=== PATIENT | male | born 1955 | race Caucasian/White ===

== ENCOUNTER → 2016-04-06 | Outpatient (CLI) | payer OTHER, MEDICARE ==
[~2016-04-06] MED LIST: ACET-1256 PO; ALBINS/ INH; ALBUAER2 INH; ASCO500T16 PO; ASPI81TA28 PO; BND25X PO; CLON0.5T3 PO; CLON1TAB3 PO; DIPH25CA5 PO; DOXY100C76 PO; FENO134C2 PO; GABA800T PO; HYDR-3124 PO; INSDGI SC; INSPMPRGR SQ; INSUINJ17 SC; LISI-725 PO; MELO15TA4 PO; METR-163 PO; MULT-513 PO; ONDA4TAB10 SL; PRAV20TA PO; PRED20TA PO; SERT-234 PO; TEMA30CA4 PO; VNTHFA/IN INH; mucinex PO
--- NOTE | 2016-04-06 15:14 | DIAGNOSTIC IMAGING REPORT ---
TWO VIEW CHEST CLINICAL HISTORY: Cough. Fever. FINDINGS: PA and lateral chest radiographs are compared to study dated 03/11/2016 and correlated with chest CT dated 07/10/2015. The heart is mildly enlarged. The pulmonary vasculature is noncongested. The lungs and pleural spaces are clear. There is no pneumothorax. Small calcified granulomas are similar to previous. The bony thorax appears intact. Degenerative change and DISH are noted in the thoracic spine. IMPRESSION: Mild cardiac enlargement with no acute cardiopulmonary abnormality. Electronically signed by: Yahir Thomas M.D. 04/06/2016 3:12 PM
== END | disposition home or self-care (01) ==
LOC: C.RAD 14:48
PROVIDERS: ATTEND Family Medicine
DX: R05 Cough (principal)

== ENCOUNTER 2016-04-13 14:36 | Emergency (ER) | payer OTHER, MEDICARE ==
[~2016-04-13] VITALS: Ht 185.4 cm; Wt 127.6 kg
[~2016-04-13 14:36] MED LIST changes: -ACET-1256 PO; -ALBINS/ INH; -ASCO500T16 PO; -ASPI81TA28 PO; -BND25X PO; -CLON0.5T3 PO; -CLON1TAB3 PO; -DIPH25CA5 PO; -DOXY100C76 PO; -FENO134C2 PO; -GABA800T PO; -HYDR-3124 PO; -INSDGI SC; -INSPMPRGR SQ; -INSUINJ17 SC; -LISI-725 PO; -MELO15TA4 PO; -METR-163 PO; -MULT-513 PO; -PRAV20TA PO; -PRED20TA PO; -SERT-234 PO; -TEMA30CA4 PO; -VNTHFA/IN INH; -mucinex PO
[2016-04-13 14:46] VITALS: TEMP 37; Ht 185.4 cm; Wt 127.6 kg
--- NOTE | 2016-04-13 15:37 | DIAGNOSTIC IMAGING REPORT ---
CHEST ONE VIEW PORTABLE CLINICAL HISTORY: Respiratory distress. Dyspnea. COMPARISON STUDY: Chest radiograph September. FINDINGS: Lung volumes are at the lower limits of normal. Mild lower lung interstitial thickening is unchanged. There is no evidence of pulmonary edema. Cardiomediastinal silhouette is stable. IMPRESSION: No acute cardiopulmonary findings. No change in appearance of the chest. Electronically signed by: Lm Quintanilla M.D. 04/13/2016 3:35 PM Dictated Date/Time: 04/13/2016 3:34 PM
[2016-04-13] MEDS ORDERED: METHYLPREDNISOLONE 125 MG VIAL IV STA (15:43)
[2016-04-13] MEDS ORDERED: ALBUT/IPRATROP 3MG/0.5MG NEB 3 ML VIAL INH STA (15:43)
[2016-04-13] MEDS ORDERED: LORAZEPAM 1 MG TAB SL STA (15:49)
[2016-04-13 16:11] LABS: BASO % 0.3 %; BASO ABS # 0.03 K/uL (0-0.2); COMPLETE YES; EOS % 2.6 %; HEMATOCRIT 41.8 % (42-52); IG% 0.4 %; LYMPH % 27.8 %; LYMPH ABS # 2.55 K/uL (1.2-3.4); MEAN CELL VOLUME 85.8 fL (80-100); MEAN CORPUSCULAR HEMOGLOBIN 28.7 pg (25-34); MEAN CORPUSCULAR HGB CONC 33.5 g/dl (32-36); MEAN PLATELET VOLUME 10.2 fL (7.4-10.4); NEUT % 63.9 %; PLATELET COUNT 242 K/uL (130-400); RED BLOOD COUNT 4.87 M/uL (4.7-6.1); WHITE BLOOD COUNT 9.18 K/uL (4.8-10.8)
[2016-04-13 16:27] LABS: BUN/CREATININE RATIO 25.1 (10-20); CALCIUM 9.7 mg/dl (8.5-10.1); CREATININE 1.3 mg/dl (0.60-1.40); POTASSIUM 4.8 mmol/L (3.5-5.1)
[2016-04-13 16:29] LABS: ALB/GLOB RATIO 0.8 (0.9-2)
[2016-04-13 16:36] LABS: BETA-HYDROXYBUTYRATE 2.05 mg/dL (0.2-2.81)
[2016-04-13] MEDS ORDERED: NovoLIN-R INSULIN PER UNIT CHARGE IV STA (17:10)
[2016-04-13] MEDS ORDERED: DOXYCYCLINE HYCLATE 100 MG CAP PO ONE (17:15)
[2016-04-13] MEDS ORDERED: DOXY100C76 PO (18:45)
[2016-04-13] MEDS ORDERED: PRED20TA PO (18:45)
[2016-04-13] MEDS ORDERED: ALBINS/ INH (18:45)
[2016-04-13 19:05] VITALS: BP 126/90; PULSE 104; O2SAT 93
--- NOTE | 2016-04-13 22:48 | EMERGENCY ROOM VISIT NOTE ---
History Report prepared by David: Chastity Oakley Under the Supervision of: Dr. Jose Armando Bermeo M.D. First contact with patient: 15:15 Chief Complaint: RESPIRATORY PROBLEMS Stated Complaint: EXAC COPD History of Present Illness The patient is a 60 year old male who presents to the Emergency Room with complaints of worsening cough for the past several weeks. He states "I've been sick since Thanksgiving". 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 He reports he usually experiences bronchitis and pneumonia every year because of that. His cough is productive with green sputum and he has also experienced some shortness of breath and a fever. His highest temperature was 100.6 degrees. He has experienced diaphoresis in the evenings, stating he has had to change his pajamas "twice a night". The patient notes he recently finished Levaquin after being diagnosed with conjunctivitis and was started on an Albuterol nebulizer last week. The nebulizer has provided minimal relief, but has increased the patient's anxiety. The last time he was on steroids was early in the fall of 2016. He is a former smoker but states he quit 15 years ago. His appetite has been "too good" recently. The patient denies any LOC, headache, chills, visual changes, neck pain, chest pain, nausea , vomiting, abdominal pain, back pain, melena, hematochezia, urinary symptoms, numbness, weakness, lymphadenopathy, rash, or other complaints. Source of History: patient Onset: past several weeks Position: chest Timing: worsening Modifying Factors (Relieving): other (Albuterol nebulizer) Associated Symptoms: + SOB, + diaphoresis, + fevers Review of Systems See HPI for pertinent positives and negatives. A total of ten systems were reviewed and were otherwise negative. Past Medical & Surgical Medical Problems: (1) animal bite cellulitis (2) Anxiety (3) Diabetes (4) Hyperlipidemia (5) Hypertension (6) PTSD (post-traumatic stress disorder) Family History Patient reports no known family medical history. Social History Smoking Status: Former Smoker Alcohol Use: none Drug Use: none Marital Status: in relationship Housing Status: lives with significant other Occupation Status: disabled Current/Historical Medications Scheduled Aspirin (Aspirin Ec), 81 MG PO DAILY Clonazepam (Klonopin), 1 MG PO TID Doxycycline Monohydrate (Monodox), 100 MG PO BID Fenofibrate (Tricor ), 134 MG PO DAILY Gabapentin (Neurontin), 800 MG PO TID Insulin Glargine (Lantus), 88 UNITS SC QPM Insulin Human Regular (Humulin R), 20 UNITS SQ HS Insulin Regular (Humulin-R), 12 UNITS SC TIDM Lisinopril (Zestril), 20 MG PO HS Multivitamins/Minerals (Mvi With Minerals), 1 TAB PO DAILY Ondasetron Odt (Zofran Odt), 4 MG SL Q6H Pravastatin (Pravachol ), 20 MG PO DAILY Prednisone (Prednisone), 40 MG PO DAILY Sertraline (Zoloft), 100 MG PO DAILY Temazepam (Restoril), 30 MG PO HS [mucinex], 50 MG PO TID Scheduled PRN Acetaminophen (Tylenol), 1,000 MG PO HS PRN for Pain Albuterol (Ventolin), 2 PUFFS INH QID PRN for Shortness of Breath Albuterol Sulf (Proventil 0.083% 2.5MG/3ML), 2.5 MG INH QID PRN for Shortness of Breath Diphenhydramine Hcl (Benadryl *), 50 MG PO HS PRN for Sleep Meloxicam (Meloxicam), 15 MG PO HS PRN for Pain Allergies Coded Allergies: Codeine (Unverified Allergy, Unknown, RASH, VOMITING, 04/13/16) Penicillins (Unverified Allergy, Unknown, RASH, 04/13/16) Physical Exam Vital Signs Date Time Temp Pulse Resp B/P Pulse Ox O2 Delivery O2 Flow Rate FiO2 04/13/16 19:05 104 22 126/90 93 04/13/16 17:40 110 24 90 04/13/16 16:19 96 20 114/85 99 8.0 04/13/16 16:16 Nasal Cannula 2.0 04/13/16 16:16 Room Air Nasal Cannula 04/13/16 16:05 Room Air 04/13/16 15:28 98 04/13/16 14:46 37.0 115 19 12/81 95 Room Air Physical Exam GENERAL: Awake, alert, uncomfortable-appearing, in no distress HENT: Normocephalic, atraumatic. Oropharynx unremarkable. EYES: Normal conjunctiva. Sclera non-icteric. NECK: Supple. No nuchal rigidity. FROM. No JVD. RESPIRATORY: Moderate cough present. CARDIAC: Regular rate, normal rhythm. Extremities warm and well perfused. Pulses equal. ABDOMEN: Soft, non-distended. No tenderness to palpation. No rebound or guarding. No masses. RECTAL: Deferred. MUSCULOSKELETAL: Chest examination reveals no tenderness. The back is symmetrical on inspection without obvious abnormality. There is no CVA tenderness to palpation. No joint edema. LOWER EXTREMITIES: Calves are equal size bilaterally and non-tender. No edema. No discoloration. NEURO: Normal sensorium. No sensory or motor deficits noted. SKIN: No rash or jaundice noted. Medical Decision & Procedures ER Provider Diagnostic Interpretation: This X-Ray was reviewed and interpreted by myself and the radiologist. CHEST ONE VIEW PORTABLE CLINICAL HISTORY: Respiratory distress. Dyspnea. COMPARISON STUDY: Chest radiograph September. FINDINGS: Lung volumes are at the lower limits of normal. Mild lower lung interstitial thickening is unchanged. There is no evidence of pulmonary edema. Cardiomediastinal silhouette is stable. IMPRESSION: No acute cardiopulmonary findings. No change in appearance of the chest. Electronically signed by: Lm Quintanilla M.D. 04/13/2016 3:35 PM Dictated Date/Time: 04/13/2016 3:34 PM Laboratory Results 04/13/16 15:40 Red Blood Count 4.87, Mean Corpuscular Volume 85.8, Mean Corpuscular Hemoglobin 28.7, Mean Corpuscular Hemoglobin Concent 33.5, Mean Platelet Volume 10.2, Neutrophils (%) (Auto) 63.9, Lymphocytes (%) (Auto) 27.8, Monocytes (%) (Auto) 5.0, Eosinophils (%) (Auto) 2.6, Basophils (%) (Auto) 0.3, Neutrophils # (Auto) 5.86, Lymphocytes # (Auto) 2.55, Monocytes # (Auto) 0.46, Eosinophils # (Auto) 0.24, Basophils # (Auto) 0.03 04/13/16 15:40 Test 04/13/16 00:00 04/13/16 15:40 04/13/16 18:25 Influenza Type A Antigen Neg for Influ A (NEG) Influenza Type B Antigen Neg for Influ B (NEG) White Blood Count 9.18 K/uL (4.8-10.8) Red Blood Count 4.87 M/uL (4.7-6.1) Hemoglobin 14.0 g/dL (14.0-18.0) Hematocrit 41.8 % (42-52) Mean Corpuscular Volume 85.8 fL (80-100) Mean Corpuscular Hemoglobin 28.7 pg (25-34) Mean Corpuscular Hemoglobin Concent 33.5 g/dl (32-36) Platelet Count 242 K/uL (130-400) Mean Platelet Volume 10.2 fL (7.4-10.4) Neutrophils (%) (Auto) 63.9 % Lymphocytes (%) (Auto) 27.8 % Monocytes (%) (Auto) 5.0 % Eosinophils (%) (Auto) 2.6 % Basophils (%) (Auto) 0.3 % Neutrophils # (Auto) 5.86 K/uL (1.4-6.5) Lymphocytes # (Auto) 2.55 K/uL (1.2-3.4) Monocytes # (Auto) 0.46 K/uL (0.11-0.59) Eosinophils # (Auto) 0.24 K/uL (0-0.5) Basophils # (Auto) 0.03 K/uL (0-0.2) RDW Standard Deviation 40.2 fL (36.4-46.3) RDW Coefficient of Variation 12.7 % (11.5-14.5) Immature Granulocyte % (Auto) 0.4 % Immature Granulocyte # (Auto) 0.04 K/uL (0.00-0.02) Anion Gap 11.0 mmol/L (3-11) Est Creatinine Clear Calc Drug Dose 83.5 ml/min Estimated GFR () 68.3 Estimated GFR (Non- 58.9 BUN/Creatinine Ratio 25.1 (10-20) Calcium Level 9.7 mg/dl (8.5-10.1) Total Bilirubin 0.2 mg/dl (0.2-1) Aspartate Amino Transf (AST/SGOT) 20 U/L (15-37) Alanine Aminotransferase (ALT/SGPT) 26 U/L (12-78) Alkaline Phosphatase 52 U/L (45-117) Total Protein 7.7 gm/dl (6.4-8.2) Albumin 3.5 gm/dl (3.4-5.0) Globulin 4.2 gm/dl (2.5-4.0) Albumin/Globulin Ratio 0.8 (0.9-2) Beta-Hydroxybutyric Acid 2.05 mg/dL (0.2-2.81) Bedside Glucose 342 mg/dl (70-99) Laboratory results reviewed by me Medications Administered Medications (Trade) Dose Ordered Sig/Johny Route Start Time Stop Time Status Last Admin Dose Admin Albuterol/ Ipratropium (Duoneb) 3 ml NOW STAT INH 04/13/16 15:43 04/13/16 15:46 DC 04/13/16 16:13 3 ML Methylprednisolone Sodium Succinate (Solu-Medrol IV) 125 mg NOW STAT IV 04/13/16 15:43 04/13/16 15:46 DC 04/13/16 16:12 125 MG Lorazepam (Ativan Tab) 1 mg NOW STAT SL 04/13/16 15:49 04/13/16 15:50 DC 04/13/16 16:12 1 MG Insulin Human Regular (novoLIN-R U-100 PER UNIT) 8 units NOW STAT IV 04/13/16 17:10 04/13/16 17:12 DC 04/13/16 17:23 8 UNITS Doxycycline Hyclate (Vibramycin Cap) 100 mg ONE ONCE PO 04/13/16 17:15 04/13/16 17:16 DC 04/13/16 17:21 100 MG ECG Indication: SOB/dyspnea Rate (beats per minute): 96 Rhythm: normal sinus (normal sinus rhythm) Findings: no acute ischemic change, no ectopy ED Course 1538: The patient was evaluated in room B4. A complete history and physical exam was performed. 1543: Solu-Medrol 125 mg IV, DuoNeb 3 ml INH. 1549: Ativan 1 mg SL. 1703: I reevaluated the patient. He is resting comfortably and feeling well. 1710: Novolin 8 units IV. 1715: Vibramycin 100 mg PO. 1820: I reevaluated the patient. He is feeling much better. I discussed his results and discharge instructions and he verbalized complete understanding and agreement. Medical Decision Triage Nursing notes reviewed. The patient's presentation and history were concerning for respiratory problems.. Etiologies such as pneumonia, COPD, reactive airway disease, CHF, cardiac ischemia, pulmonary embolism, pneumothorax, musculoskeletal, infections, gastrointestinal, as well as others were entertained. The patient was evaluated. Clinically he was doing relatively well. He had a cough. The patient was offered prednisone as an outpatient but declined. Patient notes a low-grade fever. He was treated with a nebulizer. He did request Ativan as he feels very anxious with this type of treatment. The patient also was given Solu-Medrol. He did very well with this. The patient was noted to have some mild hyperglycemia on his chemistry panel. CBC was normal. Flu test was negative. The patient was hyperglycemic and was treated with insulin. He notes that his diet has not been ideal recently. The patient notes significant sinus issues and feels like he has another sinus infection. He was offered doxycycline but I did discuss the risks and benefits given the possibility of C. difficile. The patient was aware and felt like his symptoms warranted the risk. On reassessment the patient was doing excellent. He was not requiring supplemental oxygen. He was able to ambulate without hypoxia. His breathing was much better. I believe that he will need steroids but I will give him a lower dose and a short course. He will need close outpatient follow- up. He will be treated with doxycycline. The patient has a nebulizer at home but did ask for solution. He was prescribed a box of albuterol nebs. If he worsens in any way he will be back to the emergency department. The patient felt very comfortable with this plan. By the evaluation outlined above other emergent etiologies such as those listed in the differential, as well as others, were deemed relatively unlikely. The the patient and his partner were informed about the findings as listed above. All questions were answered and they were pleased with the treatment. Return instructions were outlined and the patient was discharged in stable condition. The patient was referred to his PCP for follow-up this week for a recheck of the current condition. The chart was completed utilizing [employer] Speech voice recognition software. Grammatical errors, random word insertions, pronoun errors, and incomplete sentences are an occasional consequence of this system due to software limitations, ambient noise, and hardware issues. Any formal questions or concerns about the content, text, or information contained within the body of this dictation should be directly addressed to the physician for clarification. Impression Primary Impression: COPD (chronic obstructive pulmonary disease) Additional Impression: Sinusitis Scribe Attestation The scribe's documentation has been prepared under my direction and personally reviewed by me in its entirety. I confirm that the note above accurately reflects all work, treatment, procedures, and medical decision making performed by me. Departure Information Dispostion Home / Self-Care Prescriptions Prednisone (Prednisone) 20 Mg Tab 40 MG PO DAILY for 3 Days, #6 TAB Prov: Jose Armando Bermeo MD 04/13/16 Albuterol Sulf (PROVENTIL 0.083% 2.5MG/3ML) 2.5 Mg/3 Ml Nebu 2.5 MG INH QID Y for Shortness of Breath, #1 BOX Prov: Jose Armando Bremeo MD 04/13/16 Doxycycline Monohydrate (Monodox) 100 Mg Cap 100 MG PO BID, #19 CAP Prov: Jose Armando Bermeo MD 04/13/16 Referrals No Doctor, Assigned (PCP) Patient Instructions A Signature Page, [facility] Additional Instructions Diagnosis: #1 COPD #2 sinusitis Doxycycline 100mg: Take one pill twice daily for 10 days for your infection. Take with food, but avoid dairy. Avoid prolonged sun exposure since this medication makes you temporarily more susceptible to sunburns. All antibiotics can cause diarrhea. If this occurs and you feel worse or it does not resolve in 1-2 days follow up with your doctor or return to the Emergency Department as this could be signs of serious underlying problems. Any medication can cause an allergic reaction, stop the pills immediately and return to the ER for rash, hives, breathing difficulties, or swelling. Albuterol nebulizer: Take one four times daily for seven days, then as needed. Prednisone 40 mg: Once daily until the prescription is finished. Watch blood glucose closely. Maintain your diabetic diet. Use your sliding scale insulin coverage to keep your blood sugar under control. Acetaminophen(Tylenol) may be used for fever or pain. Use 1000mg every six hours as needed. Avoid using more than 4000mg in a 24 hour period. Controlling your fever with Tylenol and Ibuprofen as above will make you feel better. Rest and drink plenty of fluids. Avoid strenuous activity until your symptoms resolve and your breathing returns to normal. Return to the ER for chest pain, difficulty breathing, persistent fevers, vomiting, worsening of your condition, or as needed. Follow up with your primary physician in 2-3 days for a recheck of the current condition.
[2016-07-20] MEDS ORDERED: BND25 PO (13:49)
== END 2016-04-13 19:06 | disposition home or self-care (01) ==
LOC: C.EDB 14:40
DX: J44.9 Chronic obstructive pulmonary disease, unspecified (principal); J32.9 Chronic sinusitis, unspecified; E11.65 Type 2 diabetes mellitus with hyperglycemia; I10 Essential (primary) hypertension; E78.5 Hyperlipidemia, unspecified; F41.9 Anxiety disorder, unspecified; F43.10 Post-traumatic stress disorder, unspecified; Z87.891 Personal history of nicotine dependence; Z79.4 Long term (current) use of insulin; Z79.82 Long term (current) use of aspirin; Z79.899 Other long term (current) drug therapy

== ENCOUNTER 2016-06-29 14:48 | Emergency (ER) | payer OTHER, MEDICARE ==
[~2016-06-29] VITALS: Ht 182.9 cm; Wt 126.1 kg
[~2016-06-29 14:48] MED LIST changes: +ALBINS/ INH; +DOXY100C76 PO
[2016-06-29] MEDS ORDERED: ACET-1256 PO (14:59)
[2016-06-29 15:06] VITALS: TEMP 37.1; Ht 182.9 cm; Wt 126.1 kg
[2016-06-29] MEDS ORDERED: LISI-725 PO (15:27)
[2016-06-29] MEDS ORDERED: INSUINJ17 SC (15:27)
[2016-06-29] MEDS ORDERED: INSDGI SC (15:27)
[2016-06-29] MEDS ORDERED: BND25X PO (15:28)
[2016-06-29] MEDS ORDERED: INSPMPRGR SQ (15:43)
[2016-06-29] MEDS ORDERED: MULT-513 PO (16:34)
[2016-06-29] MEDS ORDERED: ASPI81TA28 PO (16:38)
[2016-06-29] MEDS ORDERED: SERT-234 PO (16:38)
[2016-06-29] MEDS ORDERED: MELO15TA4 PO (16:38)
[2016-06-29] MEDS ORDERED: CLON1TAB3 PO (16:38)
[2016-06-29] MEDS ORDERED: FENO134C2 PO (16:38)
[2016-06-29] MEDS ORDERED: GABA800T PO (16:38)
[2016-06-29] MEDS ORDERED: mucinex PO (16:38)
[2016-06-29] MEDS ORDERED: PRAV20TA PO (16:38)
[2016-06-29] MEDS ORDERED: TEMA30CA4 PO (16:38)
[2016-06-29] MEDS ORDERED: SODIUM CHLORIDE 0.9% 1000ML 1,000 ML IV STA (16:55)
[2016-06-29] MEDS ORDERED: VNTHFA/IN INH (17:15)
[2016-06-29 17:21] LABS: BASO % 0.3 %; BASO ABS # 0.02 K/uL (0-0.2); COMPLETE YES; EOS % 3.5 %; HEMATOCRIT 44.7 % (42-52); IG% 0.2 %; LYMPH % 30.3 %; LYMPH ABS # 1.98 K/uL (1.2-3.4); MEAN CELL VOLUME 84.7 fL (80-100); MEAN CORPUSCULAR HEMOGLOBIN 29.4 pg (25-34); MEAN CORPUSCULAR HGB CONC 34.7 g/dl (32-36); MEAN PLATELET VOLUME 10.3 fL (7.4-10.4); MONO % 7.5 %; NEUT % 58.2 %; PLATELET COUNT 131 K/uL (130-400); RED BLOOD COUNT 5.28 M/uL (4.7-6.1); WHITE BLOOD COUNT 6.53 K/uL (4.8-10.8)
[2016-06-29 17:31] LABS: URINE APPEARANCE CLEAR (CLEAR); URINE BILIRUBIN NEG (NEG); URINE COLOR DK YELLOW; URINE EPITHELIAL CELL AUTO 0-5 /lpf (0-5); URINE NITRITE NEG (NEG); URINE SPECIFIC GRAVITY 1.021 (1.000-1.030); UROBILINOGEN NEG (NEG); ZZUR CULT IF INDIC CLEAN CATCH NO
[2016-06-29 17:36] LABS: MANUAL MICROSCOPIC REQUIRED? NO; REVIEW REQ? NO
[2016-06-29 17:41] LABS: BUN/CREATININE RATIO 17.8 (10-20); CREATININE 1.2 mg/dl (0.60-1.40); POTASSIUM 4.1 mmol/L (3.5-5.1)
--- NOTE | 2016-06-29 18:26 | DIAGNOSTIC IMAGING REPORT ---
Right upper quadrant ultrasound GALLBLADDER-ABD LIMITED CLINICAL HISTORY: RUQ abdominal discomfort pain. Nausea. TECHNIQUE: Ultrasound COMPARISON STUDY: None FINDINGS: Pancreas is secured by overlying bowel content. Fatty infiltration of liver. Small amount of gallbladder sludge. No shadowing gallstones. Common bile duct 7 mm. Intrahepatic ducts normal. Right kidney negative for hydronephrosis. IMPRESSION: Trace to minimal gallbladder sludge. Mild prominence of the extra hepatic common bile duct at 7 mm. Fatty infiltration of liver. Electronically signed by: Emeterio Lo M.D. 06/29/2016 6:25 PM Dictated Date/Time: 06/29/2016 6:24 PM
[2016-06-29] MEDS ORDERED: METR-163 PO (19:07)
[2016-06-29] MEDS ORDERED: METRONIDAZOLE 250 MG TAB PO STA (19:07)
--- NOTE | 2016-06-29 19:07 | EMERGENCY ROOM VISIT NOTE ---
History Report prepared by David: Cinthya Mcrae Under the Supervision of: Dr. Everardo Olmedo M.D. First contact with patient: 16:48 Chief Complaint: ABDOMINAL PAIN Stated Complaint: NAUSEA, VOMITING, DIARRHEA, R SIDE ABDOMINAL PAIN Nursing Triage Summary: Pt c/o "fatigue, diabetes out of control, profuse diarrhea, vomiting, RUQ pain" sx x2 weeks History of Present Illness The patient is a 60 year old male who presents to the Emergency Room with complaints of worsening right-sided abdominal pain that started 3 days ago. The pain radiates into his back. He is also experiencing diarrhea, which also started 3 days ago. He states that his stools now resemble "white kalie." The patient is also experiencing nausea and vomiting. He states that he has only eaten one meal all weekend. The patient states that he has been experiencing vague abdominal distention over the past 3 weeks. Additionally, the patient states that his blood sugars have been in the 300s even though he has been watching his diet. He is also experiencing worsening bilateral lower extremity edema. The patient denies any history of liver or gallbladder problems. He also denies any previous abdominal surgeries. The patient saw Dr. Farmer earlier today and he suspected that the patient's symptoms are due to worsening gastroparesis, but he recommended that the patient come into the ED for further evaluation. The patient expresses concern that his symptoms are due to cancer because his mother from it. Source of History: patient Onset: 3 days ago Position: abdomen (right-sided) Timing: worsening (right-sided) Associated Symptoms: + diarrhea, + nausea, + vomiting Note: abdominal distention, worsening bilateral lower extremity edema Review of Systems See HPI for pertinent positives & negatives. A total of 10 systems reviewed and were otherwise negative. Past Medical & Surgical Medical Problems: (1) animal bite cellulitis (2) Anxiety (3) Diabetes (4) Hyperlipidemia (5) Hypertension (6) PTSD (post-traumatic stress disorder) Family History Patient reports no known family medical history. Social History Smoking Status: Never Smoker Alcohol Use: none Drug Use: none Marital Status: in relationship Housing Status: lives with significant other Occupation Status: disabled Current/Historical Medications Scheduled Aspirin (Aspirin Ec), 81 MG PO DAILY Clonazepam (Klonopin), 1 MG PO TID Fenofibrate (Tricor ), 134 MG PO DAILY Gabapentin (Neurontin), 800 MG PO TID Insulin Glargine (Lantus), 88 UNITS SC QPM Insulin Human Regular (Humulin R), 20 UNITS SQ HS Insulin Regular (Humulin-R), 12 UNITS SC TIDM Lisinopril (Zestril), 20 MG PO HS Metronidazole (Flagyl), 500 MG PO TID Multivitamins/Minerals (Mvi With Minerals), 1 TAB PO DAILY Pravastatin (Pravachol ), 20 MG PO DAILY Sertraline (Zoloft), 100 MG PO DAILY Temazepam (Restoril), 30 MG PO HS [mucinex], 50 MG PO TID Scheduled PRN Acetaminophen (Tylenol), 1,000 MG PO HS PRN for Pain Albuterol Hfa (Ventolin Hfa), 2 PUFFS INH Q6H PRN for Shortness of Breath Diphenhydramine Hcl (Benadryl *), 50 MG PO HS PRN for Sleep Meloxicam (Meloxicam), 15 MG PO HS PRN for Pain Allergies Coded Allergies: Codeine (Unverified Allergy, Unknown, RASH, VOMITING, 04/13/16) Penicillins (Unverified Allergy, Unknown, RASH, 04/13/16) Physical Exam Vital Signs Date Time Temp Pulse Resp B/P Pulse Ox O2 Delivery O2 Flow Rate FiO2 06/29/16 19:29 82 18 154/70 97 06/29/16 17:00 77 20 134/86 96 Room Air 06/29/16 15:06 37.1 88 20 117/82 96 Room Air Physical Exam GENERAL: Patient is very anxious appearing and in no acute distress. HEENT: No acute trauma, normocephalic atraumatic, mucous membranes moist, no nasal congestion, no scleral icterus. NECK: No stridor, no adenopathy, no meningismus, trachea is midline. LUNGS: No dyspnea. Clear to auscultation and equal bilaterally. No wheeze, no rhonchi. HEART: Regular rate and rhythm. No murmurs, rubs, gallops appreciated. ABDOMEN: Soft, mild right upper quadrant tenderness to palpation, bowel sounds positive, no masses appreciated, no peritonitis. BACK: No midline tenderness, no CVA tenderness EXTREMITIES: Normal motion all extremities, no cyanosis, no edema. NEUROLOGIC: Alert and oriented, no acute motor or sensory deficits, no focal weakness, cranial nerves grossly intact. SKIN: No rash, no jaundice, no diaphoresis. Medical Decision & Procedures ER Provider Diagnostic Interpretation: US results and stated below per my review and radiologist interpretation: Right upper quadrant ultrasound GALLBLADDER-ABD LIMITED IMPRESSION: Trace to minimal gallbladder sludge. Mild prominence of the extra hepatic common bile duct at 7 mm. Fatty infiltration of liver. Electronically signed by: Emeterio Lo M.D. 06/29/2016 6:25 PM Dictated Date/Time: 06/29/2016 6:24 PM Laboratory Results 06/29/16 17:00 Red Blood Count 5.28, Mean Corpuscular Volume 84.7, Mean Corpuscular Hemoglobin 29.4, Mean Corpuscular Hemoglobin Concent 34.7, Mean Platelet Volume 10.3, Neutrophils (%) (Auto) 58.2, Lymphocytes (%) (Auto) 30.3, Monocytes (%) (Auto) 7.5, Eosinophils (%) (Auto) 3.5, Basophils (%) (Auto) 0.3, Neutrophils # (Auto) 3.80, Lymphocytes # (Auto) 1.98, Monocytes # (Auto) 0.49, Eosinophils # (Auto) 0.23, Basophils # (Auto) 0.02 06/29/16 17:00 Test 06/29/16 17:00 06/29/16 17:10 White Blood Count 6.53 K/uL (4.8-10.8) Red Blood Count 5.28 M/uL (4.7-6.1) Hemoglobin 15.5 g/dL (14.0-18.0) Hematocrit 44.7 % (42-52) Mean Corpuscular Volume 84.7 fL (80-100) Mean Corpuscular Hemoglobin 29.4 pg (25-34) Mean Corpuscular Hemoglobin Concent 34.7 g/dl (32-36) Platelet Count 131 K/uL (130-400) Mean Platelet Volume 10.3 fL (7.4-10.4) Neutrophils (%) (Auto) 58.2 % Lymphocytes (%) (Auto) 30.3 % Monocytes (%) (Auto) 7.5 % Eosinophils (%) (Auto) 3.5 % Basophils (%) (Auto) 0.3 % Neutrophils # (Auto) 3.80 K/uL (1.4-6.5) Lymphocytes # (Auto) 1.98 K/uL (1.2-3.4) Monocytes # (Auto) 0.49 K/uL (0.11-0.59) Eosinophils # (Auto) 0.23 K/uL (0-0.5) Basophils # (Auto) 0.02 K/uL (0-0.2) RDW Standard Deviation 40.2 fL (36.4-46.3) RDW Coefficient of Variation 13.1 % (11.5-14.5) Immature Granulocyte % (Auto) 0.2 % Immature Granulocyte # (Auto) 0.01 K/uL (0.00-0.02) Anion Gap 10.0 mmol/L (3-11) Est Creatinine Clear Calc Drug Dose 88.7 ml/min Estimated GFR () 75.2 Estimated GFR (Non- 64.9 BUN/Creatinine Ratio 17.8 (10-20) Calcium Level 9.0 mg/dl (8.5-10.1) Total Bilirubin 0.6 mg/dl (0.2-1) Direct Bilirubin 0.1 mg/dl (0-0.2) Aspartate Amino Transf (AST/SGOT) 19 U/L (15-37) Alanine Aminotransferase (ALT/SGPT) 28 U/L (12-78) Alkaline Phosphatase 40 U/L (45-117) Troponin I < 0.015 ng/ml (0-0.045) Total Protein 7.6 gm/dl (6.4-8.2) Albumin 4.2 gm/dl (3.4-5.0) Lipase 139 U/L (73-393) Urine Color DK YELLOW Urine Appearance CLEAR (CLEAR) Urine pH 5.0 (4.5-7.5) Urine Specific [place] 1.021 (1.000-1.030) Urine Protein NEG (NEG) Urine Glucose (UA) NEG (NEG) Urine Ketones TRACE (NEG) Urine Occult Blood NEG (NEG) Urine Nitrite NEG (NEG) Urine Bilirubin NEG (NEG) Urine Urobilinogen NEG (NEG) Urine Leukocyte Esterase NEG (NEG) Urine WBC (Auto) 0 /hpf (0-5) Urine RBC (Auto) 0-4 /hpf (0-4) Urine Hyaline Casts (Auto) 1-5 /lpf (0-5) Urine Epithelial Cells (Auto) 0-5 /lpf (0-5) Urine Bacteria (Auto) NEG (NEG) Laboratory results as reviewed by me. Medications Administered Medications (Trade) Dose Ordered Sig/Johny Route Start Time Stop Time Status Last Admin Dose Admin Sodium Chloride (Nss 1000ml) 1,000 ml @ 999 mls/hr Q1H1M STAT IV 06/29/16 16:55 06/29/16 17:55 DC 06/29/16 17:19 999 MLS/HR Metronidazole (Flagyl Tab) 500 mg NOW STAT PO 06/29/16 19:07 06/29/16 19:09 DC 06/29/16 19:24 500 MG Famotidine (Pepcid Tab) 20 mg NOW ONCE PO 06/29/16 19:15 06/29/16 19:16 DC 06/29/16 19:24 20 MG ECG Indication: abdominal pain Rate (beats per minute): 79 Rhythm: normal sinus Findings: no acute ischemic change, no ectopy ED Course 1650: The patient was evaluated in room C9. A complete history and physical exam was performed. 1654: Ordered Sodium Chloride 1000 ml @ 999 mls/hr IV 1857: Reevaluated the patient. He informed me that he feels like his symptoms are due to his C. Diff acting up. He states that he is unable to provide a stool sampe and wanted to be started on Flagyl. He also informed me that when he burps it smells like rotten eggs and he is also experiencing mild epigastric abdominal pain with eating. Lastly, he informed me that he thinks his stools were white because he used a whole bottle of TUMS over the weekend. Discussed results and discharge instructions: he verbalized understanding and agreement. The patient is ready for discharge. 1906: Ordered Flagyl Tab 500 mg PO 1914: Ordered Pepcid Tab 20 mg PO Medical Decision Differential: Cholecystitis, Gallbladder disfunction, Hepatic Disfunction, Gastritis/PUD, Pancreatitis, ACS, Aortic Pathology, amongst other pathologies entertained. 60 yr old male arrives with complaint RUQ abdominal pain and discoloration of stool. Exam of abdomen is non-surgical. Labs unremarkable. US with some sludge in GB and just mildly enlarged bile duct. No evidence acutely stuck stone otherwise and looks well. Admits eating large number tums earlier. He feels that his symptoms are definitely due to CDiff which he states this is identical to previous episode. He is unable to provide stool sample even after several hours. He wishes to be put on Flagyl and will follow up with hsi PCP for further evaluation. Discussed symptoms requiring return. I suspect he may have ulcer thus have advised Pepcid/Prilosec, etc as outpatient. Stable and in no distress. ongoing for several days thus with negative Trop and normal EKG I feel outpatient work-up reasonable. No evidence this is aortic in nature. Impression Primary Impression: Diarrhea Additional Impressions: Dehydration Epigastric abdominal pain Sludge in gallbladder Scribe Attestation The scribe's documentation has been prepared under my direction and personally reviewed by me in its entirety. I confirm that the note above accurately reflects all work, treatment, procedures, and medical decision making performed by me. Departure Information Dispostion Home / Self-Care Prescriptions Metronidazole (Flagyl) 500 Mg Tab 500 MG PO TID for 10 Days, #30 TAB Prov: Everardo Olmedo M.D. 06/29/16 Referrals Antonio Taveras M.D. (PCP) Forms HOME CARE DOCUMENTATION FORM, IMPORTANT VISIT INFORMATION Patient Instructions ED Epigastric Pain [facility], My [facility] Additional Instructions It is important you follow up with your primary care provider for further evaluation and treatment. Discuss having a HIDA scan, colonscopy, stool studies, etc. Return immediately if fevers, increased pain, passing out, blood in stool or other concerns. Take an anti-acid (Pepcid, Zantac, Prilosec etc) twice daily for the next week. Problem Qualifiers Primary Impression: Diarrhea Diarrhea type: presumed infectious Qualified Codes: A09 - Infectious gastroenteritis and colitis, unspecified
[2016-06-29] MEDS ORDERED: FAMOTIDINE 20 MG TAB PO ONE (19:15)
[2016-06-29 19:29] VITALS: BP 154/70; PULSE 82; O2SAT 97
[2016-07-20] MEDS ORDERED: BND25 PO (13:49)
== END 2016-06-29 19:30 | disposition home or self-care (01) ==
LOC: C.EDB 14:50 → C.EDC 19:30
DX: R10.11 Right upper quadrant pain (principal); R19.7 Diarrhea, unspecified; K82.9 Disease of gallbladder, unspecified; I10 Essential (primary) hypertension; E11.9 Type 2 diabetes mellitus without complications; E78.5 Hyperlipidemia, unspecified; F41.9 Anxiety disorder, unspecified; Z79.82 Long term (current) use of aspirin; Z79.4 Long term (current) use of insulin; Z79.84 Long term (current) use of oral hypoglycemic drugs; Z79.899 Other long term (current) drug therapy; Z88.0 Allergy status to penicillin; Z88.5 Allergy status to narcotic agent

== ENCOUNTER 2016-07-20 12:32 | Emergency (ER) | payer OTHER, MEDICARE ==
[~2016-07-20] VITALS: Ht 185.4 cm; Wt 131.0 kg
[~2016-07-20 12:32] MED LIST changes: +ACET-1256 PO; -ALBINS/ INH; -ALBUAER2 INH; +ASPI81TA28 PO; +BND25X PO; +CLON1TAB3 PO; -DOXY100C76 PO; +FENO134C2 PO; +GABA800T PO; +INSDGI SC; +INSPMPRGR SQ; +INSUINJ17 SC; +LISI-725 PO; +MELO15TA4 PO; +MULT-513 PO; -ONDA4TAB10 SL; +PRAV20TA PO; +SERT-234 PO; +TEMA30CA4 PO; +VNTHFA/IN INH; +mucinex PO
[2016-07-20 12:38] VITALS: TEMP 36.8; Ht 185.4 cm; Wt 131.0 kg
[2016-07-20] MEDS ORDERED: PROCHLORPERAZINE 5 MG/ML 2 ML VIAL IV STA (12:52)
[2016-07-20] MEDS ORDERED: SODIUM CHLORIDE 0.9% 1000ML 1,000 ML IV STA (12:52)
[2016-07-20] MEDS ORDERED: CLON0.5T3 PO (13:32)
[2016-07-20] MEDS ORDERED: HYDR-3124 PO (13:40)
[2016-07-20] MEDS ORDERED: ASCO500T16 PO (13:41)
[2016-07-20 13:42] LABS: BASO ABS # 0.06 K/uL (0-0.2); COMPLETE YES; EOS % 8.6 %; HEMATOCRIT 43.3 % (42-52); IG% 0.2 %; LYMPH % 41.9 %; LYMPH ABS # 2.62 K/uL (1.2-3.4); MEAN CELL VOLUME 86.8 fL (80-100); MEAN CORPUSCULAR HEMOGLOBIN 28.7 pg (25-34); MEAN PLATELET VOLUME 10.4 fL (7.4-10.4); MONO % 4.3 %; PLATELET COUNT 161 K/uL (130-400); RED BLOOD COUNT 4.99 M/uL (4.7-6.1); WHITE BLOOD COUNT 6.26 K/uL (4.8-10.8)
[2016-07-20] MEDS ORDERED: INSDGI SC (13:46)
[2016-07-20] MEDS ORDERED: DIPH25CA5 PO (13:49)
[2016-07-20 13:53] LABS: INR 0.9 (0.9-1.1); PARTIAL THROMBOPLASTIN RATIO 0.9; PROTHROMBIN TIME (PATIENT) 10.1 SECONDS (9.0-12.0)
[2016-07-20 13:59] LABS: URINE APPEARANCE CLEAR (CLEAR); URINE BILIRUBIN NEG (NEG); URINE COLOR YELLOW; URINE NITRITE NEG (NEG); URINE PH 6.5 (4.5-7.5); URINE SPECIFIC GRAVITY 1.024 (1.000-1.030); UROBILINOGEN NEG (NEG); ZZUR CULT IF INDIC CLEAN CATCH NO
[2016-07-20 14:03] LABS: MANUAL MICROSCOPIC REQUIRED? NO; REVIEW REQ? NO
--- NOTE | 2016-07-20 14:03 | DIAGNOSTIC IMAGING REPORT ---
CHEST ONE VIEW PORTABLE CLINICAL HISTORY: EVALUATE ALTERED MENTAL STATUS/WEAKNESS dyspnea COMPARISON STUDY: No previous studies for comparison. FINDINGS: 04/13/2016 IMPRESSION: Negative chest. Electronically signed by: Emeterio Lo M.D. 07/20/2016 2:01 PM Dictated Date/Time: 07/20/2016 2:01 PM
[2016-07-20 14:14] LABS: ALT/SGPT 33 U/L (12-78); AST/SGOT 19 U/L (15-37); BLOOD UREA NITROGEN 27 mg/dl (7-18); BUN/CREATININE RATIO 22.3 (10-20); CALCIUM 8.6 mg/dl (8.5-10.1); CARBON DIOXIDE 25 mmol/L (21-32); CHLORIDE 105 mmol/L (98-107); GLUCOSE 274 mg/dl (70-99); POTASSIUM 4.6 mmol/L (3.5-5.1); SODIUM 138 mmol/L (136-145)
[2016-07-20 14:27] LABS: ALKALINE PHOSPHATASE 36 U/L (45-117); CKMB/CK RATIO 1.8 (0-3.0)
--- NOTE | 2016-07-20 15:20 | EMERGENCY ROOM VISIT NOTE ---
History Report prepared by David: Lyn Galss Under the Supervision of: Dr. Anjel Colindres D.O. First contact with patient: 12:47 Chief Complaint: HEAD INJURY (MINOR) Stated Complaint: LIGHT HEADEDNEDNESS,ANXIETY,FALL 07/19/16 History of Present Illness The patient is a 60 year old male who presents to the Emergency Room with complaints of persistent anxiety starting 1.5 weeks ago. He reports weakness, shakiness, syncope, diarrhea, palpitations, low blood pressure and nausea. He fell yesterday. He is being weaned off his Klonopin by his psychiatrist. He has been on Klonopin for 4 years. He has been taken off his Restoril. He has not slept in 1.5 weeks. Source of History: patient Onset: 1.5 weeks ago Position: other (global) Quality: other (anxiety) Timing: other (persistent) Associated Symptoms: + diarrhea, + nausea, + weakness Note: Pt reports shakiness, syncope, palpitations, low blood pressure, fall. Review of Systems See HPI for pertinent positives & negatives. A total of 10 systems reviewed and were otherwise negative. Past Medical & Surgical Medical Problems: (1) animal bite cellulitis (2) Anxiety (3) Diabetes (4) Hyperlipidemia (5) Hypertension (6) PTSD (post-traumatic stress disorder) Family History Diabetes mellitus Gallbladder disease Hypertension Social History Smoking Status: Never Smoker Alcohol Use: none Drug Use: none Marital Status: in relationship Housing Status: lives with significant other Occupation Status: disabled Current/Historical Medications Scheduled Ascorbic Acid (Ascorbic Acid), 500 MG PO DAILY Aspirin (Aspirin Ec), 81 MG PO DAILY Clonazepam (Klonopin), 0.5 MG PO BID Fenofibrate (Tricor ), 134 MG PO DAILY Gabapentin (Neurontin), 800 MG PO TID Hydroxyzine Hcl (Atarax), 25 MG PO BID Insulin Glargine (Lantus), 88 UNITS SC QPM Insulin Human Regular (Humulin R), 1 DOSE SQ QID Lisinopril (Zestril), 20 MG PO HS Multivitamins/Minerals (Mvi With Minerals), 1 TAB PO DAILY Pravastatin (Pravachol ), 20 MG PO DAILY Sertraline (Zoloft), 100 MG PO DAILY [mucinex], 50 MG PO TID Scheduled PRN Acetaminophen (Tylenol), 1,000 MG PO HS PRN for Pain Diphenhydramine Hcl (Benadryl), 50 MG PO HS PRN for Sleep Meloxicam (Meloxicam), 15 MG PO HS PRN for Pain Allergies Coded Allergies: Codeine (Unverified Allergy, Unknown, RASH, VOMITING, 07/20/16) Penicillins (Unverified Allergy, Unknown, RASH, 07/20/16) Physical Exam Vital Signs Date Time Temp Pulse Resp B/P Pulse Ox O2 Delivery O2 Flow Rate FiO2 07/20/16 15:41 73 16 132/89 96 07/20/16 14:08 69 20 128/58 96 Room Air 07/20/16 13:19 70 07/20/16 12:38 36.8 80 20 96 Room Air Physical Exam CONSTITUTIONAL/VITAL SIGNS: Reviewed / noted above. GENERAL: Non-toxic in appearance. INTEGUMENTARY: Warm, dry, and [place]. HEAD: Normocephalic. EYES: without scleral icterus or trauma. ENT/OROPHARYNX: clear and moist. LYMPHADENOPATHY/NECK: Is supple without lymphadenopathy or meningismus. RESPIRATORY: Lungs clear and equal. CARDIOVASCULAR: Regular rate and rhythm. GI/ABDOMEN: Soft and nontender. No organomegaly or pulsatile mass. No rebound or guarding. Normal bowel sounds. EXTREMITIES: Warm and well perfused. BACK: No CVA tenderness. NEUROLOGICAL: Intact without focal deficits. PSYCHIATRIC: normal affect. MUSCULOSKELETAL: Normally developed with good muscle tone. Medical Decision & Procedures ER Provider Diagnostic Interpretation: X ray results and stated below per my interpretation and radiology interpretation. CHEST ONE VIEW PORTABLE CLINICAL HISTORY: EVALUATE ALTERED MENTAL STATUS/WEAKNESS dyspnea COMPARISON STUDY: No previous studies for comparison. FINDINGS: 04/13/2016 IMPRESSION: Negative chest. Electronically signed by: Emeterio Lo M.D. 07/20/2016 2:01 PM Dictated Date/Time: 07/20/2016 2:01 PM Laboratory Results 07/20/16 13:10 Red Blood Count 4.99, Mean Corpuscular Volume 86.8, Mean Corpuscular Hemoglobin 28.7, Mean Corpuscular Hemoglobin Concent 33.0, Mean Platelet Volume 10.4, Neutrophils (%) (Auto) 44.0, Lymphocytes (%) (Auto) 41.9, Monocytes (%) (Auto) 4.3, Eosinophils (%) (Auto) 8.6, Basophils (%) (Auto) 1.0, Neutrophils # (Auto) 2.76, Lymphocytes # (Auto) 2.62, Monocytes # (Auto) 0.27, Eosinophils # (Auto) 0.54, Basophils # (Auto) 0.06 07/20/16 13:10 Test 07/20/16 13:10 White Blood Count 6.26 K/uL (4.8-10.8) Red Blood Count 4.99 M/uL (4.7-6.1) Hemoglobin 14.3 g/dL (14.0-18.0) Hematocrit 43.3 % (42-52) Mean Corpuscular Volume 86.8 fL (80-100) Mean Corpuscular Hemoglobin 28.7 pg (25-34) Mean Corpuscular Hemoglobin Concent 33.0 g/dl (32-36) Platelet Count 161 K/uL (130-400) Mean Platelet Volume 10.4 fL (7.4-10.4) Neutrophils (%) (Auto) 44.0 % Lymphocytes (%) (Auto) 41.9 % Monocytes (%) (Auto) 4.3 % Eosinophils (%) (Auto) 8.6 % Basophils (%) (Auto) 1.0 % Neutrophils # (Auto) 2.76 K/uL (1.4-6.5) Lymphocytes # (Auto) 2.62 K/uL (1.2-3.4) Monocytes # (Auto) 0.27 K/uL (0.11-0.59) Eosinophils # (Auto) 0.54 K/uL (0-0.5) Basophils # (Auto) 0.06 K/uL (0-0.2) RDW Standard Deviation 40.7 fL (36.4-46.3) RDW Coefficient of Variation 12.7 % (11.5-14.5) Immature Granulocyte % (Auto) 0.2 % Immature Granulocyte # (Auto) 0.01 K/uL (0.00-0.02) Prothrombin Time 10.1 SECONDS (9.0-12.0) Prothromb Time International Ratio 0.9 (0.9-1.1) Activated Partial Thromboplast Time 24.4 SECONDS (21.0-31.0) Partial Thromboplastin Ratio 0.9 Urine Color YELLOW Urine Appearance CLEAR (CLEAR) Urine pH 6.5 (4.5-7.5) Urine Specific [place] 1.024 (1.000-1.030) Urine Protein NEG (NEG) Urine Glucose (UA) 2+ (NEG) Urine Ketones NEG (NEG) Urine Occult Blood NEG (NEG) Urine Nitrite NEG (NEG) Urine Bilirubin NEG (NEG) Urine Urobilinogen NEG (NEG) Urine Leukocyte Esterase NEG (NEG) Urine WBC (Auto) 1-5 /hpf (0-5) Urine RBC (Auto) 0-4 /hpf (0-4) Urine Hyaline Casts (Auto) 0 /lpf (0-5) Urine Epithelial Cells (Auto) 5-10 /lpf (0-5) Urine Bacteria (Auto) NEG (NEG) Anion Gap 8.0 mmol/L (3-11) Est Creatinine Clear Calc Drug Dose 91.7 ml/min Estimated GFR () 75.2 Estimated GFR (Non- 64.9 BUN/Creatinine Ratio 22.3 (10-20) Calcium Level 8.6 mg/dl (8.5-10.1) Magnesium Level 2.0 mg/dl (1.8-2.4) Total Bilirubin 0.3 mg/dl (0.2-1) Direct Bilirubin < 0.1 mg/dl (0-0.2) Aspartate Amino Transf (AST/SGOT) 19 U/L (15-37) Alanine Aminotransferase (ALT/SGPT) 33 U/L (12-78) Alkaline Phosphatase 36 U/L (45-117) Total Creatine Kinase 266 U/L (39-308) Creatine Kinase MB 4.7 ng/ml (0.5-3.6) Creatine Kinase MB Ratio 1.8 (0-3.0) Troponin I < 0.015 ng/ml (0-0.045) Total Protein 6.8 gm/dl (6.4-8.2) Albumin 3.8 gm/dl (3.4-5.0) Lipase 216 U/L (73-393) Thyroid Stimulating Hormone (TSH) 2.150 uIu/ml (0.300-4.500) Laboratory results as stated above per my review. Medications Administered Medications (Trade) Dose Ordered Sig/Johny Route Start Time Stop Time Status Last Admin Dose Admin Sodium Chloride (Nss 1000ml) 1,000 ml @ 999 mls/hr Q1H1M STAT IV 07/20/16 12:52 07/20/16 13:52 DC 07/20/16 12:52 999 MLS/HR Prochlorperazine Edisylate (Compazine Inj) 10 mg NOW STAT IV 07/20/16 12:52 07/20/16 12:55 DC 07/20/16 12:52 10 MG ECG Indication: weakness Rate (beats per minute): 66 Rhythm: normal sinus Findings: no ectopy, other (no acute injury) ED Course 1248: Previous medical records were reviewed. The patient was evaluated in room B10. A complete history and physical examination was performed. 1252: Compazine Inj 10 mg IV, NSS 1000 ml @ 999 mls/hr IV. 1520: On reevaluation, the patient is resting comfortably. I discussed the results and findings with the patient. He verbalized agreement of the treatment plan. He was discharged home. Medical Decision Differential includes acute coronary syndrome, myocardial infarction, CVA, TIA, anemia, infection, pneumonia, UTI, pyelonephritis, poor nutrition, dehydration, electrolyte disturbance,hypoglycemia. . This is a 60-year-old male who presents to the ED with a chief complaint of generalized weakness, anxiety, syncope and a fall yesterday. The patient states that his psychiatrist is weaning him off of Klonopin and took him off his Restoril. He states that he is not sleeping well. The patient also reported having some diarrhea. His vital signs are normal. His physical exam was normal. An EKG shows normal sinus rhythm at a rate of 66. CBC is normal. BUN is 27, glucose is 274, urine did not show infection or ketones. Troponin was negative. TSH was normal. The patient was treated with IV fluids and IV Compazine. He was told the results of the test. He is felt to be stable for discharge and outpatient follow-up. Impression Primary Impression: Hyperglycemia Additional Impressions: Dehydration [place] Scribe Attestation The scribe's documentation has been prepared under my direction and personally reviewed by me in its entirety. I confirm that the note above accurately reflects all work, treatment, procedures, and medical decision making performed by me. Departure Information Dispostion Home / Self-Care Referrals Antonio Taveras M.D. (PCP) Patient Instructions My [facility] Additional Instructions Follow-up with your doctor for further care and evaluation in 1-2 days. Return to the emergency department for worsening or new symptoms or any concerns. You have been examined and treated today on an emergency basis only. This is not a substitute for, or an effort to provide, complete comprehensive medical care. It is impossible to recognize and treat all injuries or illnesses in a single emergency department visit. It is therefore important that you follow up closely with your doctor. Call as soon as possible for an appointment. Increase daily fluid intake. Talk to your doctor about your elevated blood sugar. Problem Qualifiers
[2016-07-20 15:41] VITALS: BP 132/89; PULSE 73; O2SAT 96
== END 2016-07-20 15:42 | disposition home or self-care (01) ==
LOC: C.EDB 12:38
DX: E11.65 Type 2 diabetes mellitus with hyperglycemia (principal); E86.0 Dehydration; R53.83 Other fatigue; F41.9 Anxiety disorder, unspecified; I10 Essential (primary) hypertension; E78.5 Hyperlipidemia, unspecified; F43.10 Post-traumatic stress disorder, unspecified; Z79.4 Long term (current) use of insulin; Z79.82 Long term (current) use of aspirin; Z79.899 Other long term (current) drug therapy; Z88.0 Allergy status to penicillin; Z88.5 Allergy status to narcotic agent; Z83.3 Family history of diabetes mellitus; Z83.79 Family history of other diseases of the digestive system; Z82.49 Family history of ischemic heart disease and other diseases of the circulatory system

== ENCOUNTER → 2016-07-31 | Outpatient (CLI) | payer OTHER, MEDICARE ==
[~2016-07-31] MED LIST changes: +ASCO500T16 PO; -BND25X PO; +CLON0.5T3 PO; -CLON1TAB3 PO; +DIPH25CA5 PO; +HYDR-3124 PO; -INSUINJ17 SC; -TEMA30CA4 PO; -VNTHFA/IN INH
[2016-07-31 13:10] LABS: HEMATOCRIT 46.7 % (42-52); MEAN CELL VOLUME 86.2 fL (80-100); MEAN CORPUSCULAR HEMOGLOBIN 29.3 pg (25-34); MEAN PLATELET VOLUME 10.6 fL (7.4-10.4); PLATELET COUNT 143 K/uL (130-400); RED BLOOD COUNT 5.42 M/uL (4.7-6.1); WHITE BLOOD COUNT 6.68 K/uL (4.8-10.8)
[2016-07-31 13:35] LABS: ESTIMATED AVERAGE GLUCOSE 200 mg/dl; HA1C FLAG Normal (Normal)
[2016-07-31 13:39] LABS: CALCIUM 9.8 mg/dl (8.5-10.1)
[2016-07-31 13:43] LABS: ALT/SGPT 34 U/L (12-78); AST/SGOT 22 U/L (15-37); BLOOD UREA NITROGEN 38 mg/dl (7-18); CARBON DIOXIDE 26 mmol/L (21-32); CHLORIDE 100 mmol/L (98-107); CHOLESTEROL 187 mg/dl (0-200); GLUCOSE 185 mg/dl (70-99); POTASSIUM 4.8 mmol/L (3.5-5.1); SODIUM 134 mmol/L (136-145); TRIGLYCERIDES 177 mg/dl (0-150); VERY LOW DENSITY LIPOPROT CALC 35 mg/dl
[2016-07-31 13:47] LABS: ALB/GLOB RATIO 1.3 (0.9-2); ALKALINE PHOSPHATASE 41 U/L (45-117); CHOLESTEROL/HDL RATIO 4.1; HDL CHOLESTEROL 46 mg/dl; LDL CHOLESTEROL CALCULATED 106 mg/dl
== END | disposition home or self-care (01) ==
LOC: C.LABMFLN 11:19
PROVIDERS: ATTEND Internal Medicine
DX: Z00.00 Encounter for general adult medical examination without abnormal findings (principal); Z11.59 Encounter for screening for other viral diseases; E78.5 Hyperlipidemia, unspecified; J44.9 Chronic obstructive pulmonary disease, unspecified; E11.42 Type 2 diabetes mellitus with diabetic polyneuropathy

== ENCOUNTER → 2016-10-27 | Outpatient (CLI) | payer OTHER, MEDICARE ==
[~2016-10-27] MED LIST changes: +BND25 PO; -DIPH25CA5 PO; +SINCALIDE INJ 2.5 MCG in SODIUM CHLORIDE 0.9% 100ML 100 ML IV ONE
--- NOTE | 2016-10-27 12:49 | DIAGNOSTIC IMAGING REPORT ---
NUCLEAR MEDICINE HEPATOBILIARY SCAN WITH GALLBLADDER EJECTION FRACTION CLINICAL HISTORY: Diarrhea. Abnormal findings on previous imaging study. COMPARISON: Right upper quadrant ultrasound June 29, 2016. TECHNIQUE: 5.5 mCi of technetium 99m Choletec IV was injected at 10:38 AM on October 27, 2016. Immediately following injection, imaging of the abdomen was carried out for 60 minutes in the anterior projection. At this time, 2.5 mcg of Sincalide was injected IV as per protocol. Imaging was performed for an additional 45 minutes to estimate a gallbladder ejection fraction. FINDINGS: Hepatic uptake of radiotracer is prompt and homogeneous. Activity is first identified within the common bile duct at 15 minutes. Gallbladder activity is first identified at 20 minutes. No small bowel activity was identified at 60 minutes. Small bowel activity was noted following injection of sincalide. Gallbladder emptying was normal with an ejection fraction of 95%. Normal is greater than 30-35%. IMPRESSION: 1. No evidence of acute cholecystitis. 2. Delayed visualization of small bowel activity, a nonspecific finding that can be seen in the setting of spasm, sphincter dysfunction or partial common bile duct obstruction. This could be correlated with liver function tests. 3. Normal gallbladder ejection fraction of 95%. Electronically signed by: Lm Quintanilla M.D. 10/27/2016 12:48 PM Dictated Date/Time: 10/27/2016 12:45 PM
== END | disposition home or self-care (01) ==
LOC: C.NUCL 10:03
PROVIDERS: ATTEND Internal Medicine
DX: K83.8 Other specified diseases of biliary tract (principal); R19.7 Diarrhea, unspecified; R93.8 Abnormal findings on diagnostic imaging of other specified body structures

== ENCOUNTER → 2016-12-16 | Outpatient (CLI) | payer OTHER, MEDICARE ==
[~2016-12-16] MED LIST changes: -SINCALIDE INJ 2.5 MCG in SODIUM CHLORIDE 0.9% 100ML 100 ML IV ONE
[2016-12-16 11:12] LABS: BLOOD UREA NITROGEN 28 mg/dl (7-18); BUN/CREATININE RATIO 21.7 (10-20); CALCIUM 9.6 mg/dl (8.5-10.1); CARBON DIOXIDE 26 mmol/L (21-32); CHLORIDE 102 mmol/L (98-107); GLUCOSE 253 mg/dl (70-99); POTASSIUM 4.7 mmol/L (3.5-5.1); SODIUM 136 mmol/L (136-145)
[2016-12-16 11:26] LABS: ESTIMATED AVERAGE GLUCOSE 237 mg/dl; HA1C FLAG Normal (Normal)
--- NOTE | 2016-12-16 13:50 | DIAGNOSTIC IMAGING REPORT ---
Nuclear gastric emptying study: CLINICAL HISTORY: GASTROPARESIS COMPARISON STUDY: CT of the abdomen and pelvis July 10, 2015. TECHNIQUE: Following the oral administration of 1.042 mCi of technetium 99m sulfur colloid in egg sandwich and 8 ounces of water, static abdominal images were obtained anteriorly and posteriorly at 0 minutes, 1 hour, 2 hour, and 4 hour time intervals. Gastric emptying was calculated utilizing the geometric mean method. FINDINGS: There is approximately 37% gastric activity remaining at the 1 hour time interval (normal is less than 90%), 12% at the 2 hour time interval (normal is less than 60%), and 0% remaining at the 4 hour time interval (normal is less than 10%). IMPRESSION: No evidence of delayed gastric emptying. Electronically signed by: Lm Quintanilla M.D. 12/16/2016 1:48 PM Dictated Date/Time: 12/16/2016 1:47 PM
== END | disposition home or self-care (01) ==
LOC: C.NUCL 09:09
PROVIDERS: ATTEND Surgery
DX: E11.42 Type 2 diabetes mellitus with diabetic polyneuropathy (principal); E11.43 Type 2 diabetes mellitus with diabetic autonomic (poly)neuropathy; K31.84 Gastroparesis; K83.8 Other specified diseases of biliary tract

== ENCOUNTER → 2017-06-28 | Outpatient (CLI) | payer OTHER, MEDICARE ==
[~2017-06-28] MED LIST changes: -BND25 PO; +DIPH25CA5 PO; +MELO-83 PO; -MELO15TA4 PO
[2017-06-28 13:38] LABS: ALT/SGPT 34 U/L (12-78); BLOOD UREA NITROGEN 32 mg/dl (7-18); CALCIUM 9.2 mg/dl (8.5-10.1); CARBON DIOXIDE 26 mmol/L (21-32); CHOLESTEROL 168 mg/dl (0-200); CREATININE 1.39 mg/dl (0.60-1.40); GLUCOSE 151 mg/dl (70-99); POTASSIUM 4.2 mmol/L (3.5-5.1); SODIUM 136 mmol/L (136-145)
[2017-06-28 13:49] LABS: LDL CHOLESTEROL (DIRECT) 98 mg/dl
== END | disposition home or self-care (01) ==
LOC: C.LABMFLN 08:43
PROVIDERS: ATTEND Family Medicine
DX: Z00.00 Encounter for general adult medical examination without abnormal findings (principal); E78.5 Hyperlipidemia, unspecified; E11.42 Type 2 diabetes mellitus with diabetic polyneuropathy; I10 Essential (primary) hypertension

== ENCOUNTER 2019-09-30 20:36 | Inpatient (IN) ==
[2019-09-30] MEDS ORDERED: SODIUM CHLORIDE 0.9% 500 ML IV ONE (21:17)
[2019-09-30] MEDS ORDERED: VANCOMYCIN HCL 2,500 MG in SODIUM CHLORIDE 0.9% 500 ML IV ONE (21:17)
[2019-09-30] MEDS ORDERED: VANCOMYCIN CONSULT ACTIVE PRN (21:17)
[2019-09-30] MEDS ORDERED: CEFEPIME 2,000 MG/20 ML VIAL IV STA (21:17)
[2019-09-30 21:55] LABS: Basophils # (auto) 0.07 K/uL (0-0.2); Basophils % (auto) 1.2 %; Eosinophils # (auto) 0.29 K/uL (0-0.5); Eosinophils % (auto) 5.1 %; Hematocrit (blood only) 41.4 % (42-52); Hemoglobin 13.3 g/dL (14.0-18.0); Immature Granulocytes # (auto) 0.01 K/uL (0.00-0.02); Immature Granulocytes % (auto) 0.2 %; Lymphocytes # (auto) 1.65 K/uL (1.2-3.4); Lymphocytes % (auto) 28.7 %; Mean Corpuscular Hemoglobin 28.2 pg (25-34); Mean Corpuscular Hgb Conc 32.1 g/dL (32-36); Mean Corpuscular Volume 87.7 fL (80-100); Mean Platelet Volume 10.2 fL (7.4-10.4); Monocytes # (auto) 0.44 K/uL (0.11-0.59); Monocytes % (auto) 7.7 %; Neutrophils # (auto) 3.28 K/uL (1.4-6.5); Neutrophils % (auto) 57.1 %; Platelet Count 138 K/uL (130-400); RDW Standard Deviation 45.3 fL (36.4-46.3); Red Blood Count 4.72 M/uL (4.7-6.1); White Blood Count 5.74 K/uL (4.8-10.8)
[2019-09-30 22:06] LABS: Partial Thromboplastin Ratio 0.9; Prothrombin Time 10.3 Seconds (9.0-12.0)
[2019-09-30 22:11] LABS: Albumin Level 3.8 gm/dl (3.4-5.0); BUN Creatinine Ratio 23.2 (10-20); Bilirubin Direct 0.1 mg/dl (0-0.2); Calcium 9.3 mg/dl (8.5-10.1); Creatinine Clr Calc Pharmacy 74.5 ml/min; Est GFR (African American) 62.2; Est GFR (Non-African American) 53.6; Magnesium 2.1 mg/dl (1.8-2.4); Potassium 4.6 mmol/L (3.5-5.1)
[2019-09-30 22:14] LABS: Bilirubin,Total 0.3 mg/dl (0.2-1); Globulin 3.7 gm/dl (2.5-4.0); Phosphorus 4.2 mg/dl (2.5-4.9); Total Protein 7.5 gm/dl (6.4-8.2)
--- NOTE | 2019-09-30 22:28 | Emergency Department Note ---
Impression & Plan PICC line infection, Fever, Generalized body aches, Pain in right upper arm ED Provider Note NAME: JEANETTE HATCH AGE: 63 SEX: M ARRIVES VIA: Walk-In INFORMANT: Patient, ED PROVIDER(S): Yamil Rush MD CHIEF COMPLAINT: Fever, possible PICC line infection PLAN: Disposition: Admit MEDICAL DECISION MAKING: The patient is a pleasant 63-year-old gentleman with a past medical history of IDDM 2, hypertension, hyperlipidemia with a recent history of a left foot diabetic foot infection/osteomyelitis status post amputation on 09/06 2019 on admission to [facility] followed by Dr. Lennon, podiatry and was discharged on IV ceftriaxone for 23 days, metronidazole for 23 days in addition to IV vancomycin presents emergency department with fevers that began yesterday in the setting of developing pain at the site of his PICC line with evolving redness over the past several days where he is concerned that he has a line infection. The patient reports his last day of IV antibiotics for his foot infection was planned to be tomorrow. Patient was admitted to [facility] and lives in the [place] area he says he will "never go back there" and that is why he presents here today. 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 Patient was hoping he would be able to come and have his PICC line removed and be discharged on oral antibiotics. However I did review with him the concerns that he developed fevers while on broad-spectrum IV antibiotics and still developed fevers and while removing his PICC line potentially may take care of an infectious source we certainly would want to ensure response to treatment before considering discharge. Ultimately was agreeable with being admitted. The patient denies any chest pain, shortness of breath, cough, congestion, nausea, vomiting, diarrhea, urinary symptoms. He reports he has had two negative COVID-19 tests in the past month. On arrival he is in no acute distress, afebrile with stable vital signs. He does have subtle erythema at the insertion site of his right upper extremity PICC line with mild tenderness to palpation proximally. There is no induration, fluctuance or crepitus. Left foot amputation and dorsal-lateral foot ~3cm ulceration site does have some odor to it with wet-to-dry dressing in place with no active purulent discharge. Patient reports his home nurse did see the wound and dressed it yesterday and was not concerned for any worsening. WBC and platelets within normal limits./H 13.3/41.4 similar to prior range of values. Chemistry without acidosis. Lactate within normal limits. Electrolytes and LFTs unremarkable. Xray of the left foot with no overt osseous destruction per my preliminary review. Given patient developed a fever on his current antibiotics he was ordered for cefepime in addition to vancomycin. Right upper extremity ultrasound ordered and pending. If no DVT will likely have IV team pull line. Will defer to admitting team. Case was discussed with ELO Pascal hospitalist, who will evaluate the patient for admission. Triage Nursing notes reviewed and agree them. Additional history obtained from [facility] Prior medical records reviewed Vital Signs: reviewed and remarkable for no significant abnormalities Differential diagnosis: Viral syndrome, otitis, pharyngitis, pneumonia, influenza, meningitis, urinary tract infection, sepsis, bacteremia, as well as other pathologies. ER treatment provided: See below. Diagnostics interpreted by me: ECG: Sinus rhythm with first-degree AV block, 68 bpm, no ectopy, no overt ST elevation or depression, QTC 404, QRS 94. Cardiac Monitoring: An order for continuous cardiac monitoring was placed and demonstrated NSR, 84 bpm, no ectopy. Laboratory studies: See below Imaging studies: XR left foot: no overt osseous destruction. Consultation(s): Case was discussed with ELO Pascal hospitalist, who will evaluate the patient for admission. HPI: The patient is a pleasant 63-year-old gentleman with a past medical history of IDDM 2, hypertension, hyperlipidemia with a recent history of a left foot diabetic foot infection/osteomyelitis status post amputation on 09/06 2019 on admission to [facility] followed by Dr. Lennon, podiatry and was discharged on IV ceftriaxone for 23 days, metronidazole for 23 days in addition to IV vancomycin presents emergency department with fevers that began yesterday in the setting of developing pain at the site of his PICC line with evolving redness over the past several days where he is concerned that he has a line infection. The patient reports his last day of IV antibiotics for his foot infection was planned to be tomorrow. Patient was admitted to [facility] and lives in the [place] area he says he will "never go back there" and that is why he presents here today. 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 Patient was hoping he would be able to come and have his PICC line removed and be discharged on oral antibiotics. However I did review with him the concerns that he developed fevers while on broad-spectrum IV antibiotics and still developed fevers and while removing his PICC line potentially may take care of an infectious source we certainly would want to ensure response to treatment before considering discharge. Ultimately was agreeable with being admitted. The patient denies any chest pain, shortness of breath, cough, congestion, nausea, vomiting, diarrhea, urinary symptoms. He reports he has had two negative COVID-19 tests in the past month. ROS: See above HPI for pertinent positives & negatives. A total of 10 systems reviewed and were otherwise negative. PAST MEDICAL HISTORY:See Below PAST SURGICAL HISTORY:See Below FAMILY HISTORY:See Below SOCIAL HISTORY:See Below HOME MEDICATIONS:See Below ALLERGIES:See Below VITALS:See Below PHYSICAL EXAMINATION: GENERAL: Awake, alert, well-appearing, in no distress HENT: Normocephalic, atraumatic. Oropharynx with dry mucous membranes and otherwise unremarkable. EYES: Normal conjunctiva. Sclera non-icteric. NECK: Supple. No nuchal rigidity. FROM. No JVD. RESPIRATORY: Clear to auscultation. CARDIAC: Regular rate, normal rhythm. Extremities warm and well perfused. Pulses equal. ABDOMEN: Soft, non-distended. No tenderness to palpation. No rebound or guarding. No masses. RECTAL: Deferred. MUSCULOSKELETAL: Chest examination reveals no tenderness. The back is symmetrical on inspection without obvious abnormality. There is no CVA tend erness to palpation. No joint edema. EXTREMITIES: Subtle erythema at the insertion site of his right upper extremity PICC line with mild tenderness to palpation proximally. There is no induration, fluctuance or crepitus. Calves are equal size bilaterally and non-tender. No edema. Left foot amputation and dorsal-lateral foot ~3cm ulceration site does have some odor to it with wet-to-dry dressing in place with no active purulent discharge. NEURO: Normal sensorium. No sensory or motor deficits noted. SKIN: No rash or jaundice noted. ED COURSE: Critical Care: I have personally spent greater than 35 minutes of critical care time in the direct management of this patient. This includes bedside care, interpretation of diagnostic studies, and testing, discussion with consultants, patient, and family members, and other required patient management activities. This 35 minutes is in excess of all separately billable procedures. Yamil Rush MD Past Med/Surg History Medical History Anxiety (Chronic) Asthma (Acute) COPD (chronic obstructive pulmonary disease) (Chronic) Depression (Acute) Diabetes (Chronic) Hyperlipidemia (Chronic) Hypertension (Chronic) Insomnia (Acute) Irritable bowel syndrome (IBS) (Acute) Lumbar radiculopathy (Acute) Macular degeneration (Acute) Obese (Acute) PTSD (post-traumatic stress disorder) (Chronic) Type 2 diabetes, uncontrolled, with neuropathy (Chronic) Surgical History History of amputation left 5th toe -09/06/19 at [facility] History of back surgery History of tonsillectomy Hx of tooth extraction Family History Mother , 57 Cancer Cervical cancer Esophageal cancer Father Myocardial infarction Colon cancer Sister , 53 AML (acute myelogenous leukemia) Stroke Scleroderma Sister Fibrocystic breast disease Sister Anxiety Anorexia nervosa Denies family history of Ovarian cancer Prostate cancer Breast cancer Social History Preferred Language: Macedonian Communication Ability: Effective Visual Impairment: No Limitations Hearing Ability: Normal [employer] Required: No Beliefs That Will Affect Care: None marital status: Current Living Situation: Spouse current occupational status: retired Feels Safe at Home: Yes Smoking Status: Former smoker Tobacco Type: cigarettes ; Age Started Using Tobacco: 26 ; Age Quit Using Tobacco: 37 ; Cigarettes Per Day: Social smoker 1 pk lasted 1 month ; Second Hand Exposure: No ; Hx Alcohol Use: No Hx Substance Use: No Childhood Exposure to Second-Hand Smoke: Yes Dental Care, Regularly: Yes Seatbelt Use: always Sunscreen Use: Yes Allergies Allergies Allergy/AdvReac Type Severity Reaction Status Date / Time codeine Allergy Unknown RASH, Verified 09/30/19 22:20 VOMITING Penicillins Allergy Unknown RASH Verified 09/30/19 22:20 amoxicillin [From Augmentin] Allergy Vomiting Verified 09/30/19 22:20 ciprofloxacin [From Cipro] Allergy Hives Verified 09/30/19 22:20 clavulanic acid Allergy Vomiting Verified 09/30/19 22:20 [From Augmentin] exenatide [From Bydureon] Allergy . Verified 09/30/19 22:20 Home Meds Home Medications Medication Instructions Recorded Confirmed ascorbic acid (vitamin C) 500 mg 500 mg PO BID cap 01/20/19 09/30/19 capsule clonazepam 1 mg tablet 1 mg PO TID #90 tab 01/20/19 09/30/19 [id number]-bdj-foytl acid 0.4 1 tab PO QAM 01/20/19 09/30/19 mg-lycopene 300 mcg-lutein 250 mcg tablet sertraline 100 mg tablet 100 mg PO HS 01/20/19 09/30/19 aspirin 325 mg tablet,delayed 325 mg PO DAILY tab 05/22/19 09/30/19 release acetaminophen [Tylenol Extra 1,000 mg PO Q8H PRN 09/15/19 09/30/19 Strength] temazepam 30 mg PO HS 09/30/19 09/30/19 Previous Rx's Medication Instructions Recorded celecoxib 200 mg capsule 200 mg PO DAILY #90 cap 10/03/19 cyclobenzaprine 5 mg tablet 5 mg PO TID PRN #90 tab 10/03/19 fenofibrate 160 mg tablet 160 mg PO HS #90 tab 10/03/19 gabapentin 800 mg tablet 800 mg PO TID #90 tab 10/03/19 insulin regular hum U-500 conc 100 unit SQ TIDM #6 ml 10/03/19 lisinopril 20 mg tablet 20 mg PO HS #90 tab 10/03/19 pravastatin 40 mg tablet 40 mg PO HS #90 tab 10/03/19 albuterol sulfate 2.5 mg INH Q8H PRN #180 ml 10/04/19 Results & Data (ED) Vital Signs Vital Signs - 24 hr 09/30/19 20:41 09/30/19 22:05 Temperature 36.9 C Temperature Source Oral Pulse Rate 84 Pulse Rhythm Regular Pulse Strength Normal Respiratory Rate 16 Respiratory Effort / Characteristics Non-Labored Respiratory Depth Normal Respiratory Pattern Regular Blood Pressure 123/74 Blood Pressure Mean 90 Blood Pressure Position Sitting Pulse Oximetry 98 97 Oxygen Delivery Method Room Air Room Air Sepsis Recent Fever Within 48 Hours No Sepsis Action Taken by Nursing No Action Required Laboratory Data Attestation: I reviewed the patient's lab results. Result diagrams: 10/02/19 09:22 10/02/19 09:22 Lab Results 09/30/19 09/30/19 09/30/19 Range/Units 21:42 21:42 21:42 WBC 5.74 (4.8-10.8) K/uL RBC 4.72 (4.7-6.1) M/uL Hgb 13.3 L (14.0-18.0) g/dL Hct 41.4 L (42-52) % MCV 87.7 (80-100) fL MCH 28.2 (25-34) pg MCHC 32.1 (32-36) g/dL RDW Std Deviation 45.3 (36.4-46.3) fL RDW Coeff of Ramos 14.0 (11.5-14.5) % Plt Count 138 (130-400) K/uL MPV 10.2 (7.4-10.4) fL Immature Gran % (Auto) 0.2 % Neut % (Auto) 57.1 % Lymph % (Auto) 28.7 % [place] % (Auto) 7.7 % Eos % (Auto) 5.1 % Baso % (Auto) 1.2 % Neut # (Auto) 3.28 (1.4-6.5) K/uL Lymph # (Auto) 1.65 (1.2-3.4) K/uL [place] # (Auto) 0.44 (0.11-0.59) K/uL Eos # (Auto) 0.29 (0-0.5) K/uL Baso # (Auto) 0.07 (0-0.2) K/uL Immature Gran # (Auto) 0.01 (0.00-0.02) K/uL PT 10.3 (9.0-12.0) Seconds INR 1.0 (0.9-1.1) APTT 25.0 (21.0-31.0) Seconds PTT Ratio 0.9 Sodium (136-145) mmol/L Potassium (3.5-5.1) mmol/L Chloride (98-107) mmol/L Carbon Dioxide (21-32) mmol/L Anion Gap (3-11) BUN (7-18) mg/dl Creatinine (0.6-1.4) mg/dl Est Cr Clr Drug Dosing ml/min Est GFR ( Amer) Est GFR (Non-Af Amer) BUN/Creatinine Ratio (10-20) Glucose (70-99) mg/dl Lactate (0.4-2.0) mmol/L Calcium (8.5-10.1) mg/dl Phosphorus (2.5-4.9) mg/dl Magnesium (1.8-2.4) mg/dl Total Bilirubin (0.2-1) mg/dl Direct Bilirubin (0-0.2) mg/dl AST (15-37) U/L ALT (12-78) U/L Alkaline Phosphatase (45-117) U/L Total Protein (6.4-8.2) gm/dl Albumin (3.4-5.0) gm/dl Globulin (2.5-4.0) gm/dl Albumin/Globulin Ratio (0.9-2) Procalcitonin < 0.05 (0-0.5) ng/ml 09/30/19 09/30/19 Range/Units 21:42 21:42 WBC (4.8-10.8) K/uL RBC (4.7-6.1) M/uL Hgb (14.0-18.0) g/dL Hct (42-52) % MCV (80-100) fL MCH (25-34) pg MCHC (32-36) g/dL RDW Std Deviation (36.4-46.3) fL RDW Coeff of Ramos (11.5-14.5) % Plt Count (130-400) K/uL MPV (7.4-10.4) fL Immature Gran % (Auto) % Neut % (Auto) % Lymph % (Auto) % [place] % (Auto) % Eos % (Auto) % Baso % (Auto) % Neut # (Auto) (1.4-6.5) K/uL Lymph # (Auto) (1.2-3.4) K/uL [place] # (Auto) (0.11-0.59) K/uL Eos # (Auto) (0-0.5) K/uL Baso # (Auto) (0-0.2) K/uL Immature Gran # (Auto) (0.00-0.02) K/uL PT (9.0-12.0) Seconds INR (0.9-1.1) APTT (21.0-31.0) Seconds PTT Ratio Sodium 137 (136-145) mmol/L Potassium 4.6 (3.5-5.1) mmol/L Chloride 108 H (98-107) mmol/L Carbon Dioxide 24 (21-32) mmol/L Anion Gap 5.0 (3-11) BUN 32 H (7-18) mg/dl Creatinine 1.38 (0.6-1.4) mg/dl Est Cr Clr Drug Dosing 74.5 ml/min Est GFR ( Amer) 62.2 Est GFR (Non-Af Amer) 53.6 BUN/Creatinine Ratio 23.2 H (10-20) Glucose 92 (70-99) mg/dl Lactate 0.8 (0.4-2.0) mmol/L Calcium 9.3 (8.5-10.1) mg/dl Phosphorus 4.2 (2.5-4.9) mg/dl Magnesium 2.1 (1.8-2.4) mg/dl Total Bilirubin 0.3 (0.2-1) mg/dl Direct Bilirubin 0.1 (0-0.2) mg/dl AST 18 (15-37) U/L ALT 35 (12-78) U/L Alkaline Phosphatase 47 (45-117) U/L Total Protein 7.5 (6.4-8.2) gm/dl Albumin 3.8 (3.4-5.0) gm/dl Globulin 3.7 (2.5-4.0) gm/dl Albumin/Globulin Ratio 1.0 (0.9-2) Procalcitonin (0-0.5) ng/ml Administered Medications Discontinued Medications Acetaminophen (Tylenol) 1,000 mg PO Q8H PRN PRN Reason: Pain Stop: 10/31/19 00:06 Last Admin: 10/02/19 13:19 Dose: 500 mg Documented by: [id number] Admin: 10/01/19 17:43 Dose: 1,000 mg Documented by: [id number] Admin: 10/01/19 09:11 Dose: 1,000 mg Documented by: [id number] Albuterol (Duoneb) 3 ml NEB BIDR KOLBY Stop: 10/31/19 18:59 Last Admin: 10/02/19 07:10 Dose: 3 ml Documented by: [id number] Admin: 10/01/19 19:25 Dose: 3 ml Documented by: [id number] Aspirin (Ecotrin) 325 mg PO DAILY [facility] Stop: 10/31/19 08:59 Last Admin: 10/02/19 09:51 Dose: 325 mg Documented by: [id number] Admin: 10/01/19 08:46 Dose: 325 mg Documented by: [id number] Celecoxib (Celebrex) 200 mg PO DAILY [facility] Stop: 10/31/19 08:59 Last Admin: 10/02/19 09:51 Dose: 200 mg Documented by: [id number] Admin: 10/01/19 08:46 Dose: 200 mg Documented by: [id number] Clonazepam (Klonopin) 1 mg PO TID [facility] Stop: 10/31/19 08:59 Last Admin: 10/02/19 13:19 Dose: 1 mg Documented by: [id number] Admin: 10/02/19 09:54 Dose: 1 mg Documented by: [id number] Admin: 10/01/19 22:05 Dose: 1 mg Documented by: [id number] Admin: 10/01/19 14:40 Dose: 1 mg Documented by: [id number] Admin: 10/01/19 09:11 Dose: 1 mg Documented by: [id number] Enoxaparin Sodium (Lovenox) 40 mg SQ QAM [facility] Stop: 10/31/19 08:59 Last Admin: 10/02/19 09:51 Dose: 40 mg Documented by: [id number] Admin: 10/01/19 08:46 Dose: 40 mg Documented by: [id number] Fenofibrate (Tricor) 145 mg PO HS [facility] Stop: 10/31/19 20:59 Last Admin: 10/01/19 22:07 Dose: 145 mg Documented by: [id number] Gabapentin (Neurontin) 800 mg PO TID [facility] Stop: 10/31/19 08:59 Last Admin: 10/02/19 13:21 Dose: Not Given Documented by: [id number] Admin: 10/02/19 09:45 Dose: Not Given Documented by: [id number] Admin: 10/01/19 22:06 Dose: 800 mg Documented by: [id number] Admin: 10/01/19 14:40 Dose: 800 mg Documented by: [id number] Admin: 10/01/19 08:46 Dose: 800 mg Documented by: [id number] Sodium Chloride (Nss) 500 mls @ 999 mls/hr IV .Q31M ONE Stop: 09/30/19 21:47 Last Infusion: 09/30/19 22:15 Dose: 0 mls/hr Documented by: [id number] Admin: 09/30/19 21:53 Dose: 999 mls/hr Documented by: [id number] Cefepime HCl (Maxipime) 2,000 mg in 20 mls @ 5 mls/min IV NOW STA; Protocol Stop: 09/30/19 21:20 Last Admin: 09/30/19 22:06 Dose: 5 mls/min Documented by: [id number] Vancomycin HCl 2,500 mg/ (Sodium Chloride) 550 mls @ 200 mls/hr IV NOW ONE Stop: 10/01/19 00:01 Last Infusion: 10/01/19 01:34 Dose: 0 mls/hr Documented by: [id number] Admin: 09/30/19 22:06 Dose: 200 mls/hr Documented by: [id number] Cefepime HCl 2,000 mg/ Syringe 20 mls @ 5.5 mls/min IV Q8H KOLBY; Protocol Stop: 10/08/19 05:59 Last Admin: 10/02/19 13:30 Dose: 5.5 mls/min Documented by: [id number] Admin: 10/02/19 06:22 Dose: 5.5 mls/min Documented by: [id number] Admin: 10/01/19 22:09 Dose: 5.5 mls/min Documented by: [id number] Admin: 10/01/19 14:40 Dose: 5.5 mls/min Documented by: [id number] Admin: 10/01/19 05:22 Dose: 5.5 mls/min Documented by: [id number] Sodium Chloride (Nss 1000ml) 1,000 mls @ 80 mls/hr IV .[id number] [facility] Stop: 10/01/19 12:36 Last Infusion: 10/01/19 13:17 Dose: 0 mls/hr Documented by: [id number] Admin: 10/01/19 00:37 Dose: 80 mls/hr Documented by: [id number] Vancomycin HCl 1,500 mg/ (Sodium Chloride) 530 mls @ 200 mls/hr IV Q12H KOLBY Stop: 10/08/19 09:59 Last Infusion: 10/02/19 01:27 Dose: 0 mls/hr Documented by: [id number] Admin: 10/01/19 22:09 Dose: 200 mls/hr Documented by: [id number] Infusion: 10/01/19 12:35 Dose: 0 mls/hr Documented by: [id number] Admin: 10/01/19 09:53 Dose: 200 mls/hr Documented by: [id number] Vancomycin HCl 1,250 mg/ (Sodium Chloride) 275 mls @ 125 mls/hr IV Q12H KOLBY Stop: 10/09/19 10:59 Last Infusion: 10/02/19 13:30 Dose: 0 mls/hr Documented by: [id number] Admin: 10/02/19 11:16 Dose: 125 mls/hr Documented by: [id number] Insulin Aspart (Novolog Flexpen) 0 units SC ACHS KOBLY Stop: 10/31/19 01:59 Last Admin: 10/02/19 13:20 Dose: 29 units Documented by: [id number] Cosigned by: [id number] Admin: 10/02/19 09:49 Dose: 18 units Documented by: [id number] Cosigned by: [id number] Admin: 10/01/19 22:06 Dose: 2 units Documented by: [id number] Cosigned by: [id number] Admin: 10/01/19 18:08 Dose: 21 units Documented by: [id number] Cosigned by: [id number] Admin: 10/01/19 12:56 Dose: 25 units Documented by: [id number] Cosigned by: [id number] Admin: 10/01/19 08:50 Dose: 9 units Documented by: [id number] Cosigned by: [id number] Admin: 10/01/19 02:28 Dose: Not Given Documented by: [id number] Cosigned by: [id number] Insulin Human NPH (Novolin N Nph) 32 units SC BIDM KOLBY Stop: 10/31/19 09:29 Last Admin: 10/01/19 09:48 Dose: 32 units Documented by: [id number] Cosigned by: [id number] Insulin Human NPH (Novolin N Nph) 0 units SC BIDM KOLBY; Protocol Stop: 10/31/19 16:59 Last Admin: 10/02/19 09:46 Dose: 35 units Documented by: [id number] Cosigned by: [id number] Admin: 10/01/19 18:09 Dose: 35 units Documented by: [id number] Cosigned by: [id number] Lisinopril (Zestril) 20 mg PO [facility] Stop: 10/31/19 20:59 Last Admin: 10/01/19 22:07 Dose: 20 mg Documented by: [id number] Pravastatin Sodium (Pravachol) 40 mg PO [facility] Stop: 10/31/19 20:59 Last Admin: 10/01/19 22:06 Dose: 40 mg Documented by: [id number] Sertraline HCl (Zoloft) 100 mg PO [facility] Stop: 10/31/19 20:59 Last Admin: 10/01/19 22:07 Dose: 100 mg Documented by: [id number] Temazepam (Restoril) 30 mg PO [facility] Stop: 10/31/19 20:59 Last Admin: 10/01/19 22:13 Dose: 30 mg Documented by: [id number] Temazepam (Restoril) 30 mg PO TODAY@0045 [facility] Stop: 10/01/19 00:46 Last Admin: 10/01/19 00:38 Dose: 30 mg Documented by: [id number] Blood Pressure Blood Pressure Findings: Normal blood pressure Discharge Plan Visit Data *Final* Discharge Date/Time: 10/01/19 00:33 Chief Complaint: Infection Stated Complaint: INFECTED PICC LINE ED Provider: Yamil Rush Discharge Problem: PICC line infection, Fever, Generalized body aches, Pain in right upper arm Patient Disposition: Admitted As Inpatient Discharge Problem: PICC line infection Qualifiers: Encounter type: initial encounter Qualified Code(s): T80.219A - Unspecified infection due to central venous catheter, initial encounter Fever Qualifiers: Fever type: unspecified Qualified Code(s): R50.9 - Fever, unspecified
--- NOTE | 2019-09-30 23:44 | History & Physical Report ---
Date of Service September 30, 2019 Assessment & Plan (1) PICC line infection: Suspected infection of RUE PICC line. Patient reports some discomfort in the forearm as well as redness, swelling and possible drainage at the insertion site. PICC line placed earlier this month for purpose of long-term antibiotics after left 5th digit amputation for gangrene. He has been on Vancomycin/Ceftriaxone/Flagyl, today is day . He reports the PICC line has never been able to draw but he has had no issues with medication infusion. Denies fevers/chills/rigors or pain during infusion. -Remove PICC line, culture tip -Continue IV antibiotics - will administer Vancomycin and Cefepime -Follow blood cultures sent from ER Present on Admission?: Yes (2) Diabetic infection of left foot: Per patient this is improving. He has been receiving home wound care through [facility]. Now on daily NSS wet to dry dressings. -Wound care consultation appreciated -Antibiotics as above -Tylenol and Celebrex PRN pain Present on Admission?: Yes (3) Type 2 diabetes, uncontrolled, with neuropathy: Patient with poorly controlled Type II DM, last HgbA1C on 06/19/19 was 11.1. He is on high dose insulin, U-500, 100u TID with meals. He reports decent blood sugar control over the last two weeks - AM fasting sugars of 91- 138. He reports compliance with an 1800 calorie/day diet and does not eat after 18:00. He admits to gaining quite a bit of weight (34#) over the last few months largely due to being at home for Covid isolation but states he has lost approximately 13# of that weight so far and is motivated to continue to lose weight. -CC diet as tolerated -Glycemic management consultation to assist with management of U-500 management, daily insulin requirements -Continue daily aspirin 325mg po daily -Continue Gabapentin 800mg po TID -Continue Lisinopril 20mg po qHS Present on Admission?: Yes (4) Depression: Chronic. -Continue Sertraline 100mg po qHS Present on Admission?: Yes (5) COPD (chronic obstructive pulmonary disease): Chronic. Well controlled at present. Patient denies cough/SOB or wheeze. Pulmonary exam is unremarkable. Adequate oxygenation on room air -Albuterol PRN Present on Admission?: Yes (6) Hyperlipidemia: Chronic -Continue Fenofibrate 160mg po qHS -Continue Pravastatin 40mg po qHS Present on Admission?: Yes (7) Hypertension: Blood pressure stable at present, well controlled -Continue Lisinopril 20mg po qHS -Continue to monitor Present on Admission?: Yes (8) Diarrhea: Patient reports one day of increased, watery diarrhea. He thinks possibly secondary to antibiotic use. He has been on IV antibiotics for 22 days. Diarrhea possibly secondary to underlying infection -Check C. diff -IVF and electrolyte repletion as needed -If persistent will consider additional workup F/E/N - NSS at 80mL/hr, monitor electrolytes, CC/Heart healthy diet as tolerated Ppx - Lovenox Code - Full per discussion with patient Disp - Admit to medical floor, anticipate > 2 midnight stay for IV antibiotics Present on Admission?: Yes Admission and Anticipated Discharge Date Admission Date: 09/30/19 Anticipated date of discharge: 10/02/19 History of Present Illness Chief Complaint: concern for PICC line infection Primary Care Provider: Guilherme Isaac MD Lorri Villa is a pleasant 63yo C male with history of poorly controlled IDDM with peripheral neuropathy on high dose insulin, HTN, HLP, COPD. Patient sustained a trauma to the LLE while moving furniture which resulted in necrosis/gangrene of his left 5th digit. He had amputation of 5th metatarsal performed on 09/06/19 at [facility] in [place]. He had a PICC line placed during that hospitalization and has been receiving Ceftriaxone/Vancomycin and Flagyl, today is day 22 of 23 day course. Two days ago he began feeling some pain in his right forearm. Yesterday he felt febrile, sweaty and fatigued. Also with elevated fasting blood sugars this AM (reports AM sugars have been 91-138, however, AM sugar today 228), elevated temperature today to 100.2 for which he took Tylenol. Also noted some redness, swelling and possible drainage at the PICC site today. Patient afebrile, hemodynamically stable in ER. ER Course: Cefepime, NSS, Vancomycin Allergies Allergy/AdvReac Type Severity Reaction Status Date / Time codeine Allergy Unknown RASH, Verified 09/30/19 22:20 VOMITING Penicillins Allergy Unknown RASH Verified 09/30/19 22:20 amoxicillin [From Augmentin] Allergy Vomiting Verified 09/30/19 22:20 ciprofloxacin [From Cipro] Allergy Hives Verified 09/30/19 22:20 clavulanic acid Allergy Vomiting Verified 09/30/19 22:20 [From Augmentin] exenatide [From Bydureon] Allergy . Verified 09/30/19 22:20 Home Medications Home Medications Medication Instructions Recorded Confirmed Type fenofibrate 160 mg PO HS 09/06/18 09/30/19 History pravastatin [Pravachol] 40 mg PO HS 09/06/18 09/30/19 History ascorbic acid (vitamin C) 500 mg 500 mg PO BID cap 01/20/19 09/30/19 History capsule clonazepam 1 mg tablet 1 mg PO TID #90 tab 01/20/19 09/30/19 History udadcdlk-pno-cgiht acid 0.4 1 tab PO QAM 01/20/19 09/30/19 History mg-lycopene 300 mcg-lutein 250 mcg tablet sertraline 100 mg tablet 100 mg PO HS 01/20/19 09/30/19 History aspirin 325 mg tablet,delayed 325 mg PO DAILY tab 05/22/19 09/30/19 History release acetaminophen [Tylenol Extra 1,000 mg PO Q8H PRN 09/15/19 09/30/19 History Strength] ceftriaxone in dextrose,iso-os 0 g IV DAILY 09/15/19 09/30/19 History gabapentin [Neurontin] 800 mg PO TID 09/15/19 09/30/19 History insulin regular hum U-500 conc 100 unit SQ TIDM 09/15/19 09/30/19 History [Humulin R U-500 (Conc) Kwikpen] lisinopril [Zestril] 20 mg PO HS 09/15/19 09/30/19 History metronidazole [Flagyl] 500 mg PO TID 09/15/19 09/30/19 History vancomycin in 0.9 % sodium chl 1.25 g IV TID 09/15/19 09/30/19 History albuterol sulfate 2.5 mg INH Q8H PRN 09/30/19 09/30/19 History celecoxib 200 mg PO DAILY 09/30/19 09/30/19 History cyclobenzaprine 5 mg PO TID PRN 09/30/19 09/30/19 History temazepam 30 mg PO HS 09/30/19 09/30/19 History Past Med/Surg History Medical History (Updated 09/30/19 @ 23:41 by Melina Perera DO) Anxiety (Chronic) Asthma (Acute) COPD (chronic obstructive pulmonary disease) (Chronic) Depression (Acute) Diabetes (Chronic) Hyperlipidemia (Chronic) Hypertension (Chronic) Insomnia (Acute) Irritable bowel syndrome (IBS) (Acute) Lumbar radiculopathy (Acute) Macular degeneration (Acute) Obese (Acute) PTSD (post-traumatic stress disorder) (Chronic) Type 2 diabetes, uncontrolled, with neuropathy (Chronic) Surgical History (Updated 09/30/19 @ 23:21 by Melina Perera DO) History of amputation left 5th toe -09/06/19 at [facility] History of back surgery History of tonsillectomy Hx of tooth extraction Family History Mother , 57 Cancer Cervical cancer Esophageal cancer Father Myocardial infarction Colon cancer Sister , 53 AML (acute myelogenous leukemia) Stroke Scleroderma Sister Fibrocystic breast disease Sister Anxiety Anorexia nervosa Denies family history of Ovarian cancer Prostate cancer Breast cancer Social History (Updated 09/18/19 @ 14:01 by Krystle Oropeza MA) Preferred Language: Hebrew Communication Ability: Effective Visual Impairment: No Limitations Hearing Ability: Normal 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 marital status: Current Living Situation: Spouse current occupational status: retired Feels Safe at Home: Yes Smoking Status: Former smoker Age Started Using Tobacco: 26 ; Age Quit Using Tobacco: 37 ; Cigarettes Per Day: Social smoker 1 pk lasted 1 month ; Second Hand Exposure: No ; Hx Alcohol Use: No Hx Substance Use: No Childhood Exposure to Second-Hand Smoke: Yes Dental Care, Regularly: Yes Seatbelt Use: always Sunscreen Use: Yes Review of Systems Review of Systems: All systems reviewed & are unremarkable except as noted in HPI & below Patient specifically denies headache, visual change, chest pain, cough, shortness of breath, abdominal pain, nausea, vomiting and dysuria He reports significant diarrhea over the last 1-2 days, up to 12 times/day of watery BM, no blood or mucus Physical Exam Physical Exam: General: patient resting comfortably, NAD, non-toxic in appearance, AA&O x 4 Skin: warm, dry, intact, redness at PICC site with tenderness to palpation HEENT: NC/AT, PERRL, EOMI, anicteric sclera, conjunctiva without injection, external ear normal to inspection and nontender, nares patent, slightly dry mucus membranes, dentition intact, no oropharyngeal lesions, neck supple, trachea midline, no LAD, no thyromegaly, no JVD Heart: +S1/S2, regular, no m/r/g Lungs: equal air entry bilaterally, no rales/rhonchi/wheezes Abd: +BS, soft, NT/ND, no masses/organomegaly/ascites Ext: warm, weakly palpable distal pulses in feet, LUE PICC line in place, dressing c/d/i, mild erythema/edema at site, no lymphangitic streaking, no edema of LUE or tenderness of arm, RLE with dressing in place, no bleeding/drainage noted Neuro: nonfocal, patient AA&O x 4, speech intact, no facial droop, moving all extremities on command with equal strength 5/5 Results & Data Results & Data ([facility]) Vital Signs (Past 12 Hours) Vital Signs Temp Pulse Resp BP Pulse Ox 09/30/19 22:05 97 09/30/19 20:41 36.9 C 84 16 123/74 98 Laboratory Results Lab Results 09/30/19 09/30/19 09/30/19 Range/Units 21:42 21:42 21:42 WBC 5.74 (4.8-10.8) K/uL RBC 4.72 (4.7-6.1) M/uL Hgb 13.3 L (14.0-18.0) g/dL Hct 41.4 L (42-52) % MCV 87.7 (80-100) fL MCH 28.2 (25-34) pg MCHC 32.1 (32-36) g/dL RDW Std Deviation 45.3 (36.4-46.3) fL RDW Coeff of Ramos 14.0 (11.5-14.5) % Plt Count 138 (130-400) K/uL MPV 10.2 (7.4-10.4) fL Immature Gran % (Auto) 0.2 % Neut % (Auto) 57.1 % Lymph % (Auto) 28.7 % Hickman % (Auto) 7.7 % Eos % (Auto) 5.1 % Baso % (Auto) 1.2 % Neut # (Auto) 3.28 (1.4-6.5) K/uL Lymph # (Auto) 1.65 (1.2-3.4) K/uL Hickman # (Auto) 0.44 (0.11-0.59) K/uL Eos # (Auto) 0.29 (0-0.5) K/uL Baso # (Auto) 0.07 (0-0.2) K/uL Immature Gran # (Auto) 0.01 (0.00-0.02) K/uL PT 10.3 (9.0-12.0) Seconds INR 1.0 (0.9-1.1) APTT 25.0 (21.0-31.0) Seconds PTT Ratio 0.9 Sodium (136-145) mmol/L Potassium (3.5-5.1) mmol/L Chloride (98-107) mmol/L Carbon Dioxide (21-32) mmol/L Anion Gap (3-11) BUN (7-18) mg/dl Creatinine (0.6-1.4) mg/dl Est Cr Clr Drug Dosing ml/min Est GFR ( Amer) Est GFR (Non-Af Amer) BUN/Creatinine Ratio (10-20) Glucose (70-99) mg/dl Lactate (0.4-2.0) mmol/L Calcium (8.5-10.1) mg/dl Phosphorus (2.5-4.9) mg/dl Magnesium (1.8-2.4) mg/dl Total Bilirubin (0.2-1) mg/dl Direct Bilirubin (0-0.2) mg/dl AST (15-37) U/L ALT (12-78) U/L Alkaline Phosphatase (45-117) U/L Total Protein (6.4-8.2) gm/dl Albumin (3.4-5.0) gm/dl Globulin (2.5-4.0) gm/dl Albumin/Globulin Ratio (0.9-2) Procalcitonin < 0.05 (0-0.5) ng/ml 09/30/19 09/30/19 Range/Units 21:42 21:42 WBC (4.8-10.8) K/uL RBC (4.7-6.1) M/uL Hgb (14.0-18.0) g/dL Hct (42-52) % MCV (80-100) fL MCH (25-34) pg MCHC (32-36) g/dL RDW Std Deviation (36.4-46.3) fL RDW Coeff of Ramos (11.5-14.5) % Plt Count (130-400) K/uL MPV (7.4-10.4) fL Immature Gran % (Auto) % Neut % (Auto) % Lymph % (Auto) % Hickman % (Auto) % Eos % (Auto) % Baso % (Auto) % Neut # (Auto) (1.4-6.5) K/uL Lymph # (Auto) (1.2-3.4) K/uL Hickman # (Auto) (0.11-0.59) K/uL Eos # (Auto) (0-0.5) K/uL Baso # (Auto) (0-0.2) K/uL Immature Gran # (Auto) (0.00-0.02) K/uL PT (9.0-12.0) Seconds INR (0.9-1.1) APTT (21.0-31.0) Seconds PTT Ratio Sodium 137 (136-145) mmol/L Potassium 4.6 (3.5-5.1) mmol/L Chloride 108 H (98-107) mmol/L Carbon Dioxide 24 (21-32) mmol/L Anion Gap 5.0 (3-11) BUN 32 H (7-18) mg/dl Creatinine 1.38 (0.6-1.4) mg/dl Est Cr Clr Drug Dosing 74.5 ml/min Est GFR ( Amer) 62.2 Est GFR (Non-Af Amer) 53.6 BUN/Creatinine Ratio 23.2 H (10-20) Glucose 92 (70-99) mg/dl Lactate 0.8 (0.4-2.0) mmol/L Calcium 9.3 (8.5-10.1) mg/dl Phosphorus 4.2 (2.5-4.9) mg/dl Magnesium 2.1 (1.8-2.4) mg/dl Total Bilirubin 0.3 (0.2-1) mg/dl Direct Bilirubin 0.1 (0-0.2) mg/dl AST 18 (15-37) U/L ALT 35 (12-78) U/L Alkaline Phosphatase 47 (45-117) U/L Total Protein 7.5 (6.4-8.2) gm/dl Albumin 3.8 (3.4-5.0) gm/dl Globulin 3.7 (2.5-4.0) gm/dl Albumin/Globulin Ratio 1.0 (0.9-2) Procalcitonin (0-0.5) ng/ml Diagnostic Findings X-ray left foot - by my interpretation: surgical absence of right 5th digit, some mild soft tissue edema, does not appear to show soft tissue gas or evidence of osteomyelitis. Awaiting formal read ECG Additional Comments: The study shows SR at 68bpm with first degree AV block - MB=023, QRS=94, UAz=669, no acute ischemic changes Code Status & VTE Plan Code Status Full Code VTE Prophylaxis Plan VTE Prophylaxis will be ordered: Yes PG Care Time/CCT Total # of Minutes Spent Total Time Spent with Patient: Total time spent is greater than 50% in coordination of care (as documented) at patient's floor/unit and/or counseling patient: Coding Level of Care Code 03065 Initial Inpt Care Lvl 3 Diagnoses PICC line infection T80.219A Encounter type: initial encounter Diabetic infection of left foot E11.628; L08.9 Type 2 diabetes, uncontrolled, with neuropathy E11.40; E11.65 Depression F32.9 Depression Type: major depressive disorder Major depression recurrence: unspecified whether recurrent Active/Remission status: remission status unspecified COPD (chronic obstructive pulmonary disease) J44.9 COPD type: unspecified COPD Hyperlipidemia E78.5 Hyperlipidemia type: unspecified Hypertension I10 Hypertension type: essential hypertension Diarrhea R19.7 Diarrhea type: unspecified type (1) PICC line infection Encounter type: initial encounter Qualified Code(s): T80.219A - Unspecified infection due to central venous catheter, initial encounter (2) Depression Depression Type: major depressive disorder Major depression recurrence: unspecified whether recurrent Active/Remission status: remission status unspecified Qualified Code(s): F32.9 - Major depressive disorder, single episode, unspecified (3) COPD (chronic obstructive pulmonary disease) COPD type: unspecified COPD Qualified Code(s): J44.9 - Chronic obstructive pulmonary disease, unspecified (4) Hyperlipidemia Hyperlipidemia type: unspecified Qualified Code(s): E78.5 - Hyperlipidemia, unspecified (5) Hypertension Hypertension type: essential hypertension Qualified Code(s): I10 - Essential (primary) hypertension (6) Diarrhea Diarrhea type: unspecified type Qualified Code(s): R19.7 - Diarrhea, unspecified
[2019-10-01] MEDS ORDERED: GLUCOSE 40% GEL 15 GM TUBE PO PRN (00:07)
[2019-10-01] MEDS ORDERED: SODIUM CHLORIDE 0.9% 1000ML 1,000 ML IV SCH (00:07)
[2019-10-01] MEDS ORDERED: VANCOMYCIN HCL 1,000 MG in SODIUM CHLORIDE 0.9% 250 ML IV SCH (00:07)
[2019-10-01] MEDS ORDERED: ALBUTEROL 0.083% NEBU SOLN 3 ML VIAL INH PRN (00:07)
[2019-10-01] MEDS ORDERED: GLUCOSE 10 TABS/TUBE PO PRN (00:07)
[2019-10-01] MEDS ORDERED: CARBOHYDRATES FOR HYPOGLYCEMIA PO PRN (00:07)
[2019-10-01] MEDS ORDERED: VANCOMYCIN CONSULT ACTIVE PRN (00:07)
[2019-10-01] MEDS ORDERED: GLUCAGON FOR INJ 1 MG VIAL SQ PRN (00:07)
[2019-10-01] MEDS ORDERED: CYCLOBENZAPRINE HCL 5 MG TAB PO PRN (00:07)
[2019-10-01] MEDS ORDERED: DEXTROSE 50% 50 ML SYRINGE IV PRN (00:07)
[2019-10-01] MEDS ORDERED: PHARMACY GLYCEMIC MGMT CONSULT PRN (00:20)
[2019-10-01] MEDS ORDERED: TEMAZEPAM 15 MG CAPSULE PO SCH ×2 (00:45→21:00)
[2019-10-01 00:53] LABS: Appearance Urine Clear (Clear); Bilirubin Urine Negative (Negative); Blood Urine Negative (Negative); Color Urine Yellow; Glucose Urine UA Negative (Negative); Ketones Urine Negative (Negative); Leukocyte Esterase Urine Negative (Negative); Nitrite Urine Negative (Negative); Protein Urine Negative (Negative); Specific Gravity Urine 1.013 (1.000-1.030); Urobilinogen Urine Negative (Negative)
[2019-10-01] MEDS: INSULIN ASPART 100 UNITS/ML 3 ML PEN SC SCH ×5 (02:28→22:06)
[2019-10-01] MEDS: CEFEPIME 2,000 MG in SYRINGE 7.5 ML IV SCH ×3 (05:22→22:09)
--- NOTE | 2019-10-01 06:29 | XRay Report ---
XR chest 1V portable CLINICAL HISTORY: SEPSIS dyspnea COMPARISON STUDY: 09/06/2017 FINDINGS: PICC catheter positions. Vena cava. Lungs remain clear. Diaphragms are smooth. IMPRESSION: PICC catheter in the superior vena cava. No evidence for pneumothorax. ACT 112: Negative or not required by law. The above report was generated using voice recognition software. It may contain grammatical, syntax or spelling errors. Electronically signed by: Emeterio Lo M.D. 10/01/2019 6:27 AM
--- NOTE | 2019-10-01 06:30 | XRay Report ---
XR foot LT 2V CLINICAL HISTORY: fever, ?Picc line infection, left foot osteo. Infection. Osteomyelitis. COMPARISON: None. DISCUSSION: Prior amputation of the phalanges of the fifth toe. Moderate soft tissue edematous change seen throughout as well as dorsal to the metatarsals. No lytic or blastic process. Soft tissue vascular calcification. Heel spur. There is no evidence for soft tissue swelling. IMPRESSION: Soft tissue edema. Post operative change as described. No acute bony abnormality. ACT 112: Negative or not required by law. The above report was generated using voice recognition software. It may contain grammatical, syntax or spelling errors. Electronically signed by: Emeterio Lo M.D. 10/01/2019 6:29 AM
--- NOTE | 2019-10-01 06:38 | Ultrasound Report ---
US venous doppler UE RT HISTORY: PICC line infection redness pain in Picc line COMPARISON STUDY: None. FINDINGS: The internal jugular vein is patent. There is normal flow within the subclavian vein. There is normal flow and compressibility within the left axillary, basilic, brachial, radial, ulnar, and v isualized cephalic veins. IMPRESSION: No DVT within the upper extremity. ACT 112: Negative or not required by law. The above report was generated using voice recognition software. It may contain grammatical, syntax or spelling errors. Electronically signed by: Emeterio Lo M.D. 10/01/2019 6:36 AM
[2019-10-01] MEDS: ASPIRIN 325 MG ECTAB PO SCH (08:46)
[2019-10-01] MEDS: GABAPENTIN 800 MG TAB PO SCH ×3 (08:46→22:06)
[2019-10-01] MEDS: ENOXAPARIN INJ 40 MG/0.4 ML SYR SQ SCH (08:46)
[2019-10-01] MEDS: CeleBREX 200 MG CAP PO SCH (08:46)
[2019-10-01] MEDS: clonazePAM 1 MG TAB PO SCH ×3 (09:11→22:05)
[2019-10-01] MEDS: ACETAMINOPHEN 500 MG TAB PO PRN ×2 (09:11→17:43)
[2019-10-01] MEDS ORDERED: INSULIN HUMAN NPH SC SCH (09:30)
[2019-10-01] MEDS: VANCOMYCIN HCL 1,500 MG in SODIUM CHLORIDE 0.9% 500 ML IV SCH ×2 (09:53→22:09)
--- NOTE | 2019-10-01 10:40 | Hospitalist Progress Note ---
Date of Service October 01, 2019 Assessment & Plan (1) PICC line infection: Suspected infection of RUE PICC line. Patient reports some discomfort in the forearm as well as redness, swelling and possible drainage at the insertion site. PICC line placed earlier this month for purpose of long-term antibiotics after left 5th digit amputation for gangrene. He has been on Vancomycin/Ceftriaxone/Flagyl, today is day . He reports the PICC line has never been able to draw but he has had no issues with medication infusion. Denies fevers/chills/rigors or pain during infusion. -Removed PICC line, culture tip pending -Continue IV antibiotics - will administer Vancomycin and Cefepime -Follow blood cultures sent from ER (2) Diabetic infection of left foot: Per patient this is improving and today would have been his last day of antibiotics. He has been receiving home wound care through [facility]. Now on daily NSS wet to dry dressings. -Wound care consultation appreciated -Antibiotics as above -Tylenol and Celebrex PRN pain - No bone involvement on Xray (3) Type 2 diabetes, uncontrolled, with neuropathy: Patient with poorly controlled Type II DM, last HgbA1C on 06/19/19 was 11.1. He is on high dose insulin, U-500, 100u TID with meals. He reports decent blood sugar control over the last two weeks - AM fasting sugars of 91- 138. He reports compliance with an 1800 calorie/day diet and does not eat after 18:00. He admits to gaining quite a bit of weight (34#) over the last few months largely due to being at home for Covid isolation but states he has lost approximately 13# of that weight so far and is motivated to continue to lose weight. -CC diet as tolerated -Glycemic management consultation to assist with management of U-500 management, daily insulin requirements -Continue daily aspirin 325mg po daily -Continue Gabapentin 800mg po TID -Continue Lisinopril 20mg po qHS (4) Depression: Chronic. -Continue Sertraline 100mg po qHS (5) COPD (chronic obstructive pulmonary disease): Chronic. Well controlled at present. Patient denies cough/SOB or wheeze. Pulmonary exam is unremarkable. Adequate oxygenation on room air -Duonebs bid as patient reports this is what he takes at home (6) Hyperlipidemia: Chronic -Continue Fenofibrate 160mg po qHS -Continue Pravastatin 40mg po qHS (7) Hypertension: Blood pressure stable at present, well controlled -Continue Lisinopril 20mg po qHS -Continue to monitor (8) Diarrhea: Patient reports one day of increased, watery diarrhea. He thinks possibly secondary to antibiotic use. He has been on IV antibiotics for 22 days. Diarrhea possibly secondary to underlying infection -Check C. diff -IVF and electrolyte repletion as needed -If persistent will consider additional workup F/E/N - NSS at 80mL/hr, monitor electrolytes, CC/Heart healthy diet as tolerated Ppx - Lovenox Code - Full per discussion with patient Disp - Admit to medical floor, anticipate > 2 midnight stay for IV antibiotics Admission and Anticipated Discharge Date Admission Date: September 30, 2019 Subjective Mr. Villa is feeling better after having his PICC line pulled. He is having diarrhea, no blood or melena. ROS Constitutional: no chills, aches, sweats or fever Respiratory: no sob,cough, sputum, or wheezing Cardiac: no chest pain, palpitations, edema, orthopnea or lightheadedness GI: see HPI : no dysuria or hesitancy Extremities: no joint pain or weakness Skin: no rash All other systems reviewed and negative Physical Exam Physical Exam: General: no distress Eyes: normal inspection, PERLL Respiratory: chest non tender, clear to auscultation, normal breath sounds, no respiratory distress, no accessory muscle use Cardiac: regular rate and rhythm, no rub or gallop, no murmur, no edema, no jvd GI/: active bowel sounds, no abd pain or tenderness, soft, non distended Extremities: normal range of motion, normal strength, non tender Neuro/Psych: alert and oriented x 3, normal mood and affect Skin: normal color, dry Results & Data Results & Data ([facility]) Vital Signs (Past 12 Hours) Vital Signs Temp Pulse Pulse Resp BP Pulse Ox 10/01/19 06:58 36.8 C 72 20 123/65 97 10/01/19 00:00 36.5 C 69 20 146/82 H 99 09/30/19 23:47 76 18 118/68 96 PG Care Time/CCT Total # of Minutes Spent Total Time Spent with Patient: Total time spent is greater than 50% in coordinat ion of care (as documented) at patient's floor/unit and/or counseling patient: Coding Level of Care Code 25552 Subseq Hosp Care Lvl 3 Diagnoses PICC line infection T80.219A Encounter type: initial encounter Diabetic infection of left foot E11.628; L08.9 Type 2 diabetes, uncontrolled, with neuropathy E11.40; E11.65 Depression F32.9 Depression Type: major depressive disorder Major depression recurrence: unspecified whether recurrent Active/Remission status: remission status unspecified COPD (chronic obstructive pulmonary disease) J44.9 COPD type: unspecified COPD Hyperlipidemia E78.5 Hyperlipidemia type: unspecified Hypertension I10 Hypertension type: essential hypertension Diarrhea R19.7 Diarrhea type: unspecified type (1) PICC line infection Encounter type: initial encounter Qualified Code(s): T80.219A - Unspecified infection due to central venous catheter, initial encounter (2) Depression Depression Type: major depressive disorder Major depression recurrence: unspecified whether recurrent Active/Remission status: remission status unspecified Qualified Code(s): F32.9 - Major depressive disorder, single episode, unspecified (3) COPD (chronic obstructive pulmonary disease) COPD type: unspecified COPD Qualified Code(s): J44.9 - Chronic obstructive pulmonary disease, unspecified (4) Hyperlipidemia Hyperlipidemia type: unspecified Qualified Code(s): E78.5 - Hyperlipidemia, unspecified (5) Hypertension Hypertension type: essential hypertension Qualified Code(s): I10 - Essential (primary) hypertension (6) Diarrhea Diarrhea type: unspecified type Qualified Code(s): R19.7 - Diarrhea, unspecified
--- NOTE | 2019-10-01 11:48 | Pharmacy Report ---
Pharmacy Glycemic Short Note 2 - Date of Service October 01, 2019 - Glycemic Short BSG Results (Last 24 hours): 09/30/19 10/01/19 10/01/19 21:42 01:50 08:20 Glucose 92 POC Glucose 128 H 157 H OUTPATIENT ANTIDIABETIC REGIMEN: * Concentrated U-500 Regular insulin 100 units SQ TIDM * A1c = 11.1% on 06/19/19 * A1c pending for 10/01/19 ASSESSMENT: * 63yo T2DM male with severe insulin resistance - patient is maintained on concentrated U500 Regular insulin; high doses (100 units SQ TIDM) * Pt reports improvement in BSGs with diet - will confirm with A1c * Typically, patients require ~ 50% or less of outpatient U500 insulin dosing while inpatient due to controlled CHO diabetic diet in house. * Will start with NPH + NovoLog dosing and switch to U500 if large doses are warranted. * U500 insulin kinetics match that of NPH best; therefore will utilize NPH in house over Lantus * Will start with aggressive weight based insulin dosing and titrate based on BSG trends. PLAN FOR INPATIENT GLYCEMIC CONTROL: * Hold outpatient U500 * Basal insulin * NPH 32 units SQ BIDM * Bolus insulin * NovoLog per scale ACHS or Q6hrs while NPO * Goal Range: Low 110 mg/dL - High 140 mg/dL * Correction Factor: 15 mg/dL/unit * Nutritional / Prandial insulin per carb ratio of 1 unit per 4 grams CHO consumed
--- NOTE | 2019-10-01 12:27 | Electrocardiogram Report ---
Test Reason : Blood Pressure : / mmHG Vent. Rate : 068 BPM Atrial Rate : 068 BPM P-R Int : 216 ms QRS Dur : 094 ms QT Int : 380 ms P-R-T Axes : 059 -09 006 degrees QTc Int : 404 ms Sinus rhythm with 1st degree A-V block Otherwise normal ECG When compared with ECG of 20-JUL-2016 13:12, No significant change was found Confirmed by Ludwig Jones ([id number]) on 10/01/2019 12:26:51 PM Referred By: REFERRED SELF Confirmed By:Emery Jones
--- NOTE | 2019-10-01 15:16 | Pharmacy Report ---
Pharmacy Abx Initial Consult - Date of Service October 01, 2019 - Pharmacy Dosing Scope Date of Consult: 09/30/19 Consultation requested by: Dr. Perera Pharmacy is consulted to initiate Vancomycin IV dosing therapy, order appropriate labs and adjust drug dose/frequency. - Subjective The patient is a 63 year old M admitted on 09/30/19 23:08. - Objective Height: 6 ft Weight: 126.5 kg Vital Signs (Past 12hrs): Vital Signs Temp Pulse Resp BP Pulse Ox 10/01/19 06:58 36.8 C 72 20 123/65 97 Lab Results (24hrs): Laboratory Tests (24 Hours) 09/30/19 09/30/19 09/30/19 21:42 21:42 21:42 WBC 5.74 Neut # (Auto) 3.28 Creatinine 1.38 Est Cr Clr Drug Dosing 74.5 Procalcitonin < 0.05 Micro Results: 10/01/19 00:40 Catheter Tip Culture - Pending Catheter Tip, Picc 09/30/19 21:42 Aerobic Blood Culture - Pending Blood Anaerobic Blood Culture - Pending 09/30/19 21:42 Aerobic Blood Culture - Pending Blood Anaerobic Blood Culture - Pending - Risk Factors for Resistance * Antimicrobial use within the last 90 days: has been on flagyl, rocephin and Vanc for the last 22 days following toe amputation - Assessment & Plan Assessment 63 year old M presenting with fever and pain and redness at site of his PICC line. Has been receiving antibiotics the last 22 days post amputation. Last day of antibiotics was supposed to be today. Blood cultures x2 and catheter tip culture pending. Patient also started on Cefepime 2gram IV q8h Plan Vancomycin for treatment of suspected PICC line infection Vancomycin IV * Estimated PK Parameters: Vd 0.61 L/kg, Carlos 0.066 hr-1, t1/2 10 hr * Loading dose: 2500 mg (19.7 mg/kg) * Maintenance dose: 1500 mg IV ( 11.8mg/kg) every12 hours * Goal trough level for Infected PICC line: 15 to 20 mcg/mL * Trough level ordered for 10/02/19 at 0930 * Patient is expected to accumulate due to elevated BMI * A less than traditional dose has been selected due to likelihood of drug a ccumulation in obese patient Pharmacy will continue to follow and will adjust dose/frequency as necessary. Thank you.
[2019-10-01] MEDS: INSULIN HUMAN NPH SC SCH (18:09)
[2019-10-01] MEDS: ALBUT/IPRATROP 3MG/0.5MG NEB 3 ML VIAL NEB SCH (19:25)
[2019-10-01] MEDS ORDERED: FENOFIBRATE NANOCRYSTALLIZED 145 MG TABLET PO SCH (21:00)
[2019-10-01] MEDS ORDERED: PRAVASTATIN SOD 40 MG TAB PO SCH (21:00)
[2019-10-01] MEDS ORDERED: SERTRALINE HCL 100 MG TABLET PO SCH (21:00)
[2019-10-01] MEDS ORDERED: lisinopriL 20 MG TAB PO SCH (21:00)
[2019-10-02] MEDS: CEFEPIME 2,000 MG in SYRINGE 7.5 ML IV SCH ×2 (06:22→13:30)
[2019-10-02] MEDS: ALBUT/IPRATROP 3MG/0.5MG NEB 3 ML VIAL NEB SCH (07:10)
[2019-10-02 07:22] LABS: Estimated Average Glucose 258 mg/dl; Hemoglobin A1C 10.6 % (4.5-5.6)
[2019-10-02] MEDS ORDERED: VANCOMYCIN TROUGH ONE (09:30)
[2019-10-02 09:45] LABS: Basophils # (auto) 0.04 K/uL (0-0.2); Basophils % (auto) 0.8 %; Eosinophils # (auto) 0.19 K/uL (0-0.5); Eosinophils % (auto) 3.8 %; Hemoglobin 12.7 g/dL (14.0-18.0); Immature Granulocytes # (auto) 0.01 K/uL (0.00-0.02); Immature Granulocytes % (auto) 0.2 %; Lymphocytes # (auto) 1.45 K/uL (1.2-3.4); Lymphocytes % (auto) 29.2 %; Mean Corpuscular Hemoglobin 27.9 pg (25-34); Mean Corpuscular Hgb Conc 31.8 g/dL (32-36); Mean Corpuscular Volume 87.7 fL (80-100); Mean Platelet Volume 9.8 fL (7.4-10.4); Neutrophils # (auto) 2.88 K/uL (1.4-6.5); Platelet Count 115 K/uL (130-400); RDW Coefficient of Variation 14.3 % (11.5-14.5); RDW Standard Deviation 45.8 fL (36.4-46.3); Red Blood Count 4.56 M/uL (4.7-6.1); White Blood Count 4.97 K/uL (4.8-10.8)
[2019-10-02] MEDS: GABAPENTIN 800 MG TAB PO SCH ×2 (09:45→13:21)
[2019-10-02] MEDS: INSULIN HUMAN NPH SC SCH (09:46)
[2019-10-02] MEDS: INSULIN ASPART 100 UNITS/ML 3 ML PEN SC SCH ×2 (09:49→13:20)
[2019-10-02] MEDS: ENOXAPARIN INJ 40 MG/0.4 ML SYR SQ SCH (09:51)
[2019-10-02] MEDS: CeleBREX 200 MG CAP PO SCH (09:51)
[2019-10-02] MEDS: ASPIRIN 325 MG ECTAB PO SCH (09:51)
[2019-10-02] MEDS: clonazePAM 1 MG TAB PO SCH ×2 (09:54→13:19)
[2019-10-02 10:08] LABS: BUN Creatinine Ratio 16.3 (10-20); Calcium 8.8 mg/dl (8.5-10.1); Creatinine Clr Calc Pharmacy 93.2 ml/min; Est GFR (African American) 81.8; Est GFR (Non-African American) 70.6
--- NOTE | 2019-10-02 10:58 | Pharmacy Report ---
Pharmacy Abx Dose Short Note - Date of Service October 02, 2019 - Assessment & Plan Assessment 63 year old M presenting with fever and pain and redness at site of his PICC line. Had been receiving antibiotics outpatient s/p post amputation. Blood cultures and catheter tip cultures no growth. Plan Vancomycin * Trough level came back at ~20 mcg/ml (goal 15-20 mcg/ml) * Dose decreased to 1250 mg iv q 12 hrs to maintain trough 15-20 mcg/ml - patient with elevated BMI therefore increased risk of accumulation with vancomycin * Per discussion with provider - likely will finish out antibiotics today and discharge thereafter Pharmacy will continue to follow and will adjust dose/frequency as necessary. Thank you.
[2019-10-02] MEDS ORDERED: VANCOMYCIN HCL 1,250 MG in SODIUM CHLORIDE 0.9% 250 ML IV SCH (11:00)
[2019-10-02] MEDS: ACETAMINOPHEN 500 MG TAB PO PRN (13:19)
--- NOTE | 2019-10-02 22:11 | Discharge Summary ---
Date of Service October 02, 2019 Admission HPI Per Admitting Provider Lorri Villa is a pleasant 63yo C male with history of poorly controlled IDDM with peripheral neuropathy on high dose insulin, HTN, HLP, COPD. Patient sustained a trauma to the LLE while moving furniture which resulted in necrosis/gangrene of his left 5th digit. He had amputation of 5th metatarsal performed on 09/06/19 at [facility] in [place]. He had a PICC line placed during that hospitalization and has been receiving Ceftriaxone/Vancomycin and Flagyl, today is day 22 of 23 day course. Two days ago he began feeling some pain in his right forearm. Yesterday he felt febrile, sweaty and fatigued. Also with elevated fasting blood sugars this AM (reports AM sugars have been 91-138, however, AM sugar today 228), elevated temperature today to 100.2 for which he took Tylenol. Also noted some redness, swelling and possible drainage at the PICC site today. Patient afebrile, hemodynamically stable in ER. ER Course: Cefepime, NSS, Vancomycin Principal Diagnosis PICC Line infection Discharge Exam General: no distress Eyes: normal inspection, PERLL Respiratory: chest non tender, clear to auscultation, normal breath sounds, no respiratory distress, no accessory muscle use Cardiac: regular rate and rhythm, no rub or gallop, no murmur, no edema, no jvd GI/: active bowel sounds, no abd pain or tenderness, soft, non distended Extremities: normal range of motion, normal strength, non tender Neuro/Psych: alert and oriented x 3, normal mood and affect Skin: normal color, dry Discharge Data Allergies Allergy/AdvReac Type Severity Reaction Status Date / Time codeine Allergy Unknown RASH, Verified 09/30/19 22:20 VOMITING Penicillins Allergy Unknown RASH Verified 09/30/19 22:20 amoxicillin [From Augmentin] Allergy Vomiting Verified 09/30/19 22:20 ciprofloxacin [From Cipro] Allergy Hives Verified 09/30/19 22:20 clavulanic acid Allergy Vomiting Verified 09/30/19 22:20 [From Augmentin] exenatide [From Bydureon] Allergy . Verified 09/30/19 22:20 Consultations 09/30/19 22:30 ED Decision to Admit Stat Ordered Studies 09/30/19 22:17 US venous doppler UE RT Urgent Hospital Course (1) PICC line infection: Suspected infection of RUE PICC line. Patient reports some discomfort in the forearm as well as redness, swelling and possible drainage at the insertion site. PICC line placed earlier this month for purpose of long-term antibiotics after left 5th digit amputation for gangrene. He has been on Vancomycin/Ceftriaxone/Flagyl, today is day . He reports the PICC line has never been able to draw but he has had no issues with medication infusion. Denies fevers/chills/rigors or pain during infusion. -Removed PICC line, culture tip pending -Continue IV antibiotics - will administer Vancomycin and Cefepime -Follow blood cultures sent from ER You were asymptomatic and completed 48 hours of antibiotics after cath was removed. Will discharge patient. Will hold further antibiotics. (2) Diabetic infection of left foot: Per patient this is improving and today would have been his last day of antibiotics. He has been receiving home wound care through [facility]. Now on daily NSS wet to dry dressings. -Wound care consultation appreciated -Antibiotics as above -Tylenol and Celebrex PRN pain - No bone involvement on Xray (3) Type 2 diabetes, uncontrolled, with neuropathy: Patient with poorly controlled Type II DM, last HgbA1C on 06/19/19 was 11.1. He is on high dose insulin, U-500, 100u TID with meals. He reports decent blood sugar control over the last two weeks - AM fasting sugars of 91- 138. He reports compliance with an 1800 calorie/day diet and does not eat after 18:00. He admits to gaining quite a bit of weight (34#) over the last few months largely due to being at home for Covid isolation but states he has lost approximately 13# of that weight so far and is motivated to continue to lose weight. -CC diet as tolerated -Glycemic management consultation to assist with management of U-500 management, daily insulin requirements -Continue daily aspirin 325mg po daily -Continue Gabapentin 800mg po TID -Continue Lisinopril 20mg po qHS (4) Depression: Chronic. -Continue Sertraline 100mg po qHS (5) COPD (chronic obstructive pulmonary disease): Chronic. Well controlled at present. Patient denies cough/SOB or wheeze. Pulmonary exam is unremarkable. Adequate oxygenation on room air -Duonebs bid as patient reports this is what he takes at home (6) Hyperlipidemia: Chronic -Continue Fenofibrate 160mg po qHS -Continue Pravastatin 40mg po qHS (7) Hypertension: Blood pressure stable at present, well controlled -Continue Lisinopril 20mg po qHS -Continue to monitor (8) Diarrhea: Patient reports one day of increased, watery diarrhea. He thinks possibly secondary to antibiotic use. He has been on IV antibiotics for 22 days. Diarrhea possibly secondary to underlying infection -Check C. diff -IVF and electrolyte repletion as needed -If persistent will consider additional workup F/E/N - NSS at 80mL/hr, monitor electrolytes, CC/Heart healthy diet as tolerated Ppx - Lovenox Code - Full per discussion with patient Total Time Total Time Spent Total Time Spent (In Minutes): 32 Total Time Includes: Examination of the Patient, Discharge Planning and Medication Reconciliation Discharge Plan Discharge Items Patient Disposition: Home - Home Health Services Reason For Visit: SUSPECTED PICC LINE INFECTION Discharge Diagnosis: suspected PICC line infection Activity: Resume your previous activity Non-emergency contact: Primary Care Provider Call non-emergency contact if: you have any medication questions Follow-up/Referrals: Guilherme Isaac MD [Primary Care Provider] - 10/06/19 9:15 am Diet: Carb Consistent or DM2 and Heart Healthy Addtl Attending Provider Instructions: you complete your antibiotics and had 48 hours of antibiotics after cath was removed. As your symptoms have improved, it is ok for you to be discharged. will have you follow up with your PCP in about 1 week. Pending Studies at Discharge: No Stand-Alone Forms: My [facility] Digital Perception, Smoking Cessation Medications and DC Order Prescriptions: Continued clonazepam [Klonopin] 1 mg tablet 1 mg PO TID Qty: 90 RF: 0 ascorbic acid (vitamin C) 500 mg capsule 500 mg PO BID RF: 0 Centrum Silver 0.4-300-250 mg-mcg-mcg tablet 1 tab PO QAM RF: 0 sertraline [Zoloft] 100 mg tablet 100 mg PO HS RF: 0 aspirin 325 mg tablet,delayed release (DR/EC) 325 mg PO DAILY RF: 0 acetaminophen [Tylenol Extra Strength] 500 mg Tablet 1,000 mg PO Q8H PRN (Reason: Pain) RF: 0 temazepam 15 mg capsule 30 mg PO HS RF: 0 Discontinued metronidazole [Flagyl] 500 mg Tablet 500 mg PO TID RF: 0 ceftriaxone in dextrose,iso-os 1 gram/50 mL Piggyback 0 g IV DAILY RF: 0 vancomycin in 0.9 % sodium chl 1.25 gram/250 mL Solution 1.25 g IV TID RF: 0 No Action celecoxib 200 mg capsule 200 mg PO DAILY Qty: 90 RF: 1 cyclobenzaprine 5 mg tablet 5 mg PO TID PRN (Reason: Muscle Spasm) Qty: 90 RF: 1 fenofibrate 160 mg tablet 160 mg PO HS Qty: 90 RF: 3 gabapentin [Neurontin] 800 mg tablet 800 mg PO TID Qty: 90 RF: 3 Humulin R U-500 (Conc) Kwikpen 500 unit/mL (3 mL) insulin pen 100 unit SQ TIDM Qty: 6 RF: 11 lisinopril [Zestril] 20 mg tablet 20 mg PO HS Qty: 90 RF: 3 pravastatin [Pravachol] 40 mg tablet 40 mg PO HS Qty: 90 RF: 3 albuterol sulfate 2.5 mg /3 mL (0.083 %) solution for nebulization 2.5 mg INH Q8H PRN (Reason: Bronchospasm J 45.437) Qty: 180 RF: 3 Discharge Orders: Discharge Order (Routine); Ordered 10/02/19 Ordered By: Christian Ling/Other Patient Handouts: Long-Term Complications of Diabetes, What Is Peripheral Neuropathy, Wound Care Dc, Diabetic Neuropathy Admission Data Admit Date/Time: 09/30/19 23:08 Attending Provider: Christian Myers Admit Provider: Melina Perera Primary Care Provider: Guilherme Isaac Other Providers: Romero Merino ; [place] Other Interventions: Discharge Summary Assessment (RN) Last Done: 10/02/19 17:13 DC Date/Time DO NOT enter until pt leaves facility: 10/02/19 17:43 Coding Level of Care Code D/C Day Management >30 mins Diagnoses PICC line infection T80.219A Encounter type: initial encounter Diabetic infection of left foot E11.628; L08.9 Type 2 diabetes, uncontrolled, with neuropathy E11.40; E11.65 Depression F32.9 Active/Remission status: remission status unspecified Depression Type: major depressive disorder Major depression recurrence: unspecified whether recurrent COPD (chronic obstructive pulmonary disease) J44.9 COPD type: unspecified COPD Hyperlipidemia E78.5 Hyperlipidemia type: unspecified Hypertension I10 Hypertension type: essential hypertension Diarrhea R19.7 Diarrhea type: unspecified type Time Spent (min) 32
== END 2019-10-02 17:43 | disposition home health service (06) | DRG 316 ==
LOC: ED 20:36 → SUATTDRO 23:08 → 3N 23:08

== ENCOUNTER 2019-10-10 15:20 | Inpatient (IN) ==
[2019-10-10] MEDS ORDERED: VANCOMYCIN HCL 2,500 MG in SODIUM CHLORIDE 0.9% 500 ML IV ONE (16:00)
[2019-10-10] MEDS ORDERED: SODIUM CHLORIDE 0.9% 1000ML 1,000 ML IV SCH (16:00)
[2019-10-10] MEDS ORDERED: cefTRIAXone SODIUM 1,000 MG/50 ML BAG IV STA (16:00)
[2019-10-10] MEDS ORDERED: VANCOMYCIN CONSULT ACTIVE PRN (16:00)
--- NOTE | 2019-10-10 16:18 | Emergency Department Note ---
Impression & Plan Acute osteomyelitis of left foot, Cellulitis of foot, left, Acute hyperglycemia ED Provider Note NAME: JEANETTE HATCH AGE: 64 SEX: M : 1955 ARRIVES VIA: Walk-In INFORMANT: Patient, ED PROVIDER(S): Antonio Urena DO CHIEF COMPLAINT: Left foot pain HPI: The patient is a 64-year-old male who presented to the emergency department for an evaluation of left foot pain. The patient has been noticing left foot pain and swelling. He was recently treated by a slag skimmer for a left foot infection. He states that a few weeks ago he dropped a piece of furniture on the top of his left foot. He suffered an injury with a wound which was not healing. Ultimately he was treated with amputation of the left fifth digit. He states the wound itself appears to be healing well. He did note at the base of the left fifth toe where the amputation was done there is a small area which is darkened. He states there is also an ulceration on the top of his left foot. He states these wounds appear to be healing well however he is noticing swelling and redness of his left foot. He denies having any nausea or vomiting. He denies having any fevers or chills. He denies having any calf pain. He was seen by his infectious disease doctor today and was sent to the emergency department for further evaluation. He was treated with IV antibiotics as an inpatient but recently decided to leave his inpatient status the day before his birthday and was not started on oral antibiotics. The patient states that he did have outpatient antibiotics called in by the infectious disease specialist but he came to the emergency department because he thinks he might need inpatient antibiotics. ROS: See above HPI for pertinent positives & negatives. A total of 10 systems reviewed and were otherwise negative. PAST MEDICAL HISTORY: See Below PAST SURGICAL HISTORY: See Below FAMILY HISTORY: See Below SOCIAL HISTORY: See Below HOME MEDICATIONS: See Below ALLERGIES: See Below VITALS: See Below PHYSICAL EXAMINATION: GENERAL: Patient is awake alert in no acute distress patient is resting comfortably and showing no signs of anxiety EYES: The conjunctivae are clear. The pupils are round and reactive. EARS, NOSE, MOUTH AND THROAT: The nose is without any evidence of any deformity. Mucous membranes are moist. NECK: The neck is nontender and supple. RESPIRATORY: Normal respiratory effort is noted there is no evidence of wheezing rhonchi or rales CARDIOVASCULAR: Regular rate and rhythm noted there no murmurs rubs or gallops normal S1 normal S2. GASTROINTESTINAL: The abdomen is soft. Abdomen is nontender. MUSCULOSKELETAL/EXTREMITIES: There is no evidence of gross deformity full range of motion is noted in the hips and shoulders. SKIN: There is symmetric swelling of the left foot. There is erythema noted on the dorsum of left foot. Pulses are symmetric in both feet. There is no calf tenderness. There is an ulceration on the dorsum of the left foot. This appears to go through the entire soft tissue. There is granulation tissue noted. There is also a postoperative site at the base of where the left fifth digit was previous. There is no lymphangitic streaking up the left foot. NEUROLOGIC: Patient is awake alert and oriented x3. MEDICAL DECISION MAKING: The patient is a 64-year-old male who has a history of diabetes who presented to the emergency department for an evaluation of left foot pain. The patient has been having ongoing foot pain ever since he had an injury to his left foot some weeks ago. He presents tonight at the request of his infectious disease follow- up for possible infection. Cultures were obtained. The patient was treated with IV pain medication and IV fluids. He was also treated with IV insulin. The patient was also treated with IV antibiotics. I discussed the patient's laboratory and radiographic studies with him. MRI appears to be consistent with early osteomyelitis as well as significant cellulitis of the left foot. Given these findings I discussed his case with the on-call [facility] hospitalist. They have agreed to evaluate the patient in the emergency department for further management and disposition. Triage Nursing notes reviewed. Prior medical records reviewed Vital Signs: reviewed and remarkable for no significant abnormalities Differential diagnosis: Cellulitis, abscess, MRSA infection, DVT, necrotizing fasciitis, dermatitis, drug eruption, allergic reaction, as well as other pathologies. ER treatment provided: See below Diagnostics interpreted by me: ECG: none Cardiac Monitoring: An order was placed for continuous cardiac monitoring. The monitor shows a rate of 88 with sinus rhythm. Laboratory studies: As stated above and show below. Imaging studies: See below Consultation(s): [id number]: I discussed this case with Dr. Brunson. He is agreed to evaluate the patient in the emergency department for further management and disposition Past Med/Surg History Medical History Anxiety (Chronic) Asthma (Acute) COPD (chronic obstructive pulmonary disease) (Chronic) Depression (Acute) Diabetes (Chronic) Hyperlipidemia (Chronic) Hypertension (Chronic) Insomnia (Acute) Irritable bowel syndrome (IBS) (Acute) Lumbar radiculopathy (Acute) Macular degeneration (Acute) Obese (Acute) PTSD (post-traumatic stress disorder) (Chronic) Type 2 diabetes, uncontrolled, with neuropathy (Chronic) Surgical History History of amputation left 5th toe -09/06/19 at [facility] History of back surgery History of tonsillectomy Hx of tooth extraction Family History Mother , 57 Cancer Cervical cancer Esophageal cancer Father Myocardial infarction Colon cancer Sister , 53 AML (acute myelogenous leukemia) Stroke Scleroderma Sister Fibrocystic breast disease Sister Anxiety Anorexia nervosa Denies family history of Ovarian cancer Prostate cancer Breast cancer Social History Preferred Language: Arabic Communication Ability: Effective Visual Impairment: No Limitations Hearing Ability: Normal Medical Representative Required: No Beliefs That Will Affect Care: None marital status: Current Living Situation: Spouse current occupational status: retired Feels Safe at Home: Yes Smoking Status: Current some day smoker Tobacco Type: cigarettes ; Age Started Using Tobacco: 26 ; Age Quit Using Tobacco: 37 ; Cigarettes Per Day: Social smoker 1 pk lasted 1 month ; Second Hand Exposure: No ; Hx Alcohol Use: No Hx Substance Use: No Childhood Exposure to Second-Hand Smoke: Yes Dental Care, Regularly: Yes Seatbelt Use: always Sunscreen Use: Yes Allergies Allergies Allergy/AdvReac Type Severity Reaction Status Date / Time codeine Allergy Unknown RASH, Verified 10/10/19 16:14 VOMITING Penicillins Allergy Unknown RASH Verified 10/10/19 16:14 amoxicillin [From Augmentin] Allergy Vomiting Verified 10/10/19 16:14 ciprofloxacin [From Cipro] Allergy Hives Verified 10/10/19 16:14 clavulanic acid Allergy Vomiting Verified 10/10/19 16:14 [From Augmentin] exenatide [From Bydureon] Allergy . Verified 10/10/19 16:14 Home Meds Home Medications Medication Instructions Recorded Confirmed ascorbic acid (vitamin C) 500 mg 500 mg PO BID cap 01/20/19 10/10/19 capsule clonazepam 1 mg tablet 1 mg PO TID #90 tab 01/20/19 10/10/19 [id number] acid 0.4 1 tab PO QAM 01/20/19 10/10/19 mg-lycopene 300 mcg-lutein 250 mcg tablet sertraline 100 mg tablet 100 mg PO HS 01/20/19 10/10/19 aspirin 325 mg tablet,delayed 325 mg PO DAILY tab 05/22/19 10/10/19 release acetaminophen [Tylenol Extra 1,000 mg PO Q8H PRN 09/15/19 10/10/19 Strength] temazepam 30 mg PO HS 09/30/19 10/10/19 Previous Rx's Medication Instructions Recorded celecoxib 200 mg capsule 200 mg PO DAILY #90 cap 10/03/19 cyclobenzaprine 5 mg tablet 5 mg PO TID PRN #90 tab 10/03/19 fenofibrate 160 mg tablet 160 mg PO HS #90 tab 10/03/19 gabapentin 800 mg tablet 800 mg PO TID #90 tab 10/03/19 insulin regular hum U-500 conc 100 unit SQ TIDM #6 ml 10/03/19 lisinopril 20 mg tablet 20 mg PO HS #90 tab 10/03/19 pravastatin 40 mg tablet 40 mg PO HS #90 tab 10/03/19 albuterol sulfate 2.5 mg INH Q8H PRN #180 ml 10/04/19 azelastine 137 mcg (0.1 %) nasal 2 sprays INTNAS BID #30 ml 10/09/19 spray aerosol chlorpheniramine maleate 4 mg 4 mg PO Q12H PRN #60 tab 10/09/19 tablet dulaglutide 0.75 mg/0.5 mL 0.75 mg SQ WEEKLY #2 ml 10/09/19 subcutaneous pen injector Results & Data (ED) Vital Signs Vital Signs - 24 hr 10/10/19 15:29 10/10/19 17:20 10/10/19 17:33 Temperature 36.6 C Temperature Source Oral Pulse Rate 87 81 Pulse Rate [Right] 82 Pulse Rate from SpO2 Sensor 81 Pulse Rhythm [Right] Regular Pulse Strength [Right] Normal Respiratory Rate 19 18 14 Respiratory Effort / Characteristics Non-Labored Spontaneous Respiratory Depth Normal Respiratory Pattern Regular Blood Pressure 129/76 114/77 Blood Pressure [Right Arm] 114/77 Blood Pressure Mean 93 86 Blood Pressure Mean [Right Arm] 89 Blood Pressure Position [Right Arm] Sitting Pulse Oximetry 98 97 97 Oxygen Delivery Method Room Air Sepsis Recent Fever Within 48 Hours No Sepsis New/Unexplained Change in Mental Status No Sepsis Action Taken by Nursing No Action Required 10/10/19 17:35 10/10/19 18:07 10/10/19 20:44 Temperature Temperature Source Pulse Rate 82 78 Pulse Rate [Right] 80 Pulse Rate from SpO2 Sensor 82 Pulse Rhythm [Right] Regular Pulse Strength [Right] Normal Respiratory Rate 17 17 Respiratory Effort / Characteristics Non-Labored Spontaneous Gasping/Agonal Respiratory Depth Normal Respiratory Pattern Blood Pressure Blood Pressure [Right Arm] 134/81 Blood Pressure Mean Blood Pressure Mean [Right Arm] 98 Blood Pressure Position [Right Arm] Sitting Pulse Oximetry 95 98 Oxygen Delivery Method Room Air Sepsis Recent Fever Within 48 Hours Sepsis New/Unexplained Change in Mental Status Sepsis Action Taken by [facility] Medications Current Medication List: was personally reviewed by me Laboratory Data Attestation: I reviewed the patient's lab results. Result diagrams: 10/10/19 17:06 10/10/19 17:06 Lab Results 10/10/19 10/10/19 10/10/19 Range/Units 17:06 17:06 17:06 WBC 4.58 L (4.8-10.8) K/uL RBC 4.63 L (4.7-6.1) M/uL Hgb 13.1 L (14.0-18.0) g/dL POC Hgb (14.0-18.0) g/dl Hct 40.0 L (42-52) % POC Hct (42-52) % MCV 86.4 (80-100) fL MCH 28.3 (25-34) pg MCHC 32.8 (32-36) g/dL RDW Std Deviation 43.9 (36.4-46.3) fL RDW Coeff of Ramos 13.9 (11.5-14.5) % Plt Count 145 (130-400) K/uL MPV 9.8 (7.4-10.4) fL Immature Gran % (Auto) 0.2 % Neut % (Auto) 58.7 % Lymph % (Auto) 29.7 % Yell % (Auto) 8.5 % Eos % (Auto) 2.2 % Baso % (Auto) 0.7 % Neut # (Auto) 2.69 (1.4-6.5) K/uL Lymph # (Auto) 1.36 (1.2-3.4) K/uL Yell # (Auto) 0.39 (0.11-0.59) K/uL Eos # (Auto) 0.10 (0-0.5) K/uL Baso # (Auto) 0.03 (0-0.2) K/uL Immature Gran # (Auto) 0.01 (0.00-0.02) K/uL ESR 11 (0-14) mm/hr PT 10.5 (9.0-12.0) Seconds INR 1.0 (0.9-1.1) APTT 25.3 (21.0-31.0) Seconds PTT Ratio 0.9 POC Sodium (135-144) mmol/L Sodium (136-145) mmol/L POC Potassium (3.3-5.0) mmol/L Potassium (3.5-5.1) mmol/L POC Chloride (101-112) mmol/L Chloride (98-107) mmol/L Carbon Dioxide (21-32) mmol/L POC Total CO2 (24-31) mmol/L Anion Gap (3-11) POC Anion Gap (16-25) mmol/L POC BUN (7-18) mg/dl BUN (7-18) mg/dl Creatinine (0.6-1.4) mg/dl POC Creatinine (0.6-1.3) mg/dl Est Cr Clr Drug Dosing ml/min Est GFR ( Amer) Est GFR (Non-Af Amer) BUN/Creatinine Ratio (10-20) Glucose (70-99) mg/dl POC Glucose (70-99) mg/dl POC Glucose (other) (70-99) mg/dl Calcium (8.5-10.1) mg/dl POC Ioniz Calcium Erickson (1.12-1.32) mmol/l Total Bilirubin (0.2-1) mg/dl AST (15-37) U/L ALT (12-78) U/L Alkaline Phosphatase (45-117) U/L Total Protein (6.4-8.2) gm/dl Albumin (3.4-5.0) gm/dl Globulin (2.5-4.0) gm/dl Albumin/Globulin Ratio (0.9-2) Beta-Hydroxybutyric Acd (0.2-2.81) mg/dl Procalcitonin (0-0.5) ng/ml 10/10/19 10/10/19 10/10/19 Range/Units 17:06 17:06 17:15 WBC (4.8-10.8) K/uL RBC (4.7-6.1) M/uL Hgb (14.0-18.0) g/dL POC Hgb 13.6 L (14.0-18.0) g/dl Hct (42-52) % POC Hct 40 L (42-52) % MCV (80-100) fL MCH (25-34) pg MCHC (32-36) g/dL RDW Std Deviation (36.4-46.3) fL RDW Coeff of Ramos (11.5-14.5) % Plt Count (130-400) K/uL MPV (7.4-10.4) fL Immature Gran % (Auto) % Neut % (Auto) % Lymph % (Auto) % Yell % (Auto) % Eos % (Auto) % Baso % (Auto) % Neut # (Auto) (1.4-6.5) K/uL Lymph # (Auto) (1.2-3.4) K/uL Yell # (Auto) (0.11-0.59) K/uL Eos # (Auto) (0-0.5) K/uL Baso # (Auto) (0-0.2) K/uL Immature Gran # (Auto) (0.00-0.02) K/uL ESR (0-14) mm/hr PT (9.0-12.0) Seconds INR (0.9-1.1) APTT (21.0-31.0) Seconds PTT Ratio POC Sodium 132 L (135-144) mmol/L Sodium 133 L (136-145) mmol/L POC Potassium 5.1 H (3.3-5.0) mmol/L Potassium 5.1 (3.5-5.1) mmol/L POC Chloride 100 L (101-112) mmol/L Chloride 102 (98-107) mmol/L Carbon Dioxide 25 (21-32) mmol/L POC Total CO2 23 L (24-31) mmol/L Anion Gap 6.0 (3-11) POC Anion Gap 15.0 L (16-25) mmol/L POC BUN 33 H (7-18) mg/dl BUN 32 H (7-18) mg/dl Creatinine 1.94 H D (0.6-1.4) mg/dl POC Creatinine 1.8 H (0.6-1.3) mg/dl Est Cr Clr Drug Dosing 52.9 ml/min Est GFR ( Amer) 40.9 Est GFR (Non-Af Amer) 35.3 BUN/Creatinine Ratio 16.7 (10-20) Glucose 468 H* (70-99) mg/dl POC Glucose (70-99) mg/dl POC Glucose (other) 491 H* (70-99) mg/dl Calcium 8.7 (8.5-10.1) mg/dl POC Ioniz Calcium Erickson 1.16 (1.12-1.32) mmol/l Total Bilirubin 0.3 (0.2-1) mg/dl AST 18 (15-37) U/L ALT 30 (12-78) U/L Alkaline Phosphatase 47 (45-117) U/L Total Protein 7.3 (6.4-8.2) gm/dl Albumin 3.7 (3.4-5.0) gm/dl Globulin 3.6 (2.5-4.0) gm/dl Albumin/Globulin Ratio 1.0 (0.9-2) Beta-Hydroxybutyric Acd 1.04 (0.2-2.81) mg/dl Procalcitonin < 0.05 (0-0.5) ng/ml 10/10/19 Range/Units 20:57 WBC (4.8-10.8) K/uL RBC (4.7-6.1) M/uL Hgb (14.0-18.0) g/dL POC Hgb (14.0-18.0) g/dl Hct (42-52) % POC Hct (42-52) % MCV (80-100) fL MCH (25-34) pg MCHC (32-36) g/dL RDW Std Deviation (36.4-46.3) fL RDW Coeff of Ramos (11.5-14.5) % Plt Count (130-400) K/uL MPV (7.4-10.4) fL Immature Gran % (Auto) % Neut % (Auto) % Lymph % (Auto) % Yell % (Auto) % Eos % (Auto) % Baso % (Auto) % Neut # (Auto) (1.4-6.5) K/uL Lymph # (Auto) (1.2-3.4) K/uL Yell # (Auto) (0.11-0.59) K/uL Eos # (Auto) (0-0.5) K/uL Baso # (Auto) (0-0.2) K/uL Immature Gran # (Auto) (0.00-0.02) K/uL ESR (0-14) mm/hr PT (9.0-12.0) Seconds INR (0.9-1.1) APTT (21.0-31.0) Seconds PTT Ratio POC Sodium (135-144) mmol/L Sodium (136-145) mmol/L POC Potassium (3.3-5.0) mmol/L Potassium (3.5-5.1) mmol/L POC Chloride (101-112) mmol/L Chloride (98-107) mmol/L Carbon Dioxide (21-32) mmol/L POC Total CO2 (24-31) mmol/L Anion Gap (3-11) POC Anion Gap (16-25) mmol/L POC BUN (7-18) mg/dl BUN (7-18) mg/dl Creatinine (0.6-1.4) mg/dl POC Creatinine (0.6-1.3) mg/dl Est Cr Clr Drug Dosing ml/min Est GFR ( Amer) Est GFR (Non-Af Amer) BUN/Creatinine Ratio (10-20) Glucose (70-99) mg/dl POC Glucose 368 H* (70-99) mg/dl POC Glucose (other) (70-99) mg/dl Calcium (8.5-10.1) mg/dl POC Ioniz Calcium Erickson (1.12-1.32) mmol/l Total Bilirubin (0.2-1) mg/dl AST (15-37) U/L ALT (12-78) U/L Alkaline Phosphatase (45-117) U/L Total Protein (6.4-8.2) gm/dl Albumin (3.4-5.0) gm/dl Globulin (2.5-4.0) gm/dl Albumin/Globulin Ratio (0.9-2) Beta-Hydroxybutyric Acd (0.2-2.81) mg/dl Procalcitonin (0-0.5) ng/ml Administered Medications Fentanyl Citrate (Fentanyl Citrate) 100 mcg IV Q15M PRN PRN Reason: Pain Stop: 10/24/19 20:58 Last Admin: 10/10/19 21:28 Dose: 100 mcg Documented by: [id number] Gadobutrol (Gadavist 65ml) 13 ml IV ONCE PRN PRN Reason: Interaction Checking Stop: 10/14/19 19:54 Last Admin: 10/10/19 19:56 Dose: 13 ml Documented by: [id number] Sodium Chloride (Nss 1000ml) 1,000 mls @ 999 mls/hr IV .Q1H1M ONE Stop: 10/10/19 22:00 Last Admin: 10/10/19 21:28 Dose: 999 mls/hr Documented by: [id number] Discontinued Medications Sodium Chloride (Nss 1000ml) 1,000 mls @ 999 mls/hr IV .Q1H1M KOLBY Stop: 10/10/19 17:00 Last Infusion: 10/10/19 19:01 Dose: 0 mls/hr Documented by: [id number] Admin: 10/10/19 17:27 Dose: 999 mls/hr Documented by: [id number] Ceftriaxone Sodium (Rocephin) 1,000 mg in 50 mls @ 100 mls/hr IV NOW STA Stop: 10/10/19 16:29 Last Infusion: 10/10/19 18:12 Dose: 0 mls/hr Documented by: [id number] Admin: 10/10/19 17:27 Dose: 100 mls/hr Documented by: [id number] Vancomycin HCl 2,500 mg/ (Sodium Chloride) 550 mls @ 200 mls/hr IV NOW ONE Stop: 10/10/19 18:44 Last Admin: 10/10/19 17:28 Dose: 200 mls/hr Documented by: [id number] Insulin Human Regular (Novolin R U-100 Per Unit) 4 units IV NOW STA Stop: 10/10/19 21:01 Last Admin: 10/10/19 21:29 Dose: 4 units Documented by: [id number] Cosigned by: [id number] Imaging Data Radiologist's Impression: Study: MRI left foot HISTORY: Infection: Osteomyelitis: COMPARISON: None. FINDINGS: Findings consistent with diffuse edematous change throughout all major soft tissue as well as subcutaneous fat structures of the left foot. There is been amputation of phalanges of the fifth toe. There appears to be an overlying ulcer negative lesion of the skin surface. Signal characteristics of the bulk of the bony structures appear unremarkable. There is suggestion of early bone marrow replacement involving the extreme distal aspect of the fifth metatarsal. This shows moderate postcontrast enhancement. No additional bony enhancement characteristics are appreciated. There is no evidence for drainable abscess or collection. IMPRESSION: 1. Extensive soft tissue edematous change/cellulitis through the bulk of the left foot including subcutaneous fat and muscular structures. 2. Soft tissue ulceration dorsal to the distal aspect of the fifth as well as fourth metatarsal region. 3. Findings consistent with early osteomyelitis involving the distal aspect of the fifth metatarsal. 4. No evidence for drainable abscess or collection. 5. Prior amputation of the phalanges of the fifth toe. Electronically signed by: Emeterio Lo M.D. 10/10/2019 8:45 PM Dictated: 10/10/192037 Transcribed: 10/10/192037 Blood Pressure Blood Pressure Findings: Normal blood pressure Discharge Plan Visit Data Chief Complaint: Infection Stated Complaint: CELLULITIS OF L FOOT ED Provider: Antonio Urena Discharge Problem: Acute osteomyelitis of left foot, Cellulitis of foot, left, Acute hyperglycemia Patient Disposition: Being Evaluated by Hospitalist Condition: Good Forms Stand Alone Forms: [facility], Virtual Emergency Department, Important Visit Information Prescriptions Prescriptions: No Action celecoxib 200 mg capsule 200 mg PO DAILY Qty: 90 RF: 1 cyclobenzaprine 5 mg tablet 5 mg PO TID PRN (Reason: Muscle Spasm) Qty: 90 RF: 1 fenofibrate 160 mg tablet 160 mg PO HS Qty: 90 RF: 3 gabapentin [Neurontin] 800 mg tablet 800 mg PO TID Qty: 90 RF: 3 Humulin R U-500 (Conc) Kwikpen 500 unit/mL (3 mL) insulin pen 100 unit SQ TIDM Qty: 6 RF: 11 lisinopril [Zestril] 20 mg tablet 20 mg PO HS Qty: 90 RF: 3 pravastatin [Pravachol] 40 mg tablet 40 mg PO HS Qty: 90 RF: 3 albuterol sulfate 2.5 mg /3 mL (0.083 %) solution for nebulization 2.5 mg INH Q8H PRN (Reason: Bronchospasm J 45.587) Qty: 180 RF: 3 clonazepam [Klonopin] 1 mg tablet 1 mg PO TID Qty: 90 RF: 0 ascorbic acid (vitamin C) 500 mg capsule 500 mg PO BID RF: 0 Centrum Silver 0.4-300-250 mg-mcg-mcg tablet 1 tab PO QAM RF: 0 sertraline [Zoloft] 100 mg tablet 100 mg PO HS RF: 0 aspirin 325 mg tablet,delayed release (DR/EC) 325 mg PO DAILY RF: 0 azelastine 137 mcg (0.1 %) aerosol,spray 2 sprays INTNAS BID Qty: 30 RF: 2 chlorpheniramine maleate [Allergy (chlorpheniramine)] 4 mg tablet 4 mg PO Q12H PRN (Reason: itching) Qty: 60 RF: 5 Trulicity 0.75 mg/0.5 mL pen injector 0.75 mg SQ WEEKLY Qty: 2 RF: 2 acetaminophen [Tylenol Extra Strength] 500 mg Tablet 1,000 mg PO Q8H PRN (Reason: Pain) RF: 0 temazepam 15 mg capsule 30 mg PO HS RF: 0 Referrals Referrals: Guilherme Isaac MD [Primary Care Provider] -
[2019-10-10 17:31] LABS: Basophils # (auto) 0.03 K/uL (0-0.2); Basophils % (auto) 0.7 %; Eosinophils % (auto) 2.2 %; Hemoglobin 13.1 g/dL (14.0-18.0); Immature Granulocytes # (auto) 0.01 K/uL (0.00-0.02); Immature Granulocytes % (auto) 0.2 %; Lymphocytes # (auto) 1.36 K/uL (1.2-3.4); Lymphocytes % (auto) 29.7 %; Mean Corpuscular Hemoglobin 28.3 pg (25-34); Mean Corpuscular Hgb Conc 32.8 g/dL (32-36); Mean Corpuscular Volume 86.4 fL (80-100); Mean Platelet Volume 9.8 fL (7.4-10.4); Monocytes # (auto) 0.39 K/uL (0.11-0.59); Monocytes % (auto) 8.5 %; Neutrophils # (auto) 2.69 K/uL (1.4-6.5); Neutrophils % (auto) 58.7 %; Platelet Count 145 K/uL (130-400); RDW Coefficient of Variation 13.9 % (11.5-14.5); RDW Standard Deviation 43.9 fL (36.4-46.3); Red Blood Count 4.63 M/uL (4.7-6.1); White Blood Count 4.58 K/uL (4.8-10.8)
[2019-10-10 17:41] LABS: Partial Thromboplastin Ratio 0.9; Partial Thromboplastin Time 25.3 Seconds (21.0-31.0); Prothrombin Time 10.5 Seconds (9.0-12.0)
[2019-10-10 18:05] LABS: iSTAT Creatinine 1.8 mg/dl (0.6-1.3); iSTAT Hemoglobin 13.6 g/dl (14.0-18.0); iSTAT Ionized Calcium 1.16 mmol/l (1.12-1.32); iSTAT Potassium 5.1 mmol/L (3.3-5.0)
[2019-10-10 18:15] LABS: Albumin Level 3.7 gm/dl (3.4-5.0); BUN Creatinine Ratio 16.7 (10-20); Bilirubin,Total 0.3 mg/dl (0.2-1); Calcium 8.7 mg/dl (8.5-10.1); Creatinine Clr Calc Pharmacy 52.9 ml/min; Est GFR (African American) 40.9; Est GFR (Non-African American) 35.3; Globulin 3.6 gm/dl (2.5-4.0); Potassium 5.1 mmol/L (3.5-5.1); Total Protein 7.3 gm/dl (6.4-8.2)
[2019-10-10 18:27] LABS: Beta-Hydroxybutyrate 1.04 mg/dl (0.2-2.81)
[2019-10-10] MEDS ORDERED: GADOBUTROL 65ML VIAL IV PRN (19:55)
--- NOTE | 2019-10-10 20:46 | Magnetic Resonance Report ---
Study: MRI left foot HISTORY: Infection: Osteomyelitis: COMPARISON: None. FINDINGS: Findings consistent with diffuse edematous change throughout all major soft tissue as well as subcutaneous fat structures of the left foot. There is been amputation of phalanges of the fifth t oe. There appears to be an overlying ulcer negative lesion of the skin surface. Signal characteristics of the bulk of the bony structures appear unremarkable. There is suggestion of early bone marrow replacement involving the extreme distal aspect of the fifth metatarsal. This shows moderate postcontrast enhancement. No additional bony enhancement characteristics are appreciated. There is no evidence for drainable abscess or collection. IMPRESSION: 1. Extensive soft tissue edematous change/cellulitis through the bulk of the left foot including subc utaneous fat and muscular structures. 2. Soft tissue ulceration dorsal to the distal aspect of the fifth as well as fourth metatarsal regio n. 3. Findings consistent with early osteomyelitis involving the distal aspect of the fifth metatarsal. 4. No evidence for drainable abscess or collection. 5. Prior amputation of the phalanges of the fifth toe. Electronically signed by: Emeterio Lo M.D. 10/10/2019 8:45 PM
[2019-10-10] MEDS ORDERED: fentaNYL citrate 100 MCG/2 ML VIAL IV PRN (20:59)
[2019-10-10] MEDS ORDERED: SODIUM CHLORIDE 0.9% 1000ML 1,000 ML IV ONE (21:00)
[2019-10-10] MEDS ORDERED: NovoLIN-R INSULIN PER UNIT CHARGE IV STA (21:00)
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
[2019-10-11] MEDS ORDERED: VANCOMYCIN CONSULT ACTIVE PRN (00:14)
[2019-10-11] MEDS ORDERED: CYCLOBENZAPRINE HCL 5 MG TAB PO PRN (00:14)
[2019-10-11] MEDS ORDERED: [UNRECOGNIZED DRUG - REMARK] PO PRN (00:14)
[2019-10-11] MEDS ORDERED: POLYETHYLENE (MIRALAX) 17 GM PACK PO PRN (00:14)
[2019-10-11] MEDS ORDERED: CEFEPIME CONSULT ACTIVE PRN (00:14)
[2019-10-11] MEDS ORDERED: ONDANSETRON INJ 2 MG/ML 2 ML VIAL IV PRN (00:14)
[2019-10-11] MEDS ORDERED: DC ALL PREVIOUSLY ORDERED DIABETES MEDS ONE (00:14)
[2019-10-11] MEDS ORDERED: PHARMACY GLYCEMIC MGMT CONSULT PRN (00:24)
[2019-10-11] MEDS ORDERED: GLUCAGON FOR INJ 1 MG VIAL IM PRN (01:00)
[2019-10-11] MEDS ORDERED: DEXTROSE 50% 50 ML SYRINGE IV PRN (01:00)
[2019-10-11] MEDS ORDERED: GLUCOSE 10 TABS/TUBE PO PRN (01:00)
[2019-10-11] MEDS ORDERED: INSULIN ASPART 100 UNITS/ML VIAL SC ONE ×2 (01:00→07:30)
[2019-10-11] MEDS ORDERED: GLUCOSE 40% GEL 15 GM TUBE PO PRN (01:00)
[2019-10-11] MEDS ORDERED: INSULIN HUMAN NPH SC ONE (01:00)
--- NOTE | 2019-10-11 01:10 | Pharmacy Report ---
Pharmacy Abx/Gly Intl Consult - Date of Service October 11, 2019 - Scope Pharmacy has been consulted by Dr. Douglas to manage vancomycin and cefepime and glycemic control for this patient as per the Pharmacy & Therapeutics Committee approved dosing protocols. - Subjective The patient is a 64 year old M admitted on 10/10/19 22:30 with worsening acute osteomyelitis on his foot. - Objective Vital Signs (Past 12hrs): Vital Signs Temp Pulse Pulse Resp BP BP Pulse Ox 10/11/19 00:10 36.6 C 81 16 168/93 H 98 10/10/19 23:44 75 18 134/67 95 10/10/19 23:00 67 18 144/73 H 97 10/10/19 22:30 68 10 L 94 10/10/19 22:01 14 133/60 97 10/10/19 22:00 19 10/10/19 21:31 76 25 H 158/91 H 98 10/10/19 21:30 77 21 97 10/10/19 21:01 89 14 125/67 97 10/10/19 21:00 90 15 10/10/19 20:44 79 80 17 134/81 134/81 97 10/10/19 20:43 84 14 10/10/19 19:00 76 15 10/10/19 18:30 78 19 10/10/19 18:07 78 10/10/19 17:35 82 17 95 10/10/19 17:33 81 14 114/77 97 10/10/19 17:20 82 18 114/77 97 10/10/19 15:29 36.6 C 87 19 129/76 98 Accuchecks BSG (last 24hrs): 10/10/19 10/10/19 10/10/19 17:06 17:15 20:57 Glucose 468 H* POC Glucose 368 H* POC Glucose (other) 491 H* 10/10/19 10/11/19 21:59 00:48 Glucose POC Glucose 329 H* 350 H* POC Glucose (other) Lab Results (24hrs): Laboratory Results - last 24 hr 10/10/19 10/10/19 10/10/19 17:06 17:06 17:06 WBC 4.58 L RBC 4.63 L Hgb 13.1 L POC Hgb Hct 40.0 L POC Hct MCV 86.4 MCH 28.3 MCHC 32.8 RDW Std Deviation 43.9 RDW Coeff of Ramos 13.9 Plt Count 145 MPV 9.8 Immature Gran % (Auto) 0.2 Neut % (Auto) 58.7 Lymph % (Auto) 29.7 [place] % (Auto) 8.5 Eos % (Auto) 2.2 Baso % (Auto) 0.7 Neut # (Auto) 2.69 Lymph # (Auto) 1.36 [place] # (Auto) 0.39 Eos # (Auto) 0.10 Baso # (Auto) 0.03 Immature Gran # (Auto) 0.01 ESR 11 PT 10.5 INR 1.0 APTT 25.3 PTT Ratio 0.9 POC Sodium Sodium POC Potassium Potassium POC Chloride Chloride Carbon Dioxide POC Total CO2 Anion Gap POC Anion Gap POC BUN BUN Creatinine POC Creatinine Est Cr Clr Drug Dosing Est GFR ( Amer) Est GFR (Non-Af Amer) BUN/Creatinine Ratio Glucose POC Glucose POC Glucose (other) Calcium POC Ioniz Calcium Erickson Total Bilirubin AST ALT Alkaline Phosphatase Total Protein Albumin Globulin Albumin/Globulin Ratio Beta-Hydroxybutyric Acd Procalcitonin 10/10/19 10/10/19 10/10/19 17:06 17:06 17:15 WBC RBC Hgb POC Hgb 13.6 L Hct POC Hct 40 L MCV MCH MCHC RDW Std Deviation RDW Coeff of Ramos Plt Count MPV Immature Gran % (Auto) Neut % (Auto) Lymph % (Auto) [place] % (Auto) Eos % (Auto) Baso % (Auto) Neut # (Auto) Lymph # (Auto) [place] # (Auto) Eos # (Auto) Baso # (Auto) Immature Gran # (Auto) ESR PT INR APTT PTT Ratio POC Sodium 132 L Sodium 133 L POC Potassium 5.1 H Potassium 5.1 POC Chloride 100 L Chloride 102 Carbon Dioxide 25 POC Total CO2 23 L Anion Gap 6.0 POC Anion Gap 15.0 L POC BUN 33 H BUN 32 H Creatinine 1.94 H D POC Creatinine 1.8 H Est Cr Clr Drug Dosing 52.9 Est GFR ( Amer) 40.9 Est GFR (Non-Af Amer) 35.3 BUN/Creatinine Ratio 16.7 Glucose 468 H* POC Glucose POC Glucose (other) 491 H* Calcium 8.7 POC Ioniz Calcium Erickson 1.16 Total Bilirubin 0.3 AST 18 ALT 30 Alkaline Phosphatase 47 Total Protein 7.3 Albumin 3.7 Globulin 3.6 Albumin/Globulin Ratio 1.0 Beta-Hydroxybutyric Acd 1.04 Procalcitonin < 0.05 10/10/19 10/10/19 10/11/19 20:57 21:59 00:48 WBC RBC Hgb POC Hgb Hct POC Hct MCV MCH MCHC RDW Std Deviation RDW Coeff of Ramos Plt Count MPV Immature Gran % (Auto) Neut % (Auto) Lymph % (Auto) [place] % (Auto) Eos % (Auto) Baso % (Auto) Neut # (Auto) Lymph # (Auto) [place] # (Auto) Eos # (Auto) Baso # (Auto) Immature Gran # (Auto) ESR PT INR APTT PTT Ratio POC Sodium Sodium POC Potassium Potassium POC Chloride Chloride Carbon Dioxide POC Total CO2 Anion Gap POC Anion Gap POC BUN BUN Creatinine POC Creatinine Est Cr Clr Drug Dosing Est GFR ( Amer) Est GFR (Non-Af Amer) BUN/Creatinine Ratio Glucose POC Glucose 368 H* 329 H* 350 H* POC Glucose (other) Calcium POC Ioniz Calcium Erickson Total Bilirubin AST ALT Alkaline Phosphatase Total Protein Albumin Globulin Albumin/Globulin Ratio Beta-Hydroxybutyric Acd Procalcitonin Micro Results: 10/10/19 17:21 Aerobic Blood Culture - Pending Blood Anaerobic Blood Culture - Pending 10/10/19 17:06 Aerobic Blood Culture - Pending Blood Anaerobic Blood Culture - Pending 10/10/19 16:10 Gram Stain - Pending Foot,Left Wound Culture - Pending - Risk Factors for Resistance Risk Factors for Antimicrobial Resistance: * Hospitalization for 48 hours or more within the past 90 days * Antimicrobial use within the last 90 days (vancomycin, Rocephin, and Flagyl) - Recent Pertinent Medications Recent Pertinent Medications/Risk Factors for Insulin Resist: Outpatient Anti-diabetic Regimen: * U-500 --> 100 units TIDM * A1c = 10.6 % 10/01/2019 Risk Factors for Insulin Resistance: * Infection: osteomyelitis on vancomycin and cefepime * Recent Surgery: recent foot amputation * Diet: T2DM - Assessment Mr Villa is a 64 y/o M with worsening ostomyelitis after amputation. Antibiotics to be broadened. He has poorly controlled T2DM. On approximately 300 units of insulin at home. Previously was admitted and started on NPH 35 units plus Novolog CF 10 and CR of 2. Will start there for now. With BSG at 0100 of 350 mg/dL give 10 units IV bolus (K = 5.1) plus Novolog plus NPH. ADA & AACE recommend a goal blood sugar range 140-180 mg/dl for the majority of critically ill & non-critically ill patients. However, more stringent targets may be selected in individual cases. Will utilize more stringent goal of 110- 140mg/dl based on patient age & comorbidities. Additionally, tighter glycemic control is warranted to facilitate infection healing. - Plan ANTIMICROBIAL THERAPY Vancomycin IV * Loading dose: 2500 mg (19 mg/kg) * Maintenance dose: 1250 mg IV (9 mg/kg) every 12 hours (patient specific ph armacokinetics suggest that vancomycin 1500 mg IV q12 hours was too aggressive --> trough of 20.7) * Goal trough level for osteomyelitis : 15 to 20 mcg/mL * Trough ordered for 10/13/2019 * A less than traditional dose and extended dosing interval has been selected due to likelihood of drug accumulation in obese patient. Basal Insulin * NPH 35 units SQ x1 then 35 units SQ BIDM Bolus Insulin * NovoLog per scale ACHS or Q6hrs while NPO * Goal Range: Low 110 mg/dL - High 140 mg/dL * Correction Factor: 10 mg/dL/unit * Nutritional / Prandial insulin per carb ratio of 1 unit per 2 grams CHO consumed * Please note that the plan above was derived based on current level of insulin resistance and hospital stress. These recommendations are appropriate for inpatient admission only. Plan of care upon discharge will need to be reassessed to avoid potential outpatient hypo/hyperglycemia. Pharmacy will follow patient and adjust orders on a daily basis. Thank you for allowing us to participate in this patients care.
[2019-10-11] MEDS: CEFEPIME 2,000 MG in SYRINGE 7.5 ML IV SCH ×3 (01:14→18:36)
[2019-10-11] MEDS ORDERED: INSULIN HUMAN REGULAR IV BOLUS 10 UNITS in SYRINGE 0 ML IV ONE (01:15)
[2019-10-11] MEDS: TEMAZEPAM 15 MG CAPSULE PO SCH ×2 (01:16→22:12)
[2019-10-11] MEDS: SODIUM CHLORIDE 0.9% 1000ML 1,000 ML IV SCH ×2 (02:25→21:43)
[2019-10-11] MEDS: VANCOMYCIN HCL 1,250 MG in SODIUM CHLORIDE 0.9% 250 ML IV SCH ×2 (03:54→22:42)
--- NOTE | 2019-10-11 06:58 | Ultrasound Report ---
US ankle/brachial index comp CLINICAL HISTORY: Concern for peripheral arterial disease COMPARISON STUDY: No previous studies for comparison. TECHNIQUE: Bilateral ankle to brachial indices were attempted. FINDINGS: Due to noncompressibility, accurate ankle to brachial indices could not be obtained. IMPRESSION: Nondiagnostic study. Due to vessel noncompressibility, accurate ankle to brachial indices could not be obtained. ACT 112: Negative or not required by law. Electronically signed by: Lm Quintanilla M.D. 10/11/2019 6:57 AM
[2019-10-11] MEDS ORDERED: INSULIN ASPART 100 UNITS/ML VIAL SC SCH (08:00)
[2019-10-11] MEDS: MULTIVITAMIN TAB PO SCH (08:11)
[2019-10-11] MEDS: ENOXAPARIN INJ 40 MG/0.4 ML SYR SQ SCH (08:11)
[2019-10-11] MEDS: ASCORBIC ACID 500 MG TAB PO SCH ×2 (08:11→22:00)
[2019-10-11] MEDS: GABAPENTIN 800 MG TAB PO SCH ×3 (08:11→21:59)
[2019-10-11] MEDS: metroNIDAZOLE 500 MG/100 ML BAG IV SCH ×2 (08:11→18:36)
[2019-10-11] MEDS: INSULIN HUMAN NPH SC SCH ×2 (08:40→18:13)
[2019-10-11] MEDS: SACCHAROMYCES BOULARDII 250 MG CAP PO SCH (08:40)
[2019-10-11] MEDS ORDERED: NON-FORMULARY MEDICATION (Azelastine 2 SPRAYS) INTNAS SCH (09:00)
--- NOTE | 2019-10-11 09:33 | Hospitalist Progress Note ---
Date of Service October 11, 2019 Assessment & Plan (1) Acute osteomyelitis of left foot: Lenin Villa is a a 64 year old man with IDDM who has a new osteomyelitis from a nonhealing wound on his left foot after left fifth digit amputation on September 05 Possible early osteomyelitis of fifth metatarsal visible on MRI Continue Flagyl, cefepime, and vancomycin Blood cultures drawn x2 Podiatry consulted - recommend vascular consult to assist in characterizing patient's PAD (2) Cellulitis of foot, left: As above (3) Diarrhea: Likely secondary to prolonged antibiotic administration, c diff negative at last visit Continue probiotics (4) Acute renal failure superimposed on stage 3 chronic kidney disease: FADI resolved Avoid nephrotoxins where possible (5) Heart murmur: Patient reports a provider recently commented on hearing this as well. He reports an echo recently but I do not see one in our records. BC are pending Could consider an echo if patient is to go to surgery and anesthesia prefers one prior but at this point patient is not symptomatic so will recommend follow up with pcp (6) Type 2 diabetes, uncontrolled, with neuropathy: Last A1c 10.6 Pharmacy consulted for glycemic management - patient with significant insulin doses and hyperglycemia (7) Depression: Continue sertraline (8) COPD (chronic obstructive pulmonary disease): Stable, no changes to home regimen albuterol PRN Non smoker (9) Hyperlipidemia: Continuing fenofibrate and statin (10) DVT prophylaxis: Lovenox Admission and Anticipated Discharge Date Admission Date: October 10, 2019 Subjective Mr. Villa is feeling tired and frustrated by his second hospitalization in such a short time. He is not having much pain. Denies any aches or chills. ROS Constitutional: no chills, aches, sweats or fever Respiratory: no sob,cough, sputum, or wheezing Cardiac: no chest pain, palpitations, edema, orthopnea or lightheadedness GI: no abdominal pain, nausea, vomiting, diarrhea or constipation : no dysuria or hesitancy Extremities: no joint pain or weakness Skin: no rash All other systems reviewed and negative Physical Exam Physical Exam: General: no distress Eyes: normal inspection, PERLL Respiratory: chest non tender, clear to auscultation, normal breath sounds, no respiratory distress, no accessory muscle use Cardiac: regular rate and rhythm, no rub or gallop, systolic murmur 2/6, no edema, no jvd GI/: active bowel sounds, no abd pain or tenderness, soft, non distended Extremities: normal range of motion, normal strength, non tender Neuro/Psych: alert and oriented x 3, normal mood and affect Skin: normal color, dry, left foot wound with minimal serosanguineous drainage Results & Data Results & Data ([facility]) Vital Signs (Past 12 Hours) Vital Signs Temp Pulse Pulse Resp BP BP Pulse Ox 10/11/19 07:18 36.6 C 68 16 135/79 98 10/11/19 00:10 36.6 C 81 16 168/93 H 98 10/10/19 23:44 75 18 134/67 95 10/10/19 23:00 67 18 144/73 H 97 10/10/19 22:30 68 10 L 94 10/10/19 22:01 14 133/60 97 10/10/19 22:00 19 PG Care Time/CCT Total # of Minutes Spent Total Time Spent with Patient: Total time spent is greater than 50% in coordination of care (as documented) at patient's floor/unit and/or counseling patient: Coding Level of Care Code 40441 Subseq Hosp Care Lvl 3 Diagnoses Acute osteomyelitis of left foot M86.172 Cellulitis of foot, left L03.116 Diarrhea R19.7 Diarrhea type: unspecified type Acute renal failure superimposed on stage 3 chronic kidney disease N17.9; N18.3 Heart murmur R01.1 Type 2 diabetes, uncontrolled, with neuropathy E11.40; E11.65 Depression F32.9 COPD (chronic obstructive pulmonary disease) J44.9 COPD type: unspecified COPD Hyperlipidemia E78.5 Hyperlipidemia type: unspecified DVT prophylaxis Z29.9 (1) Diarrhea Diarrhea type: unspecified type Qualified Code(s): R19.7 - Diarrhea, unspecified (2) COPD (chronic obstructive pulmonary disease) COPD type: unspecified COPD Qualified Code(s): J44.9 - Chronic obstructive pulmonary disease, unspecified (3) Hyperlipidemia Hyperlipidemia type: unspecified Qualified Code(s): E78.5 - Hyperlipidemia, unspecified
[2019-10-11 10:16] LABS: Albumin Globulin Ratio 1.1 (0.9-2); Albumin Level 3.6 gm/dl (3.4-5.0); BUN Creatinine Ratio 19.8 (10-20); Bilirubin,Total 0.4 mg/dl (0.2-1); Calcium 8.8 mg/dl (8.5-10.1); Est GFR (African American) 80.3; Est GFR (Non-African American) 69.3; Globulin 3.2 gm/dl (2.5-4.0); Potassium 3.9 mmol/L (3.5-5.1); Total Protein 6.8 gm/dl (6.4-8.2)
[2019-10-11 10:26] LABS: Basophils # (auto) 0.05 K/uL (0-0.2); Basophils % (auto) 1.1 %; Eosinophils # (auto) 0.14 K/uL (0-0.5); Eosinophils % (auto) 3.1 %; Hemoglobin 12.7 g/dL (14.0-18.0); Lymphocytes # (auto) 1.29 K/uL (1.2-3.4); Lymphocytes % (auto) 28.9 %; Mean Corpuscular Hemoglobin 27.4 pg (25-34); Mean Corpuscular Hgb Conc 31.8 g/dL (32-36); Mean Corpuscular Volume 86.2 fL (80-100); Monocytes # (auto) 0.32 K/uL (0.11-0.59); Monocytes % (auto) 7.2 %; Neutrophils # (auto) 2.67 K/uL (1.4-6.5); Neutrophils % (auto) 59.7 %; Platelet Count 144 K/uL (130-400); RDW Coefficient of Variation 13.9 % (11.5-14.5); RDW Standard Deviation 43.9 fL (36.4-46.3); Red Blood Count 4.64 M/uL (4.7-6.1); White Blood Count 4.47 K/uL (4.8-10.8)
[2019-10-11] MEDS: INSULIN ASPART 100 UNITS/ML VIAL SC SCH ×3 (12:07→22:07)
[2019-10-11] MEDS: CARBOHYDRATES FOR HYPOGLYCEMIA PO PRN (12:14)
--- NOTE | 2019-10-11 12:54 | Podiatry Consultation ---
Date of Consultation October 11, 2019 Assessment & Plan (1) Acute renal failure superimposed on stage 3 chronic kidney disease: (2) Cellulitis of foot, left: (3) Diabetic infection of left foot: History of Present Illness Attending Physician: Mario Alberto Gore MD Patient is a very pleasant 64 year old male, history of poorly controlled diabetes, neuropathy, depression, COPD and chronic kidney disease. I saw patient at bedside today at noon. Patient had a recent left 5th toe amputation on September 07 by of [facility]. Patient has a wound on the dorsum of the left foot with possible early osteomyelitis per MRI performed on admission here. The wound itself is healthy without purulent drainage, no erythema streaking proximally, and no malodor. The most pressing issue with his foot wound, is his PAD, I am not able to palpate a DP pulse or PT pulse on this patient on the left side, and I discussed this issue with him as well today. I saw ABIs were ordered and they are non-compressible and I am not able to get an understanding of the severity of his PAD. The PAD may be preventing this wound from healing, I strongly feel that a vascular consult is recommended to see the amount of circulation to the left foot for wound healing. Allergies Allergy/AdvReac Type Severity Reaction Status Date / Time codeine Allergy Unknown RASH, Verified 10/10/19 16:14 VOMITING Penicillins Allergy Unknown RASH Verified 10/10/19 16:14 amoxicillin [From Augmentin] Allergy Vomiting Verified 10/10/19 16:14 ciprofloxacin [From Cipro] Allergy Hives Verified 10/10/19 16:14 clavulanic acid Allergy Vomiting Verified 10/10/19 16:14 [From Augmentin] exenatide [From Bydureon] Allergy . Verified 10/10/19 16:14 Home Medications Home Medications Medication Instructions Recorded Confirmed Type ascorbic acid (vitamin C) 500 mg 500 mg PO BID cap 01/20/19 10/10/19 History capsule clonazepam 1 mg tablet 1 mg PO TID #90 tab 01/20/19 10/10/19 History rvabkoqr-[id number]-hlwpx acid 0.4 1 tab PO QAM 01/20/19 10/10/19 History mg-lycopene 300 mcg-lutein 250 mcg tablet sertraline 100 mg tablet 100 mg PO HS 01/20/19 10/10/19 History aspirin 325 mg tablet,delayed 325 mg PO DAILY tab 05/22/19 10/10/19 History release acetaminophen [Tylenol Extra 1,000 mg PO Q8H PRN 09/15/19 10/10/19 History Strength] temazepam 30 mg PO HS 09/30/19 10/10/19 History celecoxib 200 mg capsule 200 mg PO DAILY #90 cap 10/03/19 10/10/19 Rx cyclobenzaprine 5 mg tablet 5 mg PO TID PRN #90 tab 10/03/19 10/10/19 Rx fenofibrate 160 mg tablet 160 mg PO HS #90 tab 10/03/19 10/10/19 Rx gabapentin 800 mg tablet 800 mg PO TID #90 tab 10/03/19 10/10/19 Rx insulin regular hum U-500 conc 100 unit SQ TIDM #6 ml 10/03/19 10/10/19 Rx lisinopril 20 mg tablet 20 mg PO HS #90 tab 10/03/19 10/10/19 Rx pravastatin 40 mg tablet 40 mg PO HS #90 tab 10/03/19 10/10/19 Rx albuterol sulfate 2.5 mg INH Q8H PRN #180 ml 10/04/19 10/10/19 Rx azelastine 137 mcg (0.1 %) nasal 2 sprays INTNAS BID #30 ml 10/09/19 10/10/19 Rx spray aerosol chlorpheniramine maleate 4 mg 4 mg PO Q12H PRN #60 tab 10/09/19 10/10/19 Rx tablet dulaglutide 0.75 mg/0.5 mL 0.75 mg SQ WEEKLY #2 ml 10/09/19 10/10/19 Rx subcutaneous pen injector Patient History Medical History Anxiety (Chronic) Asthma (Acute) COPD (chronic obstructive pulmonary disease) (Chronic) Depression (Acute) Diabetes (Chronic) Hyperlipidemia (Chronic) Hypertension (Chronic) Insomnia (Acute) Irritable bowel syndrome (IBS) (Acute) Lumbar radiculopathy (Acute) Macular degeneration (Acute) Obese (Acute) PTSD (post-traumatic stress disorder) (Chronic) Type 2 diabetes, uncontrolled, with neuropathy (Chronic) Surgical History History of amputation left 5th toe -09/06/19 at [facility] History of back surgery History of tonsillectomy Hx of tooth extraction Family History Mother , 57 Cancer Cervical cancer Esophageal cancer Father Myocardial infarction Colon cancer Sister , 53 AML (acute myelogenous leukemia) Stroke Scleroderma Sister Fibrocystic breast disease Sister Anxiety Anorexia nervosa Denies family history of Ovarian cancer Prostate cancer Breast cancer Social History Preferred Language: Montserratian Communication Ability: Effective Visual Impairment: No Limitations Hearing Ability: Normal Associate Professor Of Philosophy Required: No Beliefs That Will Affect Care: None marital status: Life Partner Current Living Situation: Spouse current occupational status: retired Other Information That Helps Us Care for You: No Feels Safe at Home: Yes Safety Concerns: Feels Safe At This Time Smoking Status: Former smoker Tobacco Type: cigarettes ; Age Started Using Tobacco: 26 ; Age Quit Using Tobacco: 37 ; Cigarettes Per Day: Social smoker 1 pk lasted 1 month ; Do You Dip or Chew Tobacco: No ; Second Hand Exposure: No ; Hx Alcohol Use: No Hx Substance Use: No Childhood Exposure to Second-Hand Smoke: Yes Dental Care, Regularly: Yes Seatbelt Use: always Sunscreen Use: Yes Review of Systems Review of Systems: All systems reviewed & are unremarkable except as noted in HPI & below Physical Exam Skin: left foot with dorsal lateral foot wound with visit extensor tendons, the wound is dry and without purulent drainage, no malodor and no proximal streaking no palpable pulses noted of the left foot with pedal hair absent, capillary refill time however seemed normal and skin turgor within normal limits. s/p left 5th toe amputation and open dorsal area in the setting of PAD, severe diabetic neuropathy - before further surgical intervention / vac / or grating recommend vascular surgery consult Results & Data Vital Signs (Past 12 Hours) Vital Signs Temp Pulse Resp BP Pulse Ox 10/11/19 07:18 36.6 C 68 16 135/79 98
[2019-10-11] MEDS: ACETAMINOPHEN 500 MG TAB PO PRN (15:02)
[2019-10-11] MEDS ORDERED: NON-FORMULARY MEDICATION (Fenofibrate 160 MG) PO SCH (21:00)
--- NOTE | 2019-10-11 21:02 | XRay Report ---
XR chest 1V portable HISTORY: 64 years-old Male PICC placement status post placement of a left-sided PICC COMPARISON: Chest radiograph 09/30/2019 TECHNIQUE: Portable AP view the chest FINDINGS: Status post placement of a left-sided PICC, distal tip terminating in the expected location of the br achiocephalic SVC confluence. No pneumothorax, pleural effusion, overt pulmonary edema or airspace co nsolidation typical for pneumonia. Cardiac mediastinal and hilar silhouettes are within normal limits . Degenerative changes of the spine. IMPRESSION: 1. Status post placement of a left-sided PICC, distal tip terminating in the expected location of the brachiocephalic SVC confluence. 2. No pneumothorax. ACT 112: Negative or not required by law. The above report was generated using voice recognition software. It may contain grammatical, syntax o r spelling errors. Electronically signed by: Eros Sherwood M.D. 10/11/2019 9:01 PM
[2019-10-11] MEDS: SERTRALINE HCL 100 MG TABLET PO SCH (21:53)
[2019-10-11] MEDS: PRAVASTATIN SOD 40 MG TAB PO SCH (21:59)
[2019-10-11] MEDS: TRAMADOL HCL 50 MG TABLET PO PRN (21:59)
[2019-10-11] MEDS: lisinopriL 20 MG TAB PO SCH (22:01)
[2019-10-12] MEDS: metroNIDAZOLE 500 MG/100 ML BAG IV SCH ×3 (00:06→16:06)
[2019-10-12] MEDS: CEFEPIME 2,000 MG in SYRINGE 7.5 ML IV SCH ×3 (01:05→17:10)
[2019-10-12] MEDS ORDERED: INSULIN ASPART 100 UNITS/ML VIAL SC SCH (02:00)
[2019-10-12] MEDS ORDERED: VANCOMYCIN TROUGH ONE ×3 (03:30→23:30)
[2019-10-12 06:18] LABS: Creatinine Clr Calc Pharmacy 98.2 ml/min; Est GFR (African American) 86.9
[2019-10-12 07:24] LABS: Basophils # (auto) 0.04 K/uL (0-0.2); Basophils % (auto) 0.7 %; Eosinophils # (auto) 0.18 K/uL (0-0.5); Eosinophils % (auto) 3.2 %; Hematocrit (blood only) 38.8 % (42-52); Hemoglobin 12.7 g/dL (14.0-18.0); Immature Granulocytes # (auto) 0.01 K/uL (0.00-0.02); Immature Granulocytes % (auto) 0.2 %; Lymphocytes # (auto) 1.58 K/uL (1.2-3.4); Lymphocytes % (auto) 27.9 %; Mean Corpuscular Hemoglobin 28.2 pg (25-34); Mean Corpuscular Hgb Conc 32.7 g/dL (32-36); Mean Platelet Volume 9.8 fL (7.4-10.4); Monocytes # (auto) 0.54 K/uL (0.11-0.59); Monocytes % (auto) 9.5 %; Neutrophils # (auto) 3.32 K/uL (1.4-6.5); Neutrophils % (auto) 58.5 %; Platelet Count 139 K/uL (130-400); RDW Coefficient of Variation 13.6 % (11.5-14.5); RDW Standard Deviation 43.1 fL (36.4-46.3); Red Blood Count 4.51 M/uL (4.7-6.1); White Blood Count 5.67 K/uL (4.8-10.8)
[2019-10-12 07:32] LABS: Albumin Level 3.4 gm/dl (3.4-5.0); BUN Creatinine Ratio 14.4 (10-20); Calcium 8.7 mg/dl (8.5-10.1); Creatinine Clr Calc Pharmacy 92.8 ml/min; Est GFR (African American) 81.2; Est GFR (Non-African American) 70.1; Potassium 3.9 mmol/L (3.5-5.1)
[2019-10-12 07:34] LABS: Bilirubin,Total 0.4 mg/dl (0.2-1); Globulin 3.5 gm/dl (2.5-4.0); Total Protein 6.9 gm/dl (6.4-8.2)
[2019-10-12] MEDS: SIMETHICONE 80 MG CHEW PO SCH ×3 (07:54→17:26)
[2019-10-12] MEDS: ALBUTEROL 0.083% NEBU SOLN 3 ML VIAL INH PRN (08:13)
[2019-10-12] MEDS: TRAMADOL HCL 50 MG TABLET PO PRN ×2 (08:57→17:26)
[2019-10-12] MEDS: ASCORBIC ACID 500 MG TAB PO SCH ×2 (08:58→21:33)
[2019-10-12] MEDS: ENOXAPARIN INJ 40 MG/0.4 ML SYR SQ SCH (08:58)
[2019-10-12] MEDS: SACCHAROMYCES BOULARDII 250 MG CAP PO SCH (08:59)
[2019-10-12] MEDS: MULTIVITAMIN TAB PO SCH (08:59)
[2019-10-12] MEDS: GABAPENTIN 800 MG TAB PO SCH ×3 (08:59→21:34)
[2019-10-12] MEDS: INSULIN ASPART 100 UNITS/ML VIAL SC SCH ×4 (09:05→22:11)
[2019-10-12] MEDS: INSULIN HUMAN NPH SC SCH ×2 (09:06→18:24)
--- NOTE | 2019-10-12 10:34 | Ultrasound Report ---
US arterial duplex LE BI CLINICAL HISTORY: Peripheral artery disease. Osteomyelitis. COMPARISON STUDY: No previous studies for comparison. FINDINGS: Ankle brachial indices were not possible due to noncompressible vessels. On the right, there was triphasic flow within the common femoral superficial femoral and popliteal ar mely. There was biphasic flow within the right anterior tibial and posterior tibial vessel. There is monophasic flow within the right peroneal artery. There is velocity elevation within the right dorsal is pedis. On the left there was triphasic flow within the left common femoral and superficial femoral arteries. There is triphasic flow within the left popliteal artery. There was monophasic flow within the left anterior tibial. There is a high velocity jet within the distal left anterior tibial artery consistent with stenosis. There is a velocity elevation within the left posterior tibial artery cons istent with a stenosis. There is monophasic flow within the left peroneal. IMPRESSION: 1. Diffuse atheromatous changes with no evidence of hemodynamically significant stenosis involving th e common femoral superficial femoral or popliteal arteries bilaterally 2. Right dorsalis pedis artery stenosis 3. Left posterior tibial artery and left anterior tibial artery distal stenoses. ACT 112: Negative or not required by law. Electronically signed by: Roderick Santiago M.D. 10/12/2019 10:32 AM
[2019-10-12] MEDS: SODIUM CHLORIDE 0.9% 1000ML 1,000 ML IV SCH ×2 (11:43→12:10)
[2019-10-12] MEDS: VANCOMYCIN HCL 1,250 MG in SODIUM CHLORIDE 0.9% 250 ML IV SCH (11:43)
--- NOTE | 2019-10-12 12:06 | Pharmacy Report ---
Pharmacy Glycemic Short Note 2 - Date of Service October 12, 2019 - Glycemic Short BSG Results (Last 24 hours): 10/11/19 10/11/19 10/11/19 12:01 12:12 17:05 Glucose POC Glucose 62 L* 79 212 H 10/11/19 10/12/19 10/12/19 20:29 02:55 05:25 Glucose 82 POC Glucose 245 H 88 10/12/19 10/12/19 05:27 08:14 Glucose POC Glucose 85 143 H ASSESSMENT: 10/11: * Patient received total of 209 units of insulin yesterday, of which 105 were basal insulin * Fasting BSG this Am 85 mg/dL - plan to scale back slightly with basal ~10-15% * Continue same CF/CR for now / may need tightened PLAN FOR INPATIENT GLYCEMIC CONTROL: * Hold outpatient oral diabetes medications * Basal insulin * NPH 45 units BIDM * Bolus insulin * NovoLog per scale ACHS or Q6hrs while NPO * Goal Range: Low 110 mg/dL - High 140 mg/dL * Correction Factor: 8 mg/dL/unit * Nutritional / Prandial insulin per carb ratio of 1 unit per 2 grams CHO consumed PLAN FOR DISCHARGE: * tbd
--- NOTE | 2019-10-12 13:29 | Podiatry Consultation ---
Date of Consultation October 12, 2019 Assessment & Plan (1) Acute renal failure superimposed on stage 3 chronic kidney disease: (2) Cellulitis of foot, left: (3) Diabetic infection of left foot: History of Present Illness Attending Physician: Mario Alberto Gore MD Patient seen at bedside today and was doing well - stated he had a vascular testing performed and he was very happy that it was being investigated. Wound dressing was removed and examined, slightly more maceration was noted around the wound but otherwise it was stable. I reapplied a dressing consisting of Allevyn foam. Allergies Allergy/AdvReac Type Severity Reaction Status Date / Time codeine Allergy Unknown RASH, Verified 10/10/19 16:14 VOMITING Penicillins Allergy Unknown RASH Verified 10/10/19 16:14 amoxicillin [From Augmentin] Allergy Vomiting Verified 10/10/19 16:14 ciprofloxacin [From Cipro] Allergy Hives Verified 10/10/19 16:14 clavulanic acid Allergy Vomiting Verified 10/10/19 16:14 [From Augmentin] exenatide [From Bydureon] Allergy . Verified 10/10/19 16:14 Home Medications Home Medications Medication Instructions Recorded Confirmed Type ascorbic acid (vitamin C) 500 mg 500 mg PO BID cap 01/20/19 10/10/19 History capsule clonazepam 1 mg tablet 1 mg PO TID #90 tab 01/20/19 10/10/19 History xdekgdxr-qtk-ozmjc acid 0.4 1 tab PO QAM 01/20/19 10/10/19 History mg-lycopene 300 mcg-lutein 250 mcg tablet sertraline 100 mg tablet 100 mg PO HS 01/20/19 10/10/19 History aspirin 325 mg tablet,delayed 325 mg PO DAILY tab 05/22/19 10/10/19 History release acetaminophen [Tylenol Extra 1,000 mg PO Q8H PRN 09/15/19 10/10/19 History Strength] temazepam 30 mg PO HS 09/30/19 10/10/19 History celecoxib 200 mg capsule 200 mg PO DAILY #90 cap 10/03/19 10/10/19 Rx cyclobenzaprine 5 mg tablet 5 mg PO TID PRN #90 tab 10/03/19 10/10/19 Rx fenofibrate 160 mg tablet 160 mg PO HS #90 tab 10/03/19 10/10/19 Rx gabapentin 800 mg tablet 800 mg PO TID #90 tab 10/03/19 10/10/19 Rx insulin regular hum U-500 conc 100 unit SQ TIDM #6 ml 10/03/19 10/10/19 Rx lisinopril 20 mg tablet 20 mg PO HS #90 tab 10/03/19 10/10/19 Rx pravastatin 40 mg tablet 40 mg PO HS #90 tab 10/03/19 10/10/19 Rx albuterol sulfate 2.5 mg INH Q8H PRN #180 ml 10/04/19 10/10/19 Rx azelastine 137 mcg (0.1 %) nasal 2 sprays INTNAS BID #30 ml 10/09/19 10/10/19 Rx spray aerosol chlorpheniramine maleate 4 mg 4 mg PO Q12H PRN #60 tab 10/09/19 10/10/19 Rx tablet dulaglutide 0.75 mg/0.5 mL 0.75 mg SQ WEEKLY #2 ml 10/09/19 10/10/19 Rx subcutaneous pen injector Patient History Medical History Anxiety (Chronic) Asthma (Acute) COPD (chronic obstructive pulmonary disease) (Chronic) Depression (Acute) Diabetes (Chronic) Hyperlipidemia (Chronic) Hypertension (Chronic) Insomnia (Acute) Irritable bowel syndrome (IBS) (Acute) Lumbar radiculopathy (Acute) Macular degeneration (Acute) Obese (Acute) PTSD (post-traumatic stress disorder) (Chronic) Type 2 diabetes, uncontrolled, with neuropathy (Chronic) Surgical History History of amputation left 5th toe -09/06/19 at [facility] History of back surgery History of tonsillectomy Hx of tooth extraction Family History Mother , 57 Cancer Cervical cancer Esophageal cancer Father Myocardial infarction Colon cancer Sister , 53 AML (acute myelogenous leukemia) Stroke Scleroderma Sister Fibrocystic breast disease Sister Anxiety Anorexia nervosa Denies family history of Ovarian cancer Prostate cancer Breast cancer Social History Preferred Language: Azeri Communication Ability: Effective Visual Impairment: No Limitations Hearing Ability: Normal Shipping Clerk Required: No Beliefs That Will Affect Care: None marital status: Life Partner Current Living Situation: Spouse current occupational status: retired Other Information That Helps Us Care for You: No Feels Safe at Home: Yes Safety Concerns: Feels Safe At This Time Smoking Status: Former smoker Tobacco Type: cigarettes ; Age Started Using Tobacco: 26 ; Age Quit Using Tobacco: 37 ; Cigarettes Per Day: Social smoker 1 pk lasted 1 month ; Do You Dip or Chew Tobacco: No ; Second Hand Exposure: No ; Hx Alcohol Use: No Hx Substance Use: No Childhood Exposure to Second-Hand Smoke: Yes Dental Care, Regularly: Yes Seatbelt Use: always Sunscreen Use: Yes Physical Exam Skin: stable ulcer with some maceration around periphery and extensor tendons present in the setting of diabetes and pad - vascular surgery was consulted. Results & Data Vital Signs (Past 12 Hours) Vital Signs Temp Pulse Resp BP Pulse Ox 10/12/19 08:13 75 14 98 10/12/19 07:00 36.7 C 74 19 119/69 97
--- NOTE | 2019-10-12 14:30 | Consultation ---
Date of Consultation October 12, 2019 Assessment & Plan (1) Peripheral arterial disease: Pt with PAD noted on US and infected LLE wound with possible osteomyelitis by MRI. After discussion with Dr Murray, recommends pt undergo LLE angio with possible intervention in OR tomorrow. Pt agreeable. LLE wound care per podiatry and primary care. Patient was seen, examined, and chart reviewed. Agree with exam and treatment plan of the Vascular PA. I have discussed the risks options and benefits of the procedure with the patient. The patient understands the risks options and benefits and agrees to the procedure. Thank you very much for letting us participate in the care of this patient. History of Present Illness Reason for Consultation: LLE PAD Attending Physician: Mario Alberto Gore MD History of Present Illness 64 yo m with multiple medical problems including DMII, PTSD, asthma, htn, hyperlipidemia, IBS, and lumbar radiculopathy, admitted with L foot wound infection, seen in consultation today for PAD noted on US. Pt states he developed LLE foot wound approx 6-8 weeks ago after dropping a couch on it and was seen at [facility] for an infection in the foot and underwent amputation of 5th toe. Was on IV vancomycin for a few weeks, then this was d/c. Noted increased edema, erythema, odor from L foot a few days prior to admission and sought care. MRI upon admission indicated possible early osteomyelitis. Admits elevated blood glucose, general malaise. Denies measured fever, chest pain, SOB, abd pain, N/V, rest pain, hx of claudication, other complaints. Arterial US BLE indicates triphasic/biphasic flow RLE and triphasic flow LLE to pop, with single vessel monophasic runoff to L foot. Allergies Allergy/AdvReac Type Severity Reaction Status Date / Time codeine Allergy Unknown RASH, Verified 10/10/19 16:14 VOMITING Penicillins Allergy Unknown RASH Verified 10/10/19 16:14 amoxicillin [From Augmentin] Allergy Vomiting Verified 10/10/19 16:14 ciprofloxacin [From Cipro] Allergy Hives Verified 10/10/19 16:14 clavulanic acid Allergy Vomiting Verified 10/10/19 16:14 [From Augmentin] exenatide [From Bydureon] Allergy . Verified 10/10/19 16:14 Home Medications Home Medications Medication Instructions Recorded Confirmed Type ascorbic acid (vitamin C) 500 mg 500 mg PO BID cap 10/18/19 07/07/20 History capsule clonazepam 1 mg tablet 1 mg PO TID #90 tab 01/20/19 10/10/19 History spudnwqm-qha-msjru acid 0.4 1 tab PO QAM 01/20/19 10/10/19 History mg-lycopene 300 mcg-lutein 250 mcg tablet sertraline 100 mg tablet 100 mg PO HS 01/20/19 10/10/19 History aspirin 325 mg tablet,delayed 325 mg PO DAILY tab 05/22/19 10/10/19 History release acetaminophen [Tylenol Extra 1,000 mg PO Q8H PRN 09/15/19 10/10/19 History Strength] temazepam 30 mg PO HS 09/30/19 10/10/19 History celecoxib 200 mg capsule 200 mg PO DAILY #90 cap 10/03/19 10/10/19 Rx cyclobenzaprine 5 mg tablet 5 mg PO TID PRN #90 tab 10/03/19 10/10/19 Rx fenofibrate 160 mg tablet 160 mg PO HS #90 tab 10/03/19 10/10/19 Rx gabapentin 800 mg tablet 800 mg PO TID #90 tab 10/03/19 10/10/19 Rx insulin regular hum U-500 conc 100 unit SQ TIDM #6 ml 10/03/19 10/10/19 Rx lisinopril 20 mg tablet 20 mg PO HS #90 tab 10/03/19 10/10/19 Rx pravastatin 40 mg tablet 40 mg PO HS #90 tab 10/03/19 10/10/19 Rx albuterol sulfate 2.5 mg INH Q8H PRN #180 ml 10/04/19 10/10/19 Rx azelastine 137 mcg (0.1 %) nasal 2 sprays INTNAS BID #30 ml 10/09/19 10/10/19 Rx spray aerosol chlorpheniramine maleate 4 mg 4 mg PO Q12H PRN #60 tab 10/09/19 10/10/19 Rx tablet dulaglutide 0.75 mg/0.5 mL 0.75 mg SQ WEEKLY #2 ml 10/09/19 10/10/19 Rx subcutaneous pen injector Patient History Medical History (Updated 10/12/19 @ 14:28 by Caitlin Khanna PA-C) Anxiety (Chronic) Asthma (Acute) COPD (chronic obstructive pulmonary disease) (Chronic) Depression (Acute) Diabetes (Chronic) Hyperlipidemia (Chronic) Hypertension (Chronic) Insomnia (Acute) Irritable bowel syndrome (IBS) (Acute) Lumbar radiculopathy (Acute) Macular degeneration (Acute) Obese (Acute) Peripheral arterial disease PTSD (post-traumatic stress disorder) (Chronic) Type 2 diabetes, uncontrolled, with neuropathy (Chronic) Surgical History History of amputation left 5th toe -09/06/19 at [facility] History of back surgery History of tonsillectomy Hx of tooth extraction Family History Mother , 57 Cancer Cervical cancer Esophageal cancer Father Myocardial infarction Colon cancer Sister , 53 AML (acute myelogenous leukemia) Stroke Scleroderma Sister Fibrocystic breast disease Sister Anxiety Anorexia nervosa Denies family history of Ovarian cancer Prostate cancer Breast cancer Social History Preferred Language: Slovenian Communication Ability: Effective Visual Impairment: No Limitations Hearing Ability: Normal Mold Maker Helper Required: No Beliefs That Will Affect Care: None marital status: Life Partner Current Living Situation: Spouse current occupational status: retired Feels Safe at Home: Yes Smoking Status: Former smoker Tobacco Type: cigarettes ; Age Started Using Tobacco: 26 ; Age Quit Using Tobacco: 37 ; Cigarettes Per Day: Social smoker 1 pk lasted 1 month ; Second Hand Exposure: No ; Hx Alcohol Use: No Hx Substance Use: No Childhood Exposure to Second-Hand Smoke: Yes Dental Care, Regularly: Yes Seatbelt Use: always Sunscreen Use: Yes Review of Systems Review of Systems: All systems reviewed & are unremarkable except as noted in HPI & below Physical Exam Constitutional: WD/WN, vitals as above + morbidly obese and healthy appearing; not in distress Eyes: PERRL, conjunctivae normal, anicteric sclerae ENMT: external ear and nose normal, oropharynx normal Ears: no hearing impairment Neck: normal visual inspection Respiratory: normal respiratory effort, lungs clear to auscultation Cardiovascular: RRR, no murmur, no edema Vessels: femoral pulses present, dorsalis pedis pulses present (+1 RLE, nonpalpable LLE.) and radial pulses present; + abnormal peripheral pulses and + posterior tibial pulses abnormal (nonpalpable BLE) Extremities: normal capillary refill; no edema Gastrointestinal (Abdomen): normal bowel sounds, soft, nontender, no hepatosplenomegaly Musculoskeletal: no cyanosis or clubbing, extremities motor strength 5/5 Skin: no rashes, warm and dry + wound (L lateral foot deep wound, visible muscle. no draiange or odor noted) Neurologic: moves all extremities and awake; no focal motor deficits and not confused Psychiatric: Orientation: alert and oriented x 3 Eye Contact: good eye contact Affect: + anxious affect Results & Data Vital Signs (Past 12 Hours) Vital Signs Temp Pulse Resp BP Pulse Ox 10/12/19 08:13 75 14 98 10/12/19 07:00 36.7 C 74 19 119/69 97
--- NOTE | 2019-10-12 18:42 | Hospitalist Progress Note ---
Date of Service October 12, 2019 Assessment & Plan (1) Acute osteomyelitis of left foot: New osteomyelitis from a nonhealing wound on his left foot after left fifth digit amputation on September 05 Possible early osteomyelitis of fifth metatarsal visible on MRI Continue Flagyl, cefepime, and vancomycin Blood cultures drawn x2 - ngtd Podiatry consulted - recommend vascular consult to assist in characterizing patient's PAD Vascular consult - patient for LLE angio with possible intervention in the OR tomorrow. Patient is generally able to walk and garden with a cane but functional capacity is somewhat hard to assess given his inability to walk well with his foot wound. He is an uncontrolled diabetic and has COPD. No evidence of exacerbation. RCRI is 6% but given his inability to heal his foot wound without revascularization benefits likely outweigh risks. Patient does have a new heart murmur 05/11, no symptoms. Denies any angina. No cardiac history. EKG 09/28 Sinus rhythm with 1st degree A-V block. Electrolytes wnl (2) Cellulitis of foot, left: As above (3) Diarrhea: Likely secondary to prolonged antibiotic administration, c diff negative at last visit Continue probiotics (4) Acute renal failure superimposed on stage 3 chronic kidney disease: FADI resolved Avoid nephrotoxins where possible (5) Heart murmur: Patient reports a provider recently commented on hearing this as well. He reports an echo recently but I do not see one in our records. BC are pending Could consider an echo if patient is to go to surgery and anesthesia prefers one prior but at this point patient is not symptomatic so will recommend follow up with pcp (6) Type 2 diabetes, uncontrolled, with neuropathy: Last A1c 10.6 Pharmacy consulted for glycemic management - patient with significant insulin doses and hyperglycemia (7) Depression: Continue sertraline (8) COPD (chronic obstructive pulmonary disease): Stable, no changes to home regimen albuterol PRN Non smoker (9) Hyperlipidemia: Continuing fenofibrate and statin (10) DVT prophylaxis: Lovenox Admission and Anticipated Discharge Date Admission Date: October 10, 2019 Subjective Mr. Villa is feeling much better today. He has minimal discomfort in his foot. He otherwise has no symptoms ROS Constitutional: no chills, aches, sweats or fever Respiratory: no sob,cough, sputum, or wheezing Cardiac: no chest pain, palpitations, edema, orthopnea or lightheadedness GI: no abdominal pain, nausea, vomiting, diarrhea or constipation : no dysuria or hesitancy Extremities: no joint pain or weakness Skin: no rash All other systems reviewed and negative Physical Exam Physical Exam: General: no distress Eyes: normal inspection, PERLL Respiratory: chest non tender, clear to auscultation, normal breath sounds, no respiratory distress, no accessory muscle use Cardiac: regular rate and rhythm, no rub or gallop, systolic murmur 2/6, no edema, no jvd GI/: active bowel sounds, no abd pain or tenderness, soft, non distended Extremities: normal range of motion, normal strength, non tender Neuro/Psych: alert and oriented x 3, normal mood and affect Skin: normal color, dry Results & Data Results & Data ([facility]) Vital Signs (Past 12 Hours) Vital Signs Temp Pulse Resp BP Pulse Ox 10/12/19 08:13 75 14 98 10/12/19 07:00 36.7 C 74 19 119/69 97 PG Care Time/CCT Total # of Minutes Spent Total Time Spent with Patient: Total time spent is greater than 50% in coordination of care (as documented) at patient's floor/unit and/or counseling patient: Coding Level of Care Code 01199 Subseq Hosp Care Lvl 3 Diagnoses Acute osteomyelitis of left foot M86.172 Cellulitis of foot, left L03.116 Diarrhea R19.7 Diarrhea type: unspecified type Acute renal failure superimposed on stage 3 chronic kidney disease N17.9; N18.3 Heart murmur R01.1 Type 2 diabetes, uncontrolled, with neuropathy E11.40; E11.65 Depression F32.9 COPD (chronic obstructive pulmonary disease) J44.9 COPD type: unspecified COPD Hyperlipidemia E78.5 Hyperlipidemia type: unspecified DVT prophylaxis Z29.9 (1) Diarrhea Diarrhea type: unspecified type Qualified Code(s): R19.7 - Diarrhea, unspecified (2) COPD (chronic obstructive pulmonary disease) COPD type: unspecified COPD Qualified Code(s): J44.9 - Chronic obstructive pulmonary disease, unspecified (3) Hyperlipidemia Hyperlipidemia type: unspecified Qualified Code(s): E78.5 - Hyperlipidemia, unspecified
[2019-10-12] MEDS: TEMAZEPAM 15 MG CAPSULE PO SCH (21:33)
[2019-10-12] MEDS: PRAVASTATIN SOD 40 MG TAB PO SCH (21:34)
[2019-10-12] MEDS: SERTRALINE HCL 100 MG TABLET PO SCH (21:38)
[2019-10-12] MEDS: lisinopriL 20 MG TAB PO SCH (21:38)
[2019-10-13] MEDS: CEFEPIME 2,000 MG in SYRINGE 7.5 ML IV SCH ×2 (00:24→08:36)
[2019-10-13] MEDS: VANCOMYCIN HCL 1,250 MG in SODIUM CHLORIDE 0.9% 250 ML IV SCH ×2 (00:32→14:39)
[2019-10-13] MEDS: TRAMADOL HCL 50 MG TABLET PO PRN ×2 (01:07→10:59)
[2019-10-13] MEDS: metroNIDAZOLE 500 MG/100 ML BAG IV SCH ×2 (01:08→08:33)
[2019-10-13] MEDS: SODIUM CHLORIDE 0.9% 1000ML 1,000 ML IV SCH ×2 (01:08→17:15)
--- NOTE | 2019-10-13 02:26 | Pharmacy Report ---
Pharmacy Abx Dose Short Note - Date of Service October 13, 2019 - Assessment & Plan Assessment 64 year old M receiving vancomycin/cefepime/Flagyl for treatment of ostemyleitis Day # 3 of antimicrobial therapy. Plan Vancomycin * Trough level of 10 mcg/mL is subtherapeutic HOWEVER is drawn prior to steady state. This was drawn prior to third dose but second dose was 2 hours late. * Continue dose of 1250 mg IV every 12 hours as expect accumulation due to body habitus. * Goal trough level for osteomyelitis : 15 to 20 mcg/mL * Trough to be drawn based upon clinical picture Pharmacy will continue to follow and will adjust dose/frequency as necessary. Thank you.
[2019-10-13 06:06] LABS: Basophils # (auto) 0.03 K/uL (0-0.2); Basophils % (auto) 0.5 %; Eosinophils # (auto) 0.17 K/uL (0-0.5); Eosinophils % (auto) 2.8 %; Hemoglobin 13.2 g/dL (14.0-18.0); Immature Granulocytes # (auto) 0.01 K/uL (0.00-0.02); Immature Granulocytes % (auto) 0.2 %; Lymphocytes # (auto) 2.02 K/uL (1.2-3.4); Lymphocytes % (auto) 33.7 %; Mean Corpuscular Hemoglobin 27.7 pg (25-34); Mean Corpuscular Hgb Conc 31.4 g/dL (32-36); Mean Corpuscular Volume 88.1 fL (80-100); Mean Platelet Volume 9.5 fL (7.4-10.4); Monocytes # (auto) 0.59 K/uL (0.11-0.59); Monocytes % (auto) 9.8 %; Neutrophils # (auto) 3.17 K/uL (1.4-6.5); Platelet Count 151 K/uL (130-400); RDW Coefficient of Variation 13.7 % (11.5-14.5); RDW Standard Deviation 44.3 fL (36.4-46.3); Red Blood Count 4.77 M/uL (4.7-6.1); White Blood Count 5.99 K/uL (4.8-10.8)
[2019-10-13 06:40] LABS: BUN Creatinine Ratio 12.9 (10-20); Calcium 8.7 mg/dl (8.5-10.1); Creatinine Clr Calc Pharmacy 93.7 ml/min; Est GFR (African American) 82.1; Est GFR (Non-African American) 70.9; Potassium 3.9 mmol/L (3.5-5.1)
[2019-10-13] MEDS ORDERED: Nursing to Pharmacy Communication SCH ×2 (07:15→14:45)
[2019-10-13] MEDS: ALBUTEROL 0.083% NEBU SOLN 3 ML VIAL INH PRN (07:54)
[2019-10-13] MEDS ORDERED: INSULIN HUMAN NPH SC SCH ×2 (08:00→09:00)
[2019-10-13] MEDS: ASCORBIC ACID 500 MG TAB PO SCH ×2 (08:32→22:23)
[2019-10-13] MEDS: MULTIVITAMIN TAB PO SCH (08:32)
[2019-10-13] MEDS: SACCHAROMYCES BOULARDII 250 MG CAP PO SCH (08:32)
[2019-10-13] MEDS: GABAPENTIN 800 MG TAB PO SCH ×3 (08:32→22:23)
[2019-10-13] MEDS: SIMETHICONE 80 MG CHEW PO SCH ×3 (08:33→17:13)
[2019-10-13] MEDS: INSULIN ASPART 100 UNITS/ML VIAL SC SCH ×4 (09:56→22:29)
--- NOTE | 2019-10-13 11:22 | Pharmacy Report ---
Pharmacy Glycemic Short Note 2 - Date of Service October 13, 2019 - Glycemic Short BSG Results (Last 24 hours): 10/12/19 10/12/19 10/12/19 12:01 17:10 20:43 Glucose POC Glucose 236 H 97 115 H 10/13/19 05:42 Glucose 115 H POC Glucose ASSESSMENT: 10/12: * Patient received total of 172 units of insulin yesterday, of which 90 were basal insulin * Patient NPO this am for angiogram, fasting 115 mg/dL - reduced NPH by ~30% to 30 units, however patient refusing dose. Okay with lower dosing of 20 units for this AM * BSGs yesterday much improved - loosen CF this AM * Plan on scale for NPH for dinner 10/11: * Patient received total of 209 units of insulin yesterday, of which 105 were basal insulin * Fasting BSG this Am 85 mg/dL - plan to scale back slightly with basal ~10-15% * Continue same CF/CR for now / may need tightened PLAN FOR INPATIENT GLYCEMIC CONTROL: * Hold outpatient oral diabetes medications * Basal insulin * NPH 20 units this AM (npo) * NPH 35-45 at dinner based upon BSG scale * Bolus insulin * NovoLog per scale ACHS or Q6hrs while NPO * Goal Range: Low 110 mg/dL - High 140 mg/dL * Correction Factor: 10 mg/dL/unit * Nutritional / Prandial insulin per carb ratio of 1 unit per 2 grams CHO consumed PLAN FOR DISCHARGE: * A1C on 09/30 was 10.6% (goal <7%) * This A1C is a decrease from prior A1C of 11.1 in June 2019 * DM educator in to talk with patient. Encourage modification in diet/lower carb meals. Patient seems to be willing to get back on track with diet, had lapsed during COVID outbreak with eating habits. Discussion about following Endo provider closer to where patient lives for outpatient management. * Would continue home diabetes regimen for now, however would encourage that patient does follow Endo provider for further insulin management/adjustment outpatient.
[2019-10-13] MEDS ORDERED: INSULIN ASPART 100 UNITS/ML VIAL SC SCH (12:00)
--- NOTE | 2019-10-13 12:13 | History & Physical Bridge Note ---
Date of Service October 13, 2019 History & Physical Bridge Note Patient for a left lower extremity arteriogram with possible intervention. I have discussed the risks options and benefits of the procedure with the patient. The patient understands the risks options and benefits and agrees to the procedure. I have examined the patient, reviewed the History & Physical and in the interval since the performance of the History & Physical I have noted the following changes of clinical significance: no changes noted
--- NOTE | 2019-10-13 12:55 | Podiatry Consultation ---
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 Allergies Allergy/AdvReac Type Severity Reaction Status Date / Time codeine Allergy Unknown RASH, Verified 10/10/19 16:14 VOMITING Penicillins Allergy Unknown RASH Verified 10/10/19 16:14 amoxicillin [From Augmentin] Allergy Vomiting Verified 10/10/19 16:14 ciprofloxacin [From Cipro] Allergy Hives Verified 10/10/19 16:14 clavulanic acid Allergy Vomiting Verified 10/10/19 16:14 [From Augmentin] exenatide [From Bydureon] Allergy . Verified 10/10/19 16:14 Home Medications Home Medications Medication Instructions Recorded Confirmed Type ascorbic acid (vitamin C) 500 mg 500 mg PO BID cap 01/20/19 10/10/19 History capsule clonazepam 1 mg tablet 1 mg PO TID #90 tab 01/20/19 10/10/19 History rqhnipbn-uiu-upvqq acid 0.4 1 tab PO QAM 01/20/19 10/10/19 History mg-lycopene 300 mcg-lutein 250 mcg tablet sertraline 100 mg tablet 100 mg PO HS 01/20/19 10/10/19 History aspirin 325 mg tablet,delayed 325 mg PO DAILY tab 05/22/19 10/10/19 History release acetaminophen [Tylenol Extra 1,000 mg PO Q8H PRN 09/15/19 10/10/19 History Strength] temazepam 30 mg PO HS 09/30/19 10/10/19 History celecoxib 200 mg capsule 200 mg PO DAILY #90 cap 10/03/19 10/10/19 Rx cyclobenzaprine 5 mg tablet 5 mg PO TID PRN #90 tab 10/03/19 10/10/19 Rx fenofibrate 160 mg tablet 160 mg PO HS #90 tab 10/03/19 10/10/19 Rx gabapentin 800 mg tablet 800 mg PO TID #90 tab 10/03/19 10/10/19 Rx insulin regular hum U-500 conc 100 unit SQ TIDM #6 ml 10/03/19 10/10/19 Rx lisinopril 20 mg tablet 20 mg PO HS #90 tab 10/03/19 10/10/19 Rx pravastatin 40 mg tablet 40 mg PO HS #90 tab 10/03/19 10/10/19 Rx albuterol sulfate 2.5 mg INH Q8H PRN #180 ml 10/04/19 10/10/19 Rx azelastine 137 mcg (0.1 %) nasal 2 sprays INTNAS BID #30 ml 10/09/19 10/10/19 Rx spray aerosol chlorpheniramine maleate 4 mg 4 mg PO Q12H PRN #60 tab 10/09/19 10/10/19 Rx tablet dulaglutide 0.75 mg/0.5 mL 0.75 mg SQ WEEKLY #2 ml 10/09/19 10/10/19 Rx subcutaneous pen injector Patient History Medical History (Updated 10/12/19 @ 14:28 by Caitlin Khanna PA-C) Anxiety (Chronic) Asthma (Acute) COPD (chronic obstructive pulmonary disease) (Chronic) Depression (Acute) Diabetes (Chronic) Hyperlipidemia (Chronic) Hypertension (Chronic) Insomnia (Acute) Irritable bowel syndrome (IBS) (Acute) Lumbar radiculopathy (Acute) Macular degeneration (Acute) Obese (Acute) Peripheral arterial disease PTSD (post-traumatic stress disorder) (Chronic) Type 2 diabetes, uncontrolled, with neuropathy (Chronic) Surgical History History of amputation left 5th toe -09/06/19 at [facility] History of back surgery History of tonsillectomy Hx of tooth extraction Family History Mother , 57 Cancer Cervical cancer Esophageal cancer Father Myocardial infarction Colon cancer Sister , 53 AML (acute myelogenous leukemia) Stroke Scleroderma Sister Fibrocystic breast disease Sister Anxiety Anorexia nervosa Denies family history of Ovarian cancer Prostate cancer Breast cancer Social History Preferred Language: Ethiopian Communication Ability: Effective Visual Impairment: No Limitations Hearing Ability: Normal Workplace Rehabilitation Officer Required: No Beliefs That Will Affect Care: None marital status: Life Partner Current Living Situation: Spouse current occupational status: retired Feels Safe at Home: Yes Smoking Status: Former smoker Tobacco Type: cigarettes ; Age Started Using Tobacco: 26 ; Age Quit Using Tobacco: 37 ; Cigarettes Per Day: Social smoker 1 pk lasted 1 month ; Second Hand Exposure: No ; Hx Alcohol Use: No Hx Substance Use: No Childhood Exposure to Second-Hand Smoke: Yes Dental Care, Regularly: Yes Seatbelt Use: always Sunscreen Use: Yes Results & Data Vital Signs (Past 12 Hours) Vital Signs Temp Pulse Resp BP Pulse Ox 10/13/19 12:32 36.8 C 81 22 176/91 H 98 10/13/19 07:55 70 16 98 10/13/19 07:45 37.1 C 72 17 137/86 97
[2019-10-13] MEDS ORDERED: HEPARIN SOD (PORCINE) 1000 UNIT/ML 10 ML VIAL ONE (12:58)
--- NOTE | 2019-10-13 12:58 | Pre Anesthesia Assessment ---
Date of Service October 13, 2019 Pre Sedation Assessment Vital Signs Temp Pulse Resp BP Pulse Ox 10/13/19 12:32 36.8 C 81 22 176/91 H 98 10/13/19 07:55 70 16 98 10/13/19 07:45 37.1 C 72 17 137/86 97 10/12/19 23:48 36.8 C 84 14 155/77 H 99 10/12/19 15:10 37.0 C 73 16 136/77 98 Cardiovascular RRR, no murmur, no edema Respiratory normal respiratory effort, lungs clear to auscultation Pre-Sedation Airway Assessment Smoking Status: Former smoker Hx Sleep Apnea: No Short, Thick Neck: No Thyromental Distance: > or= 3.5 Finger Breadths Oral Cavity: + Chipped Teeth and + WNL Mallampati Class: II ASA: ASA3 NPO Status Date of Last Intake of Fluids: 10/13/19 Time of Last Intake of Fluids: 11:00 Date of Last Intake of Solid Food: 10/12/19 Time of Last Intake of Solid Foods: 17:00 Procedure Planning Contraindications for Sedation: none Current Medications Reviewed: Yes Notes The planned sedation has been discussed with the patient. Informed Consent was obtained. I have identified the patient, determined the appropriateness of sedation and have assessed the patient immediately prior to the procedure. All medicine(s) and interventions are by my order.
[2019-10-13] MEDS ORDERED: fentaNYL citrate 100 MCG/2 ML VIAL ONE (12:59)
[2019-10-13] MEDS ORDERED: MIDAZOLAM HCL 1 MG/ML 2ML VIAL ONE (12:59)
[2019-10-13] MEDS ORDERED: ONDANSETRON INJ 2 MG/ML 2 ML VIAL ONE (13:43)
[2019-10-13] MEDS ORDERED: VISIPAQUE IV PRN (13:43)
[2019-10-13] MEDS ORDERED: LIDOCAINE HCL 1% 20 ML VIAL INJ PRN (13:43)
--- NOTE | 2019-10-13 14:17 | Post Operative Brief Note ---
Immediate Post Op Note v1 Date of Surgery October 13, 2019 Pre & Post Diagnosis Operation Date: 10/13/19 11:05 Pre-Op Diagnosis: Osteomyelitis Peripheral arterial disease Post-Op Diagnosis: Osteomyelitis Peripheral arterial disease I identified the patient and participated in the time-out.: Yes Procedure Operation Date: 10/13/19 11:05 Actual Procedures p Left Lower Extremity Angiogram, Balloon Angioplasty Left Anterior Tibial Artery, Mechanical Closure Right Femoral Artery with Conscious Sedation ([id number])(Not Applicable) - Luisito Murray MD Surgeon Luisito Murray MD Photographer'S Model MD Burt Estimated Blood Loss 10 Findings Consistent with Post-Op Diagnosis Anesthesia Type RN Sedation Complications none Disposition Accompanied Patient To Recovery: No Disposition: Recovery Room
--- NOTE | 2019-10-13 14:19 | Operative Report ---
Post Operative Report Pre & Post Diagnosis Operation Date: 10/13/19 11:05 Pre-Op Diagnosis: Osteomyelitis Peripheral arterial disease Post-Op Diagnosis: Osteomyelitis Peripheral arterial disease I identified the patient and participated in the time-out.: Yes Procedure Operation Date: 10/13/19 11:05 Actual Procedures p Left Lower Extremity Angiogram, Balloon Angioplasty Left Anterior Tibial Artery, Mechanical Closure Right Femoral Artery with Conscious Sedation(Not Applicable) - Luisito Murray MD Surgeon Mildred Murray MD Special Agent In Charge Casey Whiteside MD Estimated Blood Loss 10 Findings See Below Fluids Crystalloid Specimens None Drains None Anesthesia Type MAC Complications none Disposition Accompanied Patient To Recovery: No Disposition: PCU Indications 64 y/o M with a non-healing wound of the LLE as well as claudication had ultrasound imaging suggestive of left lower extremity arterial narrowing. He is an appropriate candidate for a diagnostic and therapeutic left lower extremity angiogram. Description of Procedure Patient was brought to the operating room and put on the operating room table in a supine position with his arms to his sides. He was prepped and draped in a normal sterile fashion. A timeout was called and the patient was identified. Ultrasound was used to identify the common femoral artery in the right groin. The artery was shown to be patent. Local anesthetic was used to numb the groin. Ultrasound guided entry into the common femoral artery was performed. A 035 guidewire was used to enter the artery. A 5 Indian sheath was placed and a rim catheter was then used to cross into the left iliac artery artery. Art eriography was performed of the left lower extremity. This showed the common femoral from the femoral superficial femoral popliteal arteries to be widely patent. There is three-vessel runoff to the foot. This demonstrated a lesion in the anterior tibial artery as well as the posterior tibial artery. The posterior tibial lesion had excellent outflow past the point of the lesion which had a proximally 70 % narrowing. The anterior tibial artery in the distal third had a short total occlusion. We then inserted a stiffened Glidewire into the rim catheter. The rim catheter was removed. The 5 Indian sheath was exchanged for a 6 Indian destination. We then used a quick cross catheter and an angled 035 Glidewire to get into the anterior tibials artery. The Lesion was again noted and a 014 guidewire was used to cross the lesion. At this point we passed a 3 x 4 balloon over top of the wire through the area of the lesion. The balloon was inflated and angioplasty was performed. After 1 inflation the lesion was much improved and the balloon was removed. A completion angiogram was performed and showed improved flow with no residual stenosis.. The PT and DP were shown to provide good flow across the ankle. The wire and catheter were removed. Arteriography of the right femoral artery showed the puncture site to be anterior in the common femoral artery. A star close device was then used to close the puncture in the right groin. The procedure was performed without complication.The patient left the operation room in satisfactory condition and tolerated the procedure well. All needle and sponge counts were correct at the end of the procedure. Dr. Murray was present and scrubbed for the entire procedure. I attest to the content of the Intraoperative Record and any orders documented therein. Any exceptions are noted below.
--- NOTE | 2019-10-13 14:23 | Post Anesthesia Assessment ---
Date of Service October 13, 2019 Post Sedation Assessment Vital Signs Temp Pulse Pulse Resp BP Pulse Ox 10/13/19 14:16 73 14 149/92 H 94 10/13/19 14:11 75 15 157/91 H 92 10/13/19 14:10 76 13 153/83 H 94 10/13/19 14:05 78 12 156/86 H 96 10/13/19 14:00 81 14 162/87 H 96 10/13/19 13:55 80 21 171/99 H 98 10/13/19 13:50 79 19 172/99 H 98 10/13/19 13:45 82 15 164/93 H 98 10/13/19 13:40 81 17 176/99 H 98 10/13/19 13:35 81 20 172/97 H 98 10/13/19 13:30 80 17 157/96 H 97 10/13/19 13:25 82 17 163/92 H 96 10/13/19 13:20 83 12 165/105 H 99 10/13/19 13:15 82 17 182/93 H 99 10/13/19 13:10 92 H 16 176/90 H 99 10/13/19 12:32 36.8 C 81 22 176/91 H 98 10/13/19 07:55 70 16 98 10/13/19 07:45 37.1 C 72 17 137/86 97 10/12/19 23:48 36.8 C 84 14 155/77 H 99 10/12/19 15:10 37.0 C 73 16 136/77 98 Recovery Score Activity: Moves 4 extremities Respiration: Deep Breath/Cough Circulation: +/-20% PreAnes Value Consciousness: Fully Awake Oxygen Saturation: > 92% On Room Air Post Anesthesia Score: 10 Discharge Sedation Level of Care: Fast Track Phase II Post Sedation Plan On clinical assessment, the patient appears to have tolerated the sedation without complications. Patient is recovering as anticipated. Patient will continue to be monitored by nursing and may be discharged when sedation discharge criteria are met per below protocol. Upon Completions of procedure up to 15 minutes continue every 5 minute vital signs and the P.A.R. score; then discharge to a Phase I or Fast Track to Phase II per the following guidelines: * Discharge Patient to appropriate Phase II area if PAR is 8 or greater or return to pre- procedure baseline. The post - procedure orders will be as directed. * If PAR score is less than 8 or not return to pre-procedure baseline then patient will follow Phase I monitoring till PAR is reached for Phase II. The Phase I may be done in procedure room or may call to secure a Phase I area. * If naloxone or flumazenil are used for reversal, hold in Phase I for continued monitoring from when last reversal dose was given for a minimum of 60 minutes or longer pending the nurse and/or physician discretion of patient condition before discharge to Phase II. Please call the Sedation Physician to re-evaluate and complete post-note for discharge to Phase II area. Do NOT discharge from procedure sedation or Phase 1 until post- sedation evaluation note is complete by procedure /sedation MD Sedation Discharge Instructions to be given to the patient at discharge to home.
[2019-10-13] MEDS ORDERED: DAPTOMYCIN CONSULT ACTIVE PRN (15:34)
[2019-10-13] MEDS: INSULIN HUMAN NPH SC SCH (17:38)
--- NOTE | 2019-10-13 17:56 | Hospitalist Progress Note ---
Date of Service October 13, 2019 Assessment & Plan (1) Acute osteomyelitis of left foot: New osteomyelitis from a nonhealing wound on his left foot after left fifth digit amputation on September 05 Possible early osteomyelitis of fifth metatarsal visible on MRI Continue Daptomycin - patient growing oxacillin resistant coag negative staph from wound culture. Will need six weeks of treatment Blood cultures drawn x2 - ngtd Podiatry consulted - recommend vascular consult to assist in characterizing patient's PAD Vascular consult - patient taken to OR today for angio (2) Cellulitis of foot, left: As above (3) Diarrhea: Likely secondary to prolonged antibiotic administration, c diff negative at last visit Continue probiotics (4) Acute renal failure superimposed on stage 3 chronic kidney disease: FADI resolved Avoid nephrotoxins where possible (5) Heart murmur: Follow up with pcp (6) Type 2 diabetes, uncontrolled, with neuropathy: Last A1c 10.6 Pharmacy consulted for glycemic management - patient with significant insulin doses and hyperglycemia (7) Depression: Continue sertraline (8) COPD (chronic obstructive pulmonary disease): Stable, no changes to home regimen albuterol PRN Non smoker (9) Hyperlipidemia: Continuing fenofibrate and statin (10) DVT prophylaxis: Lovenox on hold for procedure today Admission and Anticipated Discharge Date Admission Date: October 10, 2019 Supervising Physician Co-Signing Physician Notes chart reviewed and case d/w S Lissy DUPREE. as above Subjective ROS Constitutional: no chills, aches, sweats or fever Respiratory: no sob,cough, sputum, or wheezing Cardiac: no chest pain, palpitations, edema, orthopnea or lightheadedness GI: no abdominal pain, nausea, vomiting, diarrhea or constipation : no dysuria or hesitancy Extremities: no joint pain or weakness Skin: no rash All other systems reviewed and negative Physical Exam Physical Exam: General: no distress Eyes: normal inspection, PERLL Respiratory: chest non tender, clear to auscultation, normal breath sounds, no respiratory distress, no accessory muscle use Cardiac: regular rate and rhythm, no rub or gallop, no murmur, no edema, no jvd GI/: active bowel sounds, no abd pain or tenderness, soft, non distended Extremities: normal range of motion, normal strength, non tender Neuro/Psych: alert and oriented x 3, normal mood and affect Skin: normal color, dry Results & Data Results & Data ([facility]) Vital Signs (Past 12 Hours) Vital Signs Temp Pulse Pulse Resp BP Pulse Ox 10/13/19 17:48 37.1 C 87 17 146/89 H 95 10/13/19 16:40 89 16 136/81 97 10/13/19 15:30 78 17 139/76 97 10/13/19 15:10 78 16 140/82 96 10/13/19 14:30 36.6 C 74 16 146/81 H 94 10/13/19 14:16 73 14 149/92 H 94 10/13/19 14:11 75 15 157/91 H 92 10/13/19 14:10 76 13 153/83 H 94 10/13/19 14:05 78 12 156/86 H 96 10/13/19 14:00 81 14 162/87 H 96 10/13/19 13:55 80 21 171/99 H 98 10/13/19 13:50 79 19 172/99 H 98 10/13/19 13:45 82 15 164/93 H 98 10/13/19 13:40 81 17 176/99 H 98 10/13/19 13:35 81 20 172/97 H 98 10/13/19 13:30 80 17 157/96 H 97 10/13/19 13:25 82 17 163/92 H 96 10/13/19 13:20 83 12 165/105 H 99 10/13/19 13:15 82 17 182/93 H 99 10/13/19 13:10 92 H 16 176/90 H 99 10/13/19 12:32 36.8 C 81 22 176/91 H 98 10/13/19 07:55 70 16 98 10/13/19 07:45 37.1 C 72 17 137/86 97 PG Care Time/CCT Total # of Minutes Spent Total Time Spent with Patient: Total time spent is greater than 50% in recruiter coordinator rdination of care (as documented) at patient's floor/unit and/or counseling patient: Coding Level of Care Code 12913 Subseq Hosp Care Lvl 2 Diagnoses Acute osteomyelitis of left foot M86.172 Cellulitis of foot, left L03.116 Diarrhea R19.7 Diarrhea type: unspecified type Acute renal failure superimposed on stage 3 chronic kidney disease N17.9; N18.3 Heart murmur R01.1 Type 2 diabetes, uncontrolled, with neuropathy E11.40; E11.65 Depression F32.9 COPD (chronic obstructive pulmonary disease) J44.9 COPD type: unspecified COPD Hyperlipidemia E78.5 Hyperlipidemia type: unspecified DVT prophylaxis Z29.9 (1) Diarrhea Diarrhea type: unspecified type Qualified Code(s): R19.7 - Diarrhea, unspecified (2) Hyperlipidemia Hyperlipidemia type: unspecified Qualified Code(s): E78.5 - Hyperlipidemia, unspecified (3) COPD (chronic obstructive pulmonary disease) COPD type: unspecified COPD Qualified Code(s): J44.9 - Chronic obstructive pulmonary disease, unspecified
[2019-10-13] MEDS: TEMAZEPAM 15 MG CAPSULE PO SCH (22:22)
[2019-10-13] MEDS: DAPTOmycin 600 MG in SYRINGE 0 ML IV SCH (22:23)
[2019-10-13] MEDS: SERTRALINE HCL 100 MG TABLET PO SCH (22:23)
[2019-10-13] MEDS: lisinopriL 20 MG TAB PO SCH (22:26)
[2019-10-14] MEDS: TRAMADOL HCL 50 MG TABLET PO PRN ×3 (00:51→20:43)
[2019-10-14] MEDS: SODIUM CHLORIDE 0.9% 1000ML 1,000 ML IV SCH ×2 (05:14→16:54)
[2019-10-14 07:10] LABS: Creatinine Clr Calc Pharmacy 94.5 ml/min; Est GFR (Non-African American) 71.6
[2019-10-14] MEDS: SIMETHICONE 80 MG CHEW PO SCH ×3 (08:06→16:34)
[2019-10-14] MEDS: ASCORBIC ACID 500 MG TAB PO SCH ×2 (08:55→20:41)
[2019-10-14] MEDS: GABAPENTIN 800 MG TAB PO SCH ×3 (08:55→20:40)
[2019-10-14] MEDS: SACCHAROMYCES BOULARDII 250 MG CAP PO SCH (08:56)
[2019-10-14] MEDS: MULTIVITAMIN TAB PO SCH (08:56)
[2019-10-14] MEDS: INSULIN HUMAN NPH SC SCH ×2 (09:29→18:12)
[2019-10-14] MEDS: INSULIN ASPART 100 UNITS/ML VIAL SC SCH ×4 (09:30→21:33)
[2019-10-14 10:09] LABS: Basophils # (auto) 0.02 K/uL (0-0.2); Basophils % (auto) 0.3 %; Eosinophils # (auto) 0.14 K/uL (0-0.5); Eosinophils % (auto) 2.1 %; Hematocrit (blood only) 39.4 % (42-52); Hemoglobin 12.9 g/dL (14.0-18.0); Immature Granulocytes # (auto) 0.01 K/uL (0.00-0.02); Immature Granulocytes % (auto) 0.1 %; Lymphocytes # (auto) 1.87 K/uL (1.2-3.4); Lymphocytes % (auto) 27.7 %; Mean Corpuscular Hemoglobin 28.2 pg (25-34); Mean Corpuscular Hgb Conc 32.7 g/dL (32-36); Mean Platelet Volume 9.7 fL (7.4-10.4); Monocytes # (auto) 0.46 K/uL (0.11-0.59); Monocytes % (auto) 6.8 %; Neutrophils # (auto) 4.24 K/uL (1.4-6.5); Platelet Count 143 K/uL (130-400); RDW Coefficient of Variation 13.7 % (11.5-14.5); RDW Standard Deviation 43.1 fL (36.4-46.3); Red Blood Count 4.58 M/uL (4.7-6.1); White Blood Count 6.74 K/uL (4.8-10.8)
[2019-10-14 10:42] LABS: BUN Creatinine Ratio 15.5 (10-20); Calcium 9.4 mg/dl (8.5-10.1); Creatinine Clr Calc Pharmacy 95.4 ml/min; Est GFR (Non-African American) 72.5; Potassium 4.1 mmol/L (3.5-5.1)
[2019-10-14] MEDS: ENOXAPARIN INJ 40 MG/0.4 ML SYR SQ SCH (10:44)
--- NOTE | 2019-10-14 11:11 | Billing Data ---
Date of Service October 14, 2019 Coding Level of Care Code 97120 Initial Inpt Care Lvl 3
[2019-10-14] MEDS ORDERED: VANCOMYCIN TROUGH ONE (11:30)
--- NOTE | 2019-10-14 15:41 | Hospitalist Progress Note ---
Date of Service October 14, 2019 Assessment & Plan (1) Acute osteomyelitis of left foot: New osteomyelitis from a nonhealing wound on his left foot after left fifth digit amputation on September 05 Possible early osteomyelitis of fifth metatarsal visible on MRI Continue Daptomycin - patient growing oxacillin resistant coag negative staph from wound culture. Will need six weeks of treatment Blood cultures drawn x2 - ngtd Podiatry consulted - recommend vascular consult to assist in characterizing patient's PAD, will follow further outpatient with his operations expert Dr. Lennon Vascular consult - patient taken to OR 10/12 for angio Will need to follow up with [facility] ID - sees Dr. Jensen (2) Cellulitis of foot, left: As above (3) Diarrhea: Likely secondary to prolonged antibiotic administration, c diff negative at last visit Continue probiotics (4) Acute renal failure superimposed on stage 3 chronic kidney disease: FADI resolved Avoid nephrotoxins where possible (5) Heart murmur: Asymptomatic - Follow up with pcp (6) Type 2 diabetes, uncontrolled, with neuropathy: Last A1c 10.6 Pharmacy consulted for glycemic management - patient with significant insulin doses and hyperglycemia Was adjusting his regimen with his pcp - added trulicity, but he had not yet started the regimen (7) Depression: Continue sertraline (8) COPD (chronic obstructive pulmonary disease): Stable, no changes to home regimen albuterol PRN Non smoker (9) Hyperlipidemia: Continuing fenofibrate and statin (10) DVT prophylaxis: Lovenox Dispo: discharge when home IV abx set up - will go home with Admission and Anticipated Discharge Date Admission Date: October 10, 2019 Supervising Physician Co-Signing Physician Notes chart reviewed and case d/w S Lissy DUPREE. as above Subjective Mr. Villa continues to feel better than when he came in. Tolerated his procedure with vascular yesterday well. ROS Constitutional: no chills, aches, sweats or fever Respiratory: no sob,cough, sputum, or wheezing Cardiac: no chest pain, palpitations, edema, orthopnea or lightheadedness GI: no abdominal pain, nausea, vomiting, diarrhea or constipation : no dysuria or hesitancy Extremities: no joint pain or weakness Skin: no rash All other systems reviewed and negative Physical Exam Physical Exam: General: no distress Eyes: normal inspection, PERLL Respiratory: chest non tender, clear to auscultation, normal breath sounds, no respiratory distress, no accessory muscle use Cardiac: regular rate and rhythm, no rub or gallop, no murmur, no edema, no jvd GI/: active bowel sounds, no abd pain or tenderness, soft, non distended Extremities: normal range of motion, normal strength, non tender Neuro/Psych: alert and oriented x 3, normal mood and affect Skin: normal color, dry Results & Data Results & Data ([facility]) Vital Signs (Past 12 Hours) Vital Signs Temp Pulse Resp BP Pulse Ox 10/14/19 14:23 36.7 C 71 16 147/63 H 98 10/14/19 07:34 36.7 C 81 16 153/84 H 98 10/14/19 03:55 36.6 C 73 18 116/62 97 PG Care Time/CCT Total # of Minutes Spent Total Time Spent with Patient: Total time spent is greater than 50% in coordination of care (as documented) at patient's floor/unit and/or counseling patient: Coding Level of Care Code 40805 Subseq Hosp Care Lvl 3 Diagnoses Acute osteomyelitis of left foot M86.172 Cellulitis of foot, left L03.116 Diarrhea R19.7 Diarrhea type: unspecified type Acute renal failure superimposed on stage 3 chronic kidney disease N17.9; N18.3 Heart murmur R01.1 Type 2 diabetes, uncontrolled, with neuropathy E11.40; E11.65 Depression F32.9 COPD (chronic obstructive pulmonary disease) J44.9 COPD type: unspecified COPD Hyperlipidemia E78.5 Hyperlipidemia type: unspecified DVT prophylaxis Z29.9 (1) Diarrhea Diarrhea type: unspecified type Qualified Code(s): R19.7 - Diarrhea, unspecified (2) Hyperlipidemia Hyperlipidemia type: unspecified Qualified Code(s): E78.5 - Hyperlipidemia, unspecified (3) COPD (chronic obstructive pulmonary disease) COPD type: unspecified COPD Qualified Code(s): J44.9 - Chronic obstructive pulmonary disease, unspecified
[2019-10-14] MEDS: clonazePAM 1 MG TAB PO PRN ×2 (16:39→21:28)
[2019-10-14] MEDS: ACETAMINOPHEN 500 MG TAB PO PRN (16:52)
[2019-10-14] MEDS: lisinopriL 20 MG TAB PO SCH (20:40)
[2019-10-14] MEDS: SERTRALINE HCL 100 MG TABLET PO SCH (20:40)
[2019-10-14] MEDS: TEMAZEPAM 15 MG CAPSULE PO SCH (20:40)
[2019-10-14] MEDS: CARBOHYDRATES FOR HYPOGLYCEMIA PO PRN ×2 (20:51→21:12)
[2019-10-14] MEDS: DAPTOmycin 600 MG in SYRINGE 0 ML IV SCH (21:22)
[2019-10-15] MEDS: SODIUM CHLORIDE 0.9% 1000ML 1,000 ML IV SCH (05:07)
[2019-10-15] MEDS: ALBUTEROL 0.083% NEBU SOLN 3 ML VIAL INH PRN (07:44)
[2019-10-15] MEDS: SIMETHICONE 80 MG CHEW PO SCH ×3 (08:22→16:07)
[2019-10-15 08:41] LABS: Hematocrit (blood only) 40.1 % (42-52); Hemoglobin 13.3 g/dL (14.0-18.0); Mean Corpuscular Hemoglobin 29.1 pg (25-34); Mean Corpuscular Hgb Conc 33.2 g/dL (32-36); Mean Corpuscular Volume 87.7 fL (80-100); Mean Platelet Volume 9.5 fL (7.4-10.4); Platelet Count 152 K/uL (130-400); RDW Coefficient of Variation 13.8 % (11.5-14.5); RDW Standard Deviation 44.2 fL (36.4-46.3); Red Blood Count 4.57 M/uL (4.7-6.1); White Blood Count 6.13 K/uL (4.8-10.8)
[2019-10-15 09:14] LABS: BUN Creatinine Ratio 13.6 (10-20); Calcium 9.1 mg/dl (8.5-10.1); Creatinine Clr Calc Pharmacy 89.5 ml/min; Est GFR (African American) 77.8; Est GFR (Non-African American) 67.1; Potassium 3.8 mmol/L (3.5-5.1)
[2019-10-15] MEDS: ENOXAPARIN INJ 40 MG/0.4 ML SYR SQ SCH (09:15)
[2019-10-15] MEDS: MULTIVITAMIN TAB PO SCH (09:16)
[2019-10-15] MEDS: GABAPENTIN 800 MG TAB PO SCH ×3 (09:17→21:52)
[2019-10-15] MEDS: SACCHAROMYCES BOULARDII 250 MG CAP PO SCH (09:17)
[2019-10-15] MEDS: ASCORBIC ACID 500 MG TAB PO SCH ×2 (09:17→21:52)
[2019-10-15] MEDS: INSULIN HUMAN NPH SC SCH ×2 (09:22→18:35)
[2019-10-15] MEDS: INSULIN ASPART 100 UNITS/ML VIAL SC SCH ×4 (09:23→20:36)
[2019-10-15] MEDS: TRAMADOL HCL 50 MG TABLET PO PRN ×3 (09:34→22:04)
[2019-10-15] MEDS: clonazePAM 1 MG TAB PO PRN ×3 (09:34→21:52)
--- NOTE | 2019-10-15 10:01 | Pharmacy Report ---
Pharmacy Glycemic Short Note 2 - Date of Service October 15, 2019 - Glycemic Short BSG Results (Last 24 hours): 10/14/19 10/14/19 10/14/19 09:46 12:36 17:07 Glucose 176 H POC Glucose 192 H 105 H 10/14/19 10/14/19 10/14/19 20:49 20:50 21:10 Glucose POC Glucose 43 L* 43 L* 65 L* 10/14/19 10/15/19 10/15/19 21:26 08:27 08:35 Glucose 134 H POC Glucose 95 136 H ASSESSMENT: : * Patient received total of 130 units of insulin yesterday, of which 70 were basal insulin * Patient with episode of hypoglycemia last night, will loosen CR/CF and decrease basal at this time to prevent further hypoglycemia 10/12: * Patient received total of 172 units of insulin yesterday, of which 90 were basal insulin * Patient NPO this am for angiogram, fasting 115 mg/dL - reduced NPH by ~30% to 30 units, however patient refusing dose. Okay with lower dosing of 20 units for this AM * BSGs yesterday much improved - loosen CF this AM * Plan on scale for NPH for dinner 10/11: * Patient received total of 209 units of insulin yesterday, of which 105 were basal insulin * Fasting BSG this Am 85 mg/dL - plan to scale back slightly with basal ~10-15% * Continue same CF/CR for now / may need tightened PLAN FOR INPATIENT GLYCEMIC CONTROL: * Hold outpatient oral diabetes medications * Basal insulin -decrease * NPH 25-45 at dinner based upon BSG scale * Bolus insulin * NovoLog per scale ACHS or Q6hrs while NPO * Goal Range: Low 110 mg/dL - High 140 mg/dL * loosen: Correction Factor: 12 mg/dL/unit * loosen: Nutritional / Prandial insulin per carb ratio of 1 unit per 3 grams CHO consumed PLAN FOR DISCHARGE: * A1C on 09/30 was 10.6% (goal <7%) * This A1C is a decrease from prior A1C of 11.1 in June 2019 * DM educator in to talk with patient. Encourage modification in diet/lower carb meals. Patient seems to be willing to get back on track with diet, had lapsed during COVID outbreak with eating habits. Discussion about following Endo provider closer to where patient lives for outpatient management. * Would continue home diabetes regimen for now, however would encourage that patient does follow Endo provider for further insulin management/adjustment outpatient.
--- NOTE | 2019-10-15 10:53 | Hospitalist Progress Note ---
Date of Service October 15, 2019 Assessment & Plan (1) Acute osteomyelitis of left foot: New osteomyelitis from a nonhealing wound on his left foot after left fifth digit amputation on September 05 Possible early osteomyelitis of fifth metatarsal visible on MRI Continue Daptomycin - patient growing oxacillin resistant coag negative staph from wound culture. Will need six weeks of treatment Blood cultures drawn x2 - ngtd Podiatry consulted - recommend vascular consult to assist in characterizing patient's PAD, will follow further outpatient with his cost estimator Dr. Lennon Vascular consult - patient taken to OR 10/12 for angio Will need to follow up with [facility] ID - sees Dr. Jensen (2) Cellulitis of foot, left: As above (3) Diarrhea: Likely secondary to prolonged antibiotic administration, c diff negative at last visit Continue probiotics (4) Acute renal failure superimposed on stage 3 chronic kidney disease: FADI resolved Avoid nephrotoxins where possible (5) Heart murmur: Asymptomatic - Follow up with pcp (6) Type 2 diabetes, uncontrolled, with neuropathy: Last A1c 10.6 Pharmacy consulted for glycemic management - patient with significant insulin doses and hyperglycemia. Last night with an episode of hypoglycemia Was adjusting his regimen with his pcp - added trulicity, but he had not yet started the regimen (7) Depression: Continue sertraline (8) COPD (chronic obstructive pulmonary disease): Stable, no changes to home regimen albuterol PRN Non smoker (9) Hyperlipidemia: Continuing fenofibrate and statin (10) DVT prophylaxis: Lovenox Dispo: discharge when home IV abx set up, will likely be Wednesday as patient needs pre auth - will go home with Admission and Anticipated Discharge Date Admission Date: October 10, 2019 Supervising Physician Co-Signing Physician Notes case d/w S Lissy DUPREE. as above Subjective Mr. Villa feels pretty good today, ambulating the halls with a cane. He has no complaints. ROS Constitutional: no chills, aches, sweats or fever Respiratory: no sob,cough, sputum, or wheezing Cardiac: no chest pain, palpitations, edema, orthopnea or lightheadedness GI: no abdominal pain, nausea, vomiting, diarrhea or constipation : no dysuria or hesitancy Extremities: no joint pain or weakness Skin: no rash All other systems reviewed and negative Physical Exam Physical Exam: General: no distress Eyes: normal inspection, PERLL Respiratory: chest non tender, clear to auscultation, normal breath sounds, no respiratory distress, no accessory muscle use Cardiac: regular rate and rhythm, no rub or gallop, 2/6 systolic murmur, no edema, no jvd GI/: active bowel sounds, no abd pain or tenderness, soft, non distended Extremities: normal range of motion, normal strength, non tender Neuro/Psych: alert and oriented x 3, normal mood and affect Skin: normal color, dry Results & Data Results & Data ([facility]) Vital Signs (Past 12 Hours) Vital Signs Temp Pulse Resp BP Pulse Ox 10/15/19 07:47 88 16 98 10/15/19 07:07 37.1 C 68 17 134/75 99 10/15/19 00:11 37.3 C 86 20 128/76 98 PG Care Time/CCT Total # of Minutes Spent Total Time Spent with Patient: Total time spent is greater than 50% in coordination of care (as documented) at patient's floor/unit and/or counseling patient: Coding Level of Care Code 14562 Subseq Hosp Care Lvl 2 Diagnoses Acute osteomyelitis of left foot M86.172 Cellulitis of foot, left L03.116 Diarrhea R19.7 Diarrhea type: unspecified type Acute renal failure superimposed on stage 3 chronic kidney disease N17.9; N18.3 Heart murmur R01.1 Type 2 diabetes, uncontrolled, with neuropathy E11.40; E11.65 Depression F32.9 COPD (chronic obstructive pulmonary disease) J44.9 COPD type: unspecified COPD Hyperlipidemia E78.5 Hyperlipidemia type: unspecified DVT prophylaxis Z29.9 (1) Diarrhea Diarrhea type: unspecified type Qualified Code(s): R19.7 - Diarrhea, unspecified (2) Hyperlipidemia Hyperlipidemia type: unspecified Qualified Code(s): E78.5 - Hyperlipidemia, unspecified (3) COPD (chronic obstructive pulmonary disease) COPD type: unspecified COPD Qualified Code(s): J44.9 - Chronic obstructive pulmonary disease, unspecified
[2019-10-15] MEDS: SERTRALINE HCL 100 MG TABLET PO SCH (21:52)
[2019-10-15] MEDS: TEMAZEPAM 15 MG CAPSULE PO SCH (21:52)
[2019-10-15] MEDS: lisinopriL 20 MG TAB PO SCH (21:52)
[2019-10-15] MEDS: DAPTOmycin 600 MG in SYRINGE 0 ML IV SCH (21:53)
[2019-10-15] MEDS: ACETAMINOPHEN 500 MG TAB PO PRN (22:04)
[2019-10-16] MEDS: CARBOHYDRATES FOR HYPOGLYCEMIA PO PRN ×2 (02:09→17:05)
[2019-10-16] MEDS: INSULIN ASPART 100 UNITS/ML VIAL SC SCH ×3 (08:30→12:51)
[2019-10-16] MEDS: GABAPENTIN 800 MG TAB PO SCH ×2 (08:41→13:48)
[2019-10-16] MEDS: MULTIVITAMIN TAB PO SCH (08:41)
[2019-10-16] MEDS: ENOXAPARIN INJ 40 MG/0.4 ML SYR SQ SCH (08:41)
[2019-10-16] MEDS: SIMETHICONE 80 MG CHEW PO SCH ×3 (08:41→16:20)
[2019-10-16] MEDS: SACCHAROMYCES BOULARDII 250 MG CAP PO SCH (08:41)
[2019-10-16] MEDS: ASCORBIC ACID 500 MG TAB PO SCH (08:41)
[2019-10-16] MEDS: INSULIN HUMAN NPH SC SCH (08:48)
[2019-10-16] MEDS: clonazePAM 1 MG TAB PO PRN ×2 (08:59→16:20)
[2019-10-16] MEDS: TRAMADOL HCL 50 MG TABLET PO PRN ×2 (09:00→16:20)
[2019-10-16] MEDS ORDERED: INSULIN ASPART 100 UNITS/ML VIAL SC SCH (11:30)
--- NOTE | 2019-10-16 14:34 | Pharmacy Report ---
Pharmacy Glycemic Short Note 2 - Date of Service October 16, 2019 - Glycemic Short BSG Results (Last 24 hours): 10/15/19 10/15/19 10/16/19 17:03 20:31 02:02 POC Glucose 74 130 H 63 L* 10/16/19 10/16/19 10/16/19 02:23 08:25 11:55 POC Glucose 113 H 153 H 96 ASSESSMENT: 10/15: * Patient received total of 111 units of insulin yesterday, of which 50 were basal insulin * BSG overnight lower at 62 mg/dL - however trending up to 113 mg/dL after given 15 gm of carbs * Unclear for reasoning, basal insulin had been decreased yesterday by ~30% day prior * Continue same scale for basal this AM, add reduced scale for HS time 10/14: * Patient received total of 130 units of insulin yesterday, of which 70 were basal insulin * Patient with episode of hypoglycemia last night, will loosen CR/CF and decrease basal at this time to prevent further hypoglycemia PLAN FOR INPATIENT GLYCEMIC CONTROL: * Hold outpatient oral diabetes medications * Basal insulin -decrease * NPH 15-25 at dinner based upon BSG scale * Bolus insulin * NovoLog per scale ACHS or Q6hrs while NPO * Goal Range: Low 110 mg/dL - High 140 mg/dL * loosen: Correction Factor: 12 mg/dL/unit * loosen: Nutritional / Prandial insulin per carb ratio of 1 unit per 3 grams CHO consumed PLAN FOR DISCHARGE: * A1C on 09/30 was 10.6% (goal <7%) * This A1C is a decrease from prior A1C of 11.1 in June 2019 * DM educator in to talk with patient. Encourage modification in diet/lower carb meals. Patient seems to be willing to get back on track with diet, had lapsed during COVID outbreak with eating habits. Discussion about following Endo provider closer to where patient lives for outpatient management. * Would continue home diabetes regimen for now, however would encourage that patient does follow Endo provider for further insulin management/adjustment outpatient.
[2019-10-16] MEDS ORDERED: DAPTOmycin 500 MG in SYRINGE 0 ML IV SCH (17:00)
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
[2019-10-17] MEDS ORDERED: INSULIN ASPART 100 UNITS/ML VIAL SC SCH (07:30)
== END 2019-10-16 19:00 | disposition home health service (06) | DRG 629 ==
LOC: ED 15:20 → SUATTDRO 22:30 → 3W 22:30

== ENCOUNTER 2019-10-30 15:02 | Inpatient (IN) ==
[2019-10-30] MEDS ORDERED: ACETAMINOPHEN 1,000 MG/100 ML VIAL IV STA (17:48)
[2019-10-30] MEDS ORDERED: ONDANSETRON INJ 2 MG/ML 2 ML VIAL IV STA (17:48)
--- NOTE | 2019-10-30 17:59 | Emergency Department Note ---
History of Present Illness General Chief complaint: Line Placement Stated complaint: DVT IN LEFT ARM, NEEDS NEW PIC LINE Time Seen by Provider: 10/30/19 17:25 Source: patient and family Mode of arrival: ambulatory Limitations: no limitations History of Present Illness Provider complaint: fever, nausea, need new PICC line Maximum Pain Intensity: 5 This is a 64 yo male who presents for placement of a new PICC line and concern for fevers and nausea. Pt is receiving IV vancomycin for osteomyelitis in the left foot. Pt was previously on daptomycin. Pt had presented here last night, was found to have a DVT in the LUE thought to be from the PICC line. He was started on lovenox and coumadin last night and given his usual vancomycin. Pt was in the MTU today and team refused to be admitted and was told to come to the ER. PICC line wasn't removed at MTU due to concern for need for anti coagulation. Dr. Dangelo was aware of the patient per the report from the charge nurse and instructed the patient to come to the ER. Pt states he develop diarrhea today and is now concerned for C.diff. Pt seen during a time of high acuity and national emergency pandemic while wearing PPE. Home Medications Home Medications Medication Instructions Recorded Confirmed Type ascorbic acid (vitamin C) 500 mg 500 mg PO BID cap 01/20/19 10/30/19 History capsule qwdladov-gqb-dtcyq acid 0.4 1 tab PO QAM 01/20/19 10/30/19 History mg-lycopene 300 mcg-lutein 250 mcg tablet aspirin 325 mg tablet,delayed 325 mg PO QAM tab 05/22/19 10/30/19 History release acetaminophen [Tylenol Extra 1,000 mg PO Q8H PRN 09/15/19 10/30/19 History Strength] cyclobenzaprine 5 mg tablet 5 mg PO TID PRN #90 tab 10/03/19 10/30/19 Rx gabapentin 800 mg tablet 800 mg PO TID #90 tab 10/03/19 10/30/19 Rx insulin regular hum U-500 conc 100 unit SQ TIDM #6 ml 10/03/19 10/30/19 Rx lisinopril 20 mg tablet 20 mg PO HS #90 tab 10/03/19 10/30/19 Rx albuterol sulfate 2.5 mg INH Q8H PRN #180 ml 10/04/19 10/30/19 Rx chlorpheniramine maleate 4 mg 4 mg PO Q12H PRN #60 tab 10/09/19 10/30/19 Rx tablet dulaglutide 0.75 mg/0.5 mL 0.75 mg SQ WEEKLY #2 ml 10/09/19 10/30/19 Rx subcutaneous pen injector tramadol 50 mg PO Q6H PRN #15 tab 10/16/19 10/30/19 Rx Pic Line reinsertion #1 ea 10/17/19 10/30/19 Rx temazepam [Restoril] 30 mg PO HS PRN 10/17/19 10/30/19 History clonazepam 1 mg tablet 1 mg PO TID #90 tab 10/25/19 10/30/19 Rx Lactobacillus acidoph-L.bulgar 3 tab PO QAM 10/29/19 10/30/19 History [Lactinex] diphenhydramine HCl [Benadryl] 50 mg PO HS PRN 10/29/19 10/30/19 History enoxaparin [Lovenox] 120 mg SQ Q12H 5 Days #8 ml 10/29/19 10/30/19 Rx ondansetron HCl [Zofran] 4 mg PO Q8H PRN 10/29/19 10/30/19 History sertraline 50 mg PO HS 10/29/19 10/30/19 History vancomycin 1.25 g IV Q12H 10/29/19 10/30/19 History warfarin 5 mg PO DAILY #5 tab 10/29/19 10/30/19 Rx MTU Referral #1 ea 10/30/19 10/30/19 Rx linezolid [Zyvox] 600 mg PO BID 10/30/19 10/30/19 History metronidazole [Flagyl] 500 mg PO TID 10/30/19 10/30/19 History Allergies Allergy/AdvReac Type Severity Reaction Status Date / Time codeine Allergy Unknown RASH, Verified 10/30/19 17:02 VOMITING Penicillins Allergy Unknown RASH Verified 10/30/19 17:02 amoxicillin [From Augmentin] Allergy Vomiting Verified 10/30/19 17:02 ciprofloxacin [From Cipro] Allergy Hives Verified 10/30/19 17:02 clavulanic acid Allergy Vomiting Verified 10/30/19 17:02 [From Augmentin] exenatide [From Bydureon] Allergy . Verified 10/30/19 17:02 Past Med/Surg History Medical History Anxiety (Chronic) Asthma (Acute) Depression (Acute) Diabetes (Chronic) Hyperlipidemia Hypertension (Chronic) Insomnia (Acute) Irritable bowel syndrome (IBS) (Acute) Lumbar radiculopathy (Acute) Macular degeneration (Acute) Obese (Acute) Peripheral arterial disease PICC (peripherally inserted central catheter) in place (Acute) PTSD (post-traumatic stress disorder) (Chronic) Type 2 diabetes, uncontrolled, with neuropathy Surgical History History of amputation left 5th toe -09/06/19 at [facility] History of back surgery History of tonsillectomy Hx of tooth extraction Family History Mother , 57 Cancer Cervical cancer Esophageal cancer Father Myocardial infarction Colon cancer Sister , 53 AML (acute myelogenous leukemia) Stroke Scleroderma Sister Fibrocystic breast disease Sister Anxiety Anorexia nervosa Denies family history of Ovarian cancer Prostate cancer Breast cancer Social History Smoking Status: Former smoker Tobacco Type: Cigarettes Age Started Using Tobacco: 26; Age Quit Using Tobacco: 37; Cigarettes Per Day: Social smoker 1 pk lasted 1 month; Second Hand Exposure: No; Hx Alcohol Use: No Hx Substance Use: No Preferred Language: Bur[place]ian Communication Ability: Effective Visual Impairment: No Limitations Hearing Ability: Normal Chief Program Officer Required: No Beliefs That Will Affect Care: None marital status: Life Partner Current Living Situation: Spouse current occupational status: retired Feels Safe at Home: Yes Childhood Exposure to Second-Hand Smoke: Yes Dental Care, Regularly: Yes Seatbelt Use: always Sunscreen Use: Yes Review of Systems See HPI for pertinent positives & negatives. and A total of 10 systems reviewed and were otherwise negative Physical Exam Vital Signs Vital Signs - 24 hr 10/30/19 15:18 10/30/19 19:15 10/30/19 19:17 Temperature 37.0 C Temperature Source Oral Pulse Rate 107 H 86 84 Pulse Rate from SpO2 Sensor 85 84 Pulse Rhythm Regular Pulse Strength Normal Respiratory Rate 18 15 13 Respiratory Effort / Characteristics Non-Labored Spontaneous Respiratory Depth Normal Respiratory Pattern Regular Blood Pressure 123/68 147/74 H Blood Pressure Mean 86 105 Blood Pressure Position Lying Pulse Oximetry 97 95 96 Oxygen Delivery Method Room Air Sepsis Recent Fever Within 48 Hours No Sepsis New/Unexplained Change in Mental Status No Sepsis Action Taken by Nursing No Action Required 10/30/19 19:20 10/30/19 19:30 10/30/19 19:33 Temperature Temperature Source Pulse Rate 80 86 Pulse Rate from SpO2 Sensor 81 86 Pulse Rhythm Pulse Strength Respiratory Rate 16 18 Respiratory Effort / Characteristics Respiratory Depth Respiratory Pattern Blood Pressure 162/69 H Blood Pressure Mean 97 Blood Pressure Position Pulse Oximetry 97 97 96 Oxygen Delivery Method Sepsis Recent Fever Within 48 Hours Sepsis New/Unexplained Change in Mental Status Sepsis Action Taken by Nursing 10/30/19 19:45 10/30/19 20:00 10/30/19 20:01 Temperature Temperature Source Pulse Rate 77 80 80 Pulse Rate from SpO2 Sensor 77 80 80 Pulse Rhythm Pulse Strength Respiratory Rate 18 18 13 Respiratory Effort / Characteristics Respiratory Depth Respiratory Pattern Blood Pressure 164/78 H 163/77 H Blood Pressure Mean 90 107 Blood Pressure Position Pulse Oximetry 92 91 Oxygen Delivery Method Sepsis Recent Fever Within 48 Hours Sepsis New/Unexplained Change in Mental Status Sepsis Action Taken by Nursing 10/30/19 20:11 10/30/19 20:15 10/30/19 20:30 Temperature Temperature Source Pulse Rate 80 80 Pulse Rate from SpO2 Sensor 80 81 Pulse Rhythm Pulse Strength Respiratory Rate 20 18 19 Respiratory Effort / Characteristics Non-Labored Non-Labored Respiratory Depth Respiratory Pattern Blood Pressure 125/64 171/76 H Blood Pressure Mean 81 98 Blood Pressure Position Pulse Oximetry 94 91 98 Oxygen Delivery Method Room Air Room Air Sepsis Recent Fever Within 48 Hours Sepsis New/Unexplained Change in Mental Status Sepsis Action Taken by Nursing 10/30/19 20:45 Temperature Temperature Source Pulse Rate 82 Pulse Rate from SpO2 Sensor Pulse Rhythm Pulse Strength Respiratory Rate 17 Respiratory Effort / Characteristics Respiratory Depth Respiratory Pattern Blood Pressure 178/93 H Blood Pressure Mean 118 Blood Pressure Position Pulse Oximetry Oxygen Delivery Method Sepsis Recent Fever Within 48 Hours Sepsis New/Unexplained Change in Mental Status Sepsis Action Taken by Nursing GENERAL: alert, well appearing, well nourished, no distress, non-toxic, obese EYE EXAM: normal conjunctiva, PERRL and EOM's grossly intact OROPHARYNX: no exudate, no erythema, lips, buccal mucosa, and tongue normal and mucous membranes are moist NECK: supple, no nuchal rigidity, no adenopathy, non-tender LUNGS: Clear to auscultation. Normal chest wall mechanics, no w/r/r HEART: no murmurs, S1 normal and S2 normal ABDOMEN: abdomen soft, non-tender, normo-active bowel sounds, no masses, no rebound or guarding. BACK: Back is symmetrical on inspection and there is no deformity, no midline tenderness, no CVA tenderness. SKIN: no rashes and no bruising, no petechiae UPPER EXTREMITIES: upper extremities are grossly normal. FROM, nml pulses b/l. LUE PICC line in place, no surrounding erythema. RUE with well healed scar proximally from prior PICC. LOWER EXTREMITIES: No pitting edema. FROM, nml pulses b/l. Dressing to left foot, ulcerative lesion appears to be healing well, no worsening erythema or drainage, no crepitus NEURO EXAM: Normal sensorium, cranial nerves II-XII grossly intact, normal speech, no gross weakness of arms, no gross weakness of legs. Gross sensation intact. Course Administered Medications Sodium Chloride (Nss 1000ml) 1,000 mls @ 125 mls/hr IV .Q8H KOLBY Stop: 11/29/19 17:59 Last Admin: 10/30/19 19:33 Dose: 125 mls/hr Documented by: [id number] Discontinued Medications Acetaminophen (Ofirmev) 1,000 mg in 100 mls @ 400 mls/hr IV NOW STA Stop: 10/30/19 18:02 Last Infusion: 10/30/19 20:33 Dose: 0 mls/hr Documented by: [id number] Admin: 10/30/19 19:33 Dose: 400 mls/hr Documented by: [id number] Ondansetron HCl (Zofran) 4 mg IV NOW STA Stop: 10/30/19 17:49 Last Admin: 10/30/19 19:33 Dose: 4 mg Documented by: [id number] Medical Decision Making Differential Diagnosis Differential diagnosis: Etiologies such as viral syndrome, otitis, pharyngitis, pneumonia, influenza, meningitis, urinary tract infection, sepsis, bacteremia, as well as others were entertained. Medical Records Attestation: I reviewed the patient's medical records. Home Medications Current Medication List: was personally reviewed by me Laboratory Data Attestation: I reviewed the patient's lab results. Result diagrams: 10/30/19 19:16 10/30/19 19:16 Lab Results 10/30/19 10/30/19 10/30/19 Range/Units 19:15 19:16 19:16 WBC 5.83 (4.8-10.8) K/uL RBC 4.65 L (4.7-6.1) M/uL Hgb 13.3 L (14.0-18.0) g/dL Hct 38.8 L (42-52) % MCV 83.4 (80-100) fL MCH 28.6 (25-34) pg MCHC 34.3 (32-36) g/dL RDW Std Deviation 39.7 (36.4-46.3) fL RDW Coeff of Ramos 13.4 (11.5-14.5) % Plt Count 161 (130-400) K/uL MPV 9.2 (7.4-10.4) fL Immature Gran % (Auto) 0.2 % Neut % (Auto) 60.3 % Lymph % (Auto) 32.1 % Deuel % (Auto) 5.0 % Eos % (Auto) 2.1 % Baso % (Auto) 0.3 % Neut # (Auto) 3.52 (1.4-6.5) K/uL Lymph # (Auto) 1.87 (1.2-3.4) K/uL Deuel # (Auto) 0.29 (0.11-0.59) K/uL Eos # (Auto) 0.12 (0-0.5) K/uL Baso # (Auto) 0.02 (0-0.2) K/uL Immature Gran # (Auto) 0.01 (0.00-0.02) K/uL PT 10.7 (9.0-12.0) Seconds INR 1.0 (0.9-1.1) APTT 27.7 (21.0-31.0) Seconds PTT Ratio 1.0 Sodium (136-145) mmol/L Potassium (3.5-5.1) mmol/L Chloride (98-107) mmol/L Carbon Dioxide (21-32) mmol/L Anion Gap (3-11) BUN (7-18) mg/dl Creatinine (0.6-1.4) mg/dl Est Cr Clr Drug Dosing ml/min Est GFR ( Amer) Est GFR (Non-Af Amer) BUN/Creatinine Ratio (10-20) Glucose (70-99) mg/dl POC Glucose (70-99) mg/dl Lactate (0.4-2.0) mmol/L Calcium (8.5-10.1) mg/dl Magnesium (1.8-2.4) mg/dl Total Bilirubin (0.2-1) mg/dl AST (15-37) U/L ALT (12-78) U/L Alkaline Phosphatase (45-117) U/L Troponin I (0-0.045) ng/ml Total Protein (6.4-8.2) gm/dl Albumin (3.4-5.0) gm/dl Globulin (2.5-4.0) gm/dl Albumin/Globulin Ratio (0.9-2) Procalcitonin (0-0.5) ng/ml Urine Color Yellow Urine Appearance Clear (Clear) Urine pH 5.5 (4.5-7.5) Ur Specific Brainard 1.013 (1.000-1.030) Urine Protein Negative (Negative) Urine Glucose (UA) 2+ H (Negative) Urine Ketones Negative (Negative) Urine Blood Negative (Negative) Urine Nitrite Negative (Negative) Urine Bilirubin Negative (Negative) Urine Urobilinogen Negative (Negative) Ur Leukocyte Esterase Negative (Negative) 10/30/19 10/30/19 10/30/19 Range/Units 19:16 19:16 19:16 WBC (4.8-10.8) K/uL RBC (4.7-6.1) M/uL Hgb (14.0-18.0) g/dL Hct (42-52) % MCV (80-100) fL MCH (25-34) pg MCHC (32-36) g/dL RDW Std Deviation (36.4-46.3) fL RDW Coeff of Ramos (11.5-14.5) % Plt Count (130-400) K/uL MPV (7.4-10.4) fL Immature Gran % (Auto) % Neut % (Auto) % Lymph % (Auto) % Deuel % (Auto) % Eos % (Auto) % Baso % (Auto) % Neut # (Auto) (1.4-6.5) K/uL Lymph # (Auto) (1.2-3.4) K/uL Deuel # (Auto) (0.11-0.59) K/uL Eos # (Auto) (0-0.5) K/uL Baso # (Auto) (0-0.2) K/uL Immature Gran # (Auto) (0.00-0.02) K/uL PT (9.0-12.0) Seconds INR (0.9-1.1) APTT (21.0-31.0) Seconds PTT Ratio Sodium 134 L (136-145) mmol/L Potassium 4.9 (3.5-5.1) mmol/L Chloride 103 (98-107) mmol/L Carbon Dioxide 24 (21-32) mmol/L Anion Gap 7.0 (3-11) BUN 20 H (7-18) mg/dl Creatinine 1.28 (0.6-1.4) mg/dl Est Cr Clr Drug Dosing 78.8 ml/min Est GFR ( Amer) 67.6 Est GFR (Non-Af Amer) 58.3 BUN/Creatinine Ratio 15.6 (10-20) Glucose 277 H (70-99) mg/dl POC Glucose (70-99) mg/dl Lactate 0.5 (0.4-2.0) mmol/L Calcium 8.7 (8.5-10.1) mg/dl Magnesium 2.0 (1.8-2.4) mg/dl Total Bilirubin 0.2 (0.2-1) mg/dl AST 27 (15-37) U/L ALT 42 (12-78) U/L Alkaline Phosphatase 57 (45-117) U/L Troponin I < 0.015 (0-0.045) ng/ml Total Protein 7.7 (6.4-8.2) gm/dl Albumin 3.8 (3.4-5.0) gm/dl Globulin 3.9 (2.5-4.0) gm/dl Albumin/Globulin Ratio 1.0 (0.9-2) Procalcitonin < 0.05 (0-0.5) ng/ml Urine Color Urine Appearance (Clear) Urine pH (4.5-7.5) Ur Specific Brainard (1.000-1.030) Urine Protein (Negative) Urine Glucose (UA) (Negative) Urine Ketones (Negative) Urine Blood (Negative) Urine Nitrite (Negative) Urine Bilirubin (Negative) Urine Urobilinogen (Negative) Ur Leukocyte Esterase (Negative) 10/30/19 Range/Units 20:46 WBC (4.8-10.8) K/uL RBC (4.7-6.1) M/uL Hgb (14.0-18.0) g/dL Hct (42-52) % MCV (80-100) fL MCH (25-34) pg MCHC (32-36) g/dL RDW Std Deviation (36.4-46.3) fL RDW Coeff of Ramos (11.5-14.5) % Plt Count (130-400) K/uL MPV (7.4-10.4) fL Immature Gran % (Auto) % Neut % (Auto) % Lymph % (Auto) % Deuel % (Auto) % Eos % (Auto) % Baso % (Auto) % Neut # (Auto) (1.4-6.5) K/uL Lymph # (Auto) (1.2-3.4) K/uL Deuel # (Auto) (0.11-0.59) K/uL Eos # (Auto) (0-0.5) K/uL Baso # (Auto) (0-0.2) K/uL Immature Gran # (Auto) (0.00-0.02) K/uL PT (9.0-12.0) Seconds INR (0.9-1.1) APTT (21.0-31.0) Seconds PTT Ratio Sodium (136-145) mmol/L Potassium (3.5-5.1) mmol/L Chloride (98-107) mmol/L Carbon Dioxide (21-32) mmol/L Anion Gap (3-11) BUN (7-18) mg/dl Creatinine (0.6-1.4) mg/dl Est Cr Clr Drug Dosing ml/min Est GFR ( Amer) Est GFR (Non-Af Amer) BUN/Creatinine Ratio (10-20) Glucose (70-99) mg/dl POC Glucose 244 H (70-99) mg/dl Lactate (0.4-2.0) mmol/L Calcium (8.5-10.1) mg/dl Magnesium (1.8-2.4) mg/dl Total Bilirubin (0.2-1) mg/dl AST (15-37) U/L ALT (12-78) U/L Alkaline Phosphatase (45-117) U/L Troponin I (0-0.045) ng/ml Total Protein (6.4-8.2) gm/dl Albumin (3.4-5.0) gm/dl Globulin (2.5-4.0) gm/dl Albumin/Globulin Ratio (0.9-2) Procalcitonin (0-0.5) ng/ml Urine Color Urine Appearance (Clear) Urine pH (4.5-7.5) Ur Specific Brainard (1.000-1.030) Urine Protein (Negative) Urine Glucose (UA) (Negative) Urine Ketones (Negative) Urine Blood (Negative) Urine Nitrite (Negative) Urine Bilirubin (Negative) Urine Urobilinogen (Negative) Ur Leukocyte Esterase (Negative) Imaging Data Radiologist's Impression: XR chest 1V portable CLINICAL HISTORY: SEPSIS COMPARISON STUDY: 10/29/2019 FINDINGS: The cardiac and mediastinal contours are normal. There is no evidence of focal pulmonary consolidation. There is no evidence of failure. No pleural effusions are visualized.[A left-sided PICC catheter remains unchanged in position. IMPRESSION: No active disease in the chest. ACT 112: Negative or not required by law. Electronically signed by: Roderick Santiago M.D. 10/30/2019 6:09 PM Blood Pressure Blood Pressure Findings: Elevated blood pressure Blood Pressure Disposition: further management by hospitalist ROSIE Narrative Patient here after being evaluated yesterday and found to have left upper extremity DVT and referred to them to you this morning. At the MTU patient could not have a new PICC line placed. Patient had been started on Lovenox and Coumadin last night. Patient stated today he was feeling worse with nausea, fevers, and diarrhea. Patient has no concern for C. difficile as he has been on daptomycin and then more recently vancomycin for osteomyelitis that was discovered 3 months ago in the left foot. Patient was hemodynamically stable throughout. The IV team was consulted and came to bedside and was able to place a PICC line. Patient signed the consent form in my presence and the nurse witness. Labs drawn and sent including blood cultures to cover for possible sepsis or failed outpatient treatment. Patient's lactic acid and procalcitonin reassuring. Patient's H&H stable, renal function reassuring. Patient was hyperglycemic, the patient is a known diabetic. Discussed results with patient and plan. He was in agreement. Order for C. difficile was placed although patient had not had any episodes of diarrhea while in the emergency room that was reported to me. We will continue to monitor given patient is at risk. Patient started on gentle IV fluid rehydration. Case discussed with hospitalist for additional evaluation and management. An order was placed for continuous cardiac monitoring. The monitor shows a rate of _80_ with _normal sinus rhythm. Impression & Plan Fever, Obese, Acute deep vein thrombosis (DVT) of left upper extremity, Occluded PICC line, Chronic osteomyelitis of left foot, Hyperglycemia due to diabetes mellitus, Hypertension Discharge Plan Visit Data *Final* Discharge Date/Time: 10/30/19 21:24 Chief Complaint: Line Placement Stated Complaint: DVT IN LEFT ARM, NEEDS NEW PIC LINE ED Provider: Nuvia Montague Discharge Problem: Fever, Obese, Acute deep vein thrombosis (DVT) of left upper extremity, Occlud ed PICC line, Chronic osteomyelitis of left foot, Hyperglycemia due to diabetes mellitus, Hypertension Patient Disposition: Admitted As Inpatient Discharge Instructions Interventions: ED Discharge Assessment Last Done: 10/30/19 21:24 Discharge Problem: Fever Qualifiers: Fever type: unspecified Qualified Code(s): R50.9 - Fever, unspecified Obese Qualifiers: Obesity type: unspecified obesity type Obesity classification: unspecified obesity classification Serious obesity comorbidity presence: with serious comorbidity Qualified Code(s): E66.9 - Obesity, unspecified Acute deep vein thrombosis (DVT) of left upper extremity Qualifiers: Affected thrombotic vein of extremity: unspecified vein of extremity Qualified Code(s): I82.622 - Acute embolism and thrombosis of deep veins of left upper extremity Occluded PICC line Qualifiers: Encounter type: subsequent encounter Qualified Code(s): T82.898D - Other specified complication of vascular prosthetic devices, implants and grafts, subsequent encounter Hypertension Qualifiers: Hypertension type: essential hypertension Qualified Code(s): I10 - Essential (primary) hypertension
--- NOTE | 2019-10-30 18:11 | XRay Report ---
XR chest 1V portable CLINICAL HISTORY: SEPSIS COMPARISON STUDY: 10/29/2019 FINDINGS: The cardiac and mediastinal contours are normal. There is no evidence of focal pulmonary co nsolidation. There is no evidence of failure. No pleural effusions are visualized.[A left-sided PICC catheter remains unchanged in position. IMPRESSION: No active disease in the chest. ACT 112: Negative or not required by law. Electronically signed by: Roderick Santiago M.D. 10/30/2019 6:09 PM
[2019-10-30 19:25] LABS: Basophils # (auto) 0.02 K/uL (0-0.2); Basophils % (auto) 0.3 %; Eosinophils # (auto) 0.12 K/uL (0-0.5); Eosinophils % (auto) 2.1 %; Hematocrit (blood only) 38.8 % (42-52); Hemoglobin 13.3 g/dL (14.0-18.0); Immature Granulocytes # (auto) 0.01 K/uL (0.00-0.02); Immature Granulocytes % (auto) 0.2 %; Lymphocytes # (auto) 1.87 K/uL (1.2-3.4); Lymphocytes % (auto) 32.1 %; Mean Corpuscular Hemoglobin 28.6 pg (25-34); Mean Corpuscular Hgb Conc 34.3 g/dL (32-36); Mean Corpuscular Volume 83.4 fL (80-100); Mean Platelet Volume 9.2 fL (7.4-10.4); Monocytes # (auto) 0.29 K/uL (0.11-0.59); Neutrophils # (auto) 3.52 K/uL (1.4-6.5); Neutrophils % (auto) 60.3 %; Platelet Count 161 K/uL (130-400); RDW Coefficient of Variation 13.4 % (11.5-14.5); RDW Standard Deviation 39.7 fL (36.4-46.3); Red Blood Count 4.65 M/uL (4.7-6.1); White Blood Count 5.83 K/uL (4.8-10.8)
[2019-10-30] MEDS: SODIUM CHLORIDE 0.9% 1000ML 1,000 ML IV SCH (19:33)
[2019-10-30 19:36] LABS: Partial Thromboplastin Time 27.7 Seconds (21.0-31.0); Prothrombin Time 10.7 Seconds (9.0-12.0)
[2019-10-30 19:41] LABS: Appearance Urine Clear (Clear); Bilirubin Urine Negative (Negative); Blood Urine Negative (Negative); Color Urine Yellow; Glucose Urine UA 2+ (Negative); Ketones Urine Negative (Negative); Leukocyte Esterase Urine Negative (Negative); Nitrite Urine Negative (Negative); Protein Urine Negative (Negative); Specific Gravity Urine 1.013 (1.000-1.030); Urobilinogen Urine Negative (Negative); pH Urine 5.5 (4.5-7.5)
[2019-10-30 20:06] LABS: Albumin Level 3.8 gm/dl (3.4-5.0); Alkaline Phosphatase 57 U/L (45-117); Aspartate Aminotransferase 27 U/L (15-37); BUN Creatinine Ratio 15.6 (10-20); Bilirubin,Total 0.2 mg/dl (0.2-1); Blood Urea Nitrogen 20 mg/dl (7-18); Calcium 8.7 mg/dl (8.5-10.1); Carbon Dioxide 24 mmol/L (21-32); Chloride 103 mmol/L (98-107); Creatinine Clr Calc Pharmacy 78.8 ml/min; Est GFR (African American) 67.6; Est GFR (Non-African American) 58.3; Globulin 3.9 gm/dl (2.5-4.0); Glucose 277 mg/dl (70-99); Total Protein 7.7 gm/dl (6.4-8.2); Troponin I < 0.015 ng/ml (0-0.045)
[2019-10-30] MEDS ORDERED: CARBOHYDRATES FOR HYPOGLYCEMIA PO PRN ×2 (20:57→22:24)
[2019-10-30] MEDS ORDERED: GLUCOSE 10 TABS/TUBE PO PRN ×2 (20:57→22:24)
[2019-10-30] MEDS ORDERED: GLUCAGON FOR INJ 1 MG VIAL SQ PRN ×2 (20:57→22:24)
[2019-10-30] MEDS ORDERED: GLUCOSE 40% GEL 15 GM TUBE PO PRN ×2 (20:57→22:24)
[2019-10-30] MEDS ORDERED: DEXTROSE 50% 50 ML SYRINGE IV PRN ×2 (20:57→22:24)
--- NOTE | 2019-10-30 20:59 | History & Physical Report ---
Date of Service October 30, 2019 Assessment & Plan (1) Acute deep vein thrombosis (DVT) of left upper extremity: Acute DVT of LUE at site of PICC line. Extremity is warm with palpable pulses. Tenderness to palpation. He received Lovenox and Coumadin -Continue Lovenox and Coumadin -Check INR in AM -Hold ASA 325mg while patient is on anticoagulation bridging Present on Admission?: Yes (2) Osteomyelitis: Patient afebrile, HD stable. Foot is improving. He continues on IV Vancomycin. States he is on Linezolid and Flagyl as well? -Continue IV Vancomycin -Continue Flagyl -Will hold Linezolid for now -Continue dressing changes and wound care -Tylenol, Tramadol PRN Present on Admission?: Yes (3) Peripheral arterial disease: s/p angioplasty of left tibial with improved flow. -Hold ASA for now as patient is on Coumadin with Lovenox bridge, concern for bleeding -Resume Pravastatin 40mg po daily as patient no longer on Daptomycin Present on Admission?: Yes (4) Diabetes: Patient with poorly controlled Type II DM. He is on high dose insulin U- 500, 100u TID and was recently started on Trulicity. Last HgbA1C on 10/01/19 was 10.6 -Continue U-500, will place pharmacy consult to assist with glycemic management -Continue CC diet -Continue Gabapentin 800mg po TID for neuropathic pain -Continue Lisinopril 20mg po daily -Holding ASA as above Present on Admission?: Yes (5) Anxiety: Chronic. -Continue Clonazepam -Continue Sertraline Present on Admission?: Yes (6) Hypertension: Blood pressure stable at present -Continue Lisinopril -Continue to monitor Present on Admission?: Yes (7) Asthma: Chronic. Well controlled with no cough, SOB or wheeze -Albuterol PRN Present on Admission?: Yes (8) Depression: Chronic. Possibly exacerbation due to chronic illness and frequent hospitalizations -Continue Sertraline 50mg po qHS F/E/N -Heplock. Electrolytes WNL. CC diet as tolerated Ppx - Full dose anticoagulation, Coumadin with Lovenox bridging Code - Full per discussion with patient Dispo - Admission to medical floor Present on Admission?: Yes Admission and Anticipated Discharge Date Admission Date: 10/30/19 Anticipated date of discharge: 11/01/19 History of Present Illness Chief Complaint: LUE DVT Primary Care Provider: Guilherme Isaac MD Lenin Villa is a 64yo C male with history of poorly controlled DM II on high dose insulin, peripheral neuropathy, HTN, HLP, COPD. Patient injured his LLE in August 2019 while moving furniture. This injury progressed into a non-healing infection resulting in amputation of the 5th digit performed at [facility] on 06 September 2019. Patient was treated with IV Vancomycin and Ceftriaxone x 23 days. He then developed an infection of the PICC site and was hospitalized x 2 days for IV antibiotics (09/30/19 - 10/02/19). He had some worsening redness and swelling of the left foot and was seen in the ER. He had an MRI performed on 10/10/19 which showed possible early osteomyelitis of the distal fifth metatarsal. He was admitted and treated with IV pain medication as well as Vancomycin and Ceftriaxone. He had angiogram with balloon angioplasty of the left anterior tibial artery performed on 10/13/[address] Murray. He had a PICC line placed and was to receive Daptomycin x 6 weeks for his left 5th metatarsal osteomyelitis. He was discharged home on 10/16/19. Patient was transitioned to Vancomycin due to intolerance to Daptomycin - nausea/vomiting and emotional lability. He was recently started on Trulicity 0.75mg IV q Patient returned to the ER on 10/29/19 with complaint of LUE pain as well as redness and swelling. He was found to have a nearly occlusive DVT of the left axillary and subclavian veins around the PICC line as well as a nearly occlusive superficial venous thrombus is present in the left basilic vein. Patient was administered Vancomycin 1250mg IV as well as Lovenox and Coumadin. A new PICC line was not placed in the ER due to staffing therefore it was arranged for him to have the RUE PICC pulled with a LUE placed at the [facility] today. However, when patient arrived at the [facility] for these procedures he was instructed to come to the ER. Patient has subjective fevers and chills as well as nausea, vomiting and diarrhea at home. No additional complaints at this time. He is tired of being in the hospital and dealing with complications. He denies cough/CP/SOB/dysuria. No concerns for Covid-19 infection. ER Course: Acetaminophen, Zofran, NSS Allergies Allergy/AdvReac Type Severity Reaction Status Date / Time codeine Allergy Unknown RASH, Verified 10/30/19 17:02 VOMITING Penicillins Allergy Unknown RASH Verified 10/30/19 17:02 amoxicillin [From Augmentin] Allergy Vomiting Verified 10/30/19 17:02 ciprofloxacin [From Cipro] Allergy Hives Verified 10/30/19 17:02 clavulanic acid Allergy Vomiting Verified 10/30/19 17:02 [From Augmentin] exenatide [From Bydureon] Allergy . Verified 10/30/19 17:02 Home Medications Home Medications Medication Instructions Recorded Confirmed Type ascorbic acid (vitamin C) 500 mg 500 mg PO BID cap 01/20/19 10/30/19 History capsule irplmsvc-kwa-hidqv acid 0.4 1 tab PO QAM 01/20/19 10/30/19 History mg-lycopene 300 mcg-lutein 250 mcg tablet aspirin 325 mg tablet,delayed 325 mg PO QAM tab 05/22/19 10/30/19 History release acetaminophen [Tylenol Extra 1,000 mg PO Q8H PRN 09/15/19 10/30/19 History Strength] cyclobenzaprine 5 mg tablet 5 mg PO TID PRN #90 tab 10/03/19 10/30/19 Rx gabapentin 800 mg tablet 800 mg PO TID #90 tab 10/03/19 10/30/19 Rx insulin regular hum U-500 conc 100 unit SQ TIDM #6 ml 10/03/19 10/30/19 Rx lisinopril 20 mg tablet 20 mg PO HS #90 tab 10/03/19 10/30/19 Rx albuterol sulfate 2.5 mg INH Q8H PRN #180 ml 10/04/19 10/30/19 Rx chlorpheniramine maleate 4 mg 4 mg PO Q12H PRN #60 tab 10/09/19 10/30/19 Rx tablet dulaglutide 0.75 mg/0.5 mL 0.75 mg SQ WEEKLY #2 ml 10/09/19 10/30/19 Rx subcutaneous pen injector tramadol 50 mg PO Q6H PRN #15 tab 10/16/19 10/30/19 Rx Pic Line reinsertion #1 ea 10/17/19 10/30/19 Rx temazepam [Restoril] 30 mg PO HS PRN 10/17/19 10/30/19 History clonazepam 1 mg tablet 1 mg PO TID #90 tab 10/25/19 10/30/19 Rx Lactobacillus acidoph-L.bulgar 3 tab PO QAM 10/29/19 10/30/19 History [Lactinex] diphenhydramine HCl [Benadryl] 50 mg PO HS PRN 10/29/19 10/30/19 History enoxaparin [Lovenox] 120 mg SQ Q12H 5 Days #8 ml 10/29/19 10/30/19 Rx ondansetron HCl [Zofran] 4 mg PO Q8H PRN 10/29/19 10/30/19 History sertraline 50 mg PO HS 10/29/19 10/30/19 History vancomycin 1.25 g IV Q12H 10/29/19 10/30/19 History warfarin 5 mg PO DAILY #5 tab 10/29/19 10/30/19 Rx [facility] Referral #1 ea 10/30/19 10/30/19 Rx linezolid [Zyvox] 600 mg PO BID 10/30/19 10/30/19 History metronidazole [Flagyl] 500 mg PO TID 10/30/19 10/30/19 History Past Med/Surg History Medical History Anxiety (Chronic) Asthma (Acute) Depression (Acute) Diabetes (Chronic) Hyperlipidemia Hypertension (Chronic) Insomnia (Acute) Irritable bowel syndrome (IBS) (Acute) Lumbar radiculopathy (Acute) Macular degeneration (Acute) Obese (Acute) Peripheral arterial disease PICC (peripherally inserted central catheter) in place (Acute) PTSD (post-traumatic stress disorder) (Chronic) Type 2 diabetes, uncontrolled, with neuropathy Surgical History History of amputation left 5th toe -09/06/19 at [facility] History of back surgery History of tonsillectomy Hx of tooth extraction Family History Mother , 57 Cancer Cervical cancer Esophageal cancer Father Myocardial infarction Colon cancer Sister , 53 AML (acute myelogenous leukemia) Stroke Scleroderma Sister Fibrocystic breast disease Sister Anxiety Anorexia nervosa Denies family history of Ovarian cancer Prostate cancer Breast cancer Social History Smoking Status: Former smoker Tobacco Type: Cigarettes Age Started Using Tobacco: 26; Age Quit Using Tobacco: 37; Cigarettes Per Day: Social smoker 1 pk lasted 1 month; Second Hand Exposure: No; Hx Alcohol Use: No Hx Substance Use: No Preferred Language: Mohawk Communication Ability: Effective Visual Impairment: No Limitations Hearing Ability: Normal [employer] Food & Cooking Required: No Beliefs That Will Affect Care: None marital status: Life Partner Current Living Situation: Spouse current occupational status: retired Feels Safe at Home: Yes Childhood Exposure to Second-Hand Smoke: Yes Dental Care, Regularly: Yes Seatbelt Use: always Sunscreen Use: Yes Review of Systems Review of Systems: All systems reviewed & are unremarkable except as noted in HPI & below Physical Exam Physical Exam: General: patient resting comfortably, NAD, non-toxic in appearance, AA&O x 4 Skin: warm, dry, intact, no rashes or lesions HEENT: NC/AT, PERRL, EOMI, anicteric sclera, conjunctiva without injection, external ear normal to inspection and nontender, nares patent, moist mucus membranes, dentition intact, no oropharyngeal lesions, neck supple, trachea midline, no LAD, no thyromegaly, no JVD Heart: +S1/S2, regular, 3/6 JESSICA at right 2nd ICS Lungs: equal air entry bilaterally, no rales/rhonchi/wheezes Abd: +BS, soft, NT/ND, no masses/organomegaly/ascites Ext: warm, 2+ pulses in UE, 1+ pulses in LE, dressing in place LLE, LUE PICC with slight warmth/tenderness and swelling of forearm and upper arm, new RUE PICC line in place with dressing intact, no bleeding/drainage or erythema Neuro: nonfocal, patient AA&O x 4, speech intact, no facial droop, moving all extremities on command with equal strength 5/5 Results & Data Results & Data ([facility]) Vital Signs (Past 12 Hours) Vital Signs Temp Pulse Resp BP Pulse Ox 10/30/19 20:30 80 19 171/76 H 98 10/30/19 20:15 80 18 125/64 91 10/30/19 20:11 20 94 07/27/20 20:01 80 13 10/30/19 20:00 80 18 163/77 H 91 10/30/19 19:45 77 18 164/78 H 92 10/30/19 19:33 86 18 162/69 H 96 10/30/19 19:30 80 16 97 10/30/19 19:20 97 10/30/19 19:17 84 13 96 10/30/19 19:15 86 15 147/74 H 95 10/30/19 15:18 37.0 C 107 H 18 123/68 97 Laboratory Results Lab Results 10/30/19 10/30/19 10/30/19 Range/Units 19:15 19:16 19:16 WBC 5.83 (4.8-10.8) K/uL RBC 4.65 L (4.7-6.1) M/uL Hgb 13.3 L (14.0-18.0) g/dL Hct 38.8 L (42-52) % MCV 83.4 (80-100) fL MCH 28.6 (25-34) pg MCHC 34.3 (32-36) g/dL RDW Std Deviation 39.7 (36.4-46.3) fL RDW Coeff of Ramos 13.4 (11.5-14.5) % Plt Count 161 (130-400) K/uL MPV 9.2 (7.4-10.4) fL Immature Gran % (Auto) 0.2 % Neut % (Auto) 60.3 % Lymph % (Auto) 32.1 % [place] % (Auto) 5.0 % Eos % (Auto) 2.1 % Baso % (Auto) 0.3 % Neut # (Auto) 3.52 (1.4-6.5) K/uL Lymph # (Auto) 1.87 (1.2-3.4) K/uL [place] # (Auto) 0.29 (0.11-0.59) K/uL Eos # (Auto) 0.12 (0-0.5) K/uL Baso # (Auto) 0.02 (0-0.2) K/uL Immature Gran # (Auto) 0.01 (0.00-0.02) K/uL PT 10.7 (9.0-12.0) Seconds INR 1.0 (0.9-1.1) APTT 27.7 (21.0-31.0) Seconds PTT Ratio 1.0 Sodium (136-145) mmol/L Potassium (3.5-5.1) mmol/L Chloride (98-107) mmol/L Carbon Dioxide (21-32) mmol/L Anion Gap (3-11) BUN (7-18) mg/dl Creatinine (0.6-1.4) mg/dl Est Cr Clr Drug Dosing ml/min Est GFR ( Amer) Est GFR (Non-Af Amer) BUN/Creatinine Ratio (10-20) Glucose (70-99) mg/dl POC Glucose (70-99) mg/dl Lactate (0.4-2.0) mmol/L Calcium (8.5-10.1) mg/dl Magnesium (1.8-2.4) mg/dl Total Bilirubin (0.2-1) mg/dl AST (15-37) U/L ALT (12-78) U/L Alkaline Phosphatase (45-117) U/L Troponin I (0-0.045) ng/ml Total Protein (6.4-8.2) gm/dl Albumin (3.4-5.0) gm/dl Globulin (2.5-4.0) gm/dl Albumin/Globulin Ratio (0.9-2) Procalcitonin (0-0.5) ng/ml Urine Color Yellow Urine Appearance Clear (Clear) Urine pH 5.5 (4.5-7.5) Ur Specific [place] 1.013 (1.000-1.030) Urine Protein Negative (Negative) Urine Glucose (UA) 2+ H (Negative) Urine Ketones Negative (Negative) Urine Blood Negative (Negative) Urine Nitrite Negative (Negative) Urine Bilirubin Negative (Negative) Urine Urobilinogen Negative (Negative) Ur Leukocyte Esterase Negative (Negative) 10/30/19 10/30/19 10/30/19 Range/Units 19:16 19:16 19:16 WBC (4.8-10.8) K/uL RBC (4.7-6.1) M/uL Hgb (14.0-18.0) g/dL Hct (42-52) % MCV (80-100) fL MCH (25-34) pg MCHC (32-36) g/dL RDW Std Deviation (36.4-46.3) fL RDW Coeff of Ramos (11.5-14.5) % Plt Count (130-400) K/uL MPV (7.4-10.4) fL Immature Gran % (Auto) % Neut % (Auto) % Lymph % (Auto) % [place] % (Auto) % Eos % (Auto) % Baso % (Auto) % Neut # (Auto) (1.4-6.5) K/uL Lymph # (Auto) (1.2-3.4) K/uL [place] # (Auto) (0.11-0.59) K/uL Eos # (Auto) (0-0.5) K/uL Baso # (Auto) (0-0.2) K/uL Immature Gran # (Auto) (0.00-0.02) K/uL PT (9.0-12.0) Seconds INR (0.9-1.1) APTT (21.0-31.0) Seconds PTT Ratio Sodium 134 L (136-145) mmol/L Potassium 4.9 (3.5-5.1) mmol/L Chloride 103 (98-107) mmol/L Carbon Dioxide 24 (21-32) mmol/L Anion Gap 7.0 (3-11) BUN 20 H (7-18) mg/dl Creatinine 1.28 (0.6-1.4) mg/dl Est Cr Clr Drug Dosing 78.8 ml/min Est GFR ( Amer) 67.6 Est GFR (Non-Af Amer) 58.3 BUN/Creatinine Ratio 15.6 (10-20) Glucose 277 H (70-99) mg/dl POC Glucose (70-99) mg/dl Lactate 0.5 (0.4-2.0) mmol/L Calcium 8.7 (8.5-10.1) mg/dl Magnesium 2.0 (1.8-2.4) mg/dl Total Bilirubin 0.2 (0.2-1) mg/dl AST 27 (15-37) U/L ALT 42 (12-78) U/L Alkaline Phosphatase 57 (45-117) U/L Troponin I < 0.015 (0-0.045) ng/ml Total Protein 7.7 (6.4-8.2) gm/dl Albumin 3.8 (3.4-5.0) gm/dl Globulin 3.9 (2.5-4.0) gm/dl Albumin/Globulin Ratio 1.0 (0.9-2) Procalcitonin < 0.05 (0-0.5) ng/ml Urine Color Urine Appearance (Clear) Urine pH (4.5-7.5) Ur Specific [place] (1.000-1.030) Urine Protein (Negative) Urine Glucose (UA) (Negative) Urine Ketones (Negative) Urine Blood (Negative) Urine Nitrite (Negative) Urine Bilirubin (Negative) Urine Urobilinogen (Negative) Ur Leukocyte Esterase (Negative) 10/30/19 Range/Units 20:46 WBC (4.8-10.8) K/uL RBC (4.7-6.1) M/uL Hgb (14.0-18.0) g/dL Hct (42-52) % MCV (80-100) fL MCH (25-34) pg MCHC (32-36) g/dL RDW Std Deviation (36.4-46.3) fL RDW Coeff of Ramos (11.5-14.5) % Plt Count (130-400) K/uL MPV (7.4-10.4) fL Immature Gran % (Auto) % Neut % (Auto) % Lymph % (Auto) % [place] % (Auto) % Eos % (Auto) % Baso % (Auto) % Neut # (Auto) (1.4-6.5) K/uL Lymph # (Auto) (1.2-3.4) K/uL [place] # (Auto) (0.11-0.59) K/uL Eos # (Auto) (0-0.5) K/uL Baso # (Auto) (0-0.2) K/uL Immature Gran # (Auto) (0.00-0.02) K/uL PT (9.0-12.0) Seconds INR (0.9-1.1) APTT (21.0-31.0) Seconds PTT Ratio Sodium (136-145) mmol/L Potassium (3.5-5.1) mmol/L Chloride (98-107) mmol/L Carbon Dioxide (21-32) mmol/L Anion Gap (3-11) BUN (7-18) mg/dl Creatinine (0.6-1.4) mg/dl Est Cr Clr Drug Dosing ml/min Est GFR ( Amer) Est GFR (Non-Af Amer) BUN/Creatinine Ratio (10-20) Glucose (70-99) mg/dl POC Glucose 244 H (70-99) mg/dl Lactate (0.4-2.0) mmol/L Calcium (8.5-10.1) mg/dl Magnesium (1.8-2.4) mg/dl Total Bilirubin (0.2-1) mg/dl AST (15-37) U/L ALT (12-78) U/L Alkaline Phosphatase (45-117) U/L Troponin I (0-0.045) ng/ml Total Protein (6.4-8.2) gm/dl Albumin (3.4-5.0) gm/dl Globulin (2.5-4.0) gm/dl Albumin/Globulin Ratio (0.9-2) Procalcitonin (0-0.5) ng/ml Urine Color Urine Appearance (Clear) Urine pH (4.5-7.5) Ur Specific [place] (1.000-1.030) Urine Protein (Negative) Urine Glucose (UA) (Negative) Urine Ketones (Negative) Urine Blood (Negative) Urine Nitrite (Negative) Urine Bilirubin (Negative) Urine Urobilinogen (Negative) Ur Leukocyte Esterase (Negative) Diagnostic Findings XR chest 1V portable CLINICAL HISTORY: SEPSIS COMPARISON STUDY: 10/29/2019 FINDINGS: The cardiac and mediastinal contours are normal. There is no evidence of focal pulmonary consolidation. There is no evidence of failure. No pleural effusions are visualized.[A left-sided PICC catheter remains unchanged in position. IMPRESSION: No active disease in the chest. ACT 112: Negative or not required by law. Electronically signed by: Roderick Santiago M.D. 10/30/2019 6:09 PM ECG Additional Comments: The study shows SR at 79bpm with 1st degree AV block, EJ=720, QRS=98, MCe=841, no acute ischemic changes Code Status & VTE Plan Code Status FULL VTE Prophylaxis Plan VTE Prophylaxis will be ordered: Yes PG Care Time/CCT Total # of Minutes Spent Total Time Spent with Patient: Total time spent is greater than 50% in coordination of care (as documented) at patient's floor/unit and/or counseling patient: Coding Level of Care Code 43634 Initial Inpt Care Lvl 3 Diagnoses Acute deep vein thrombosis (DVT) of left upper extremity I82.622 Affected thrombotic vein of extremity: unspecified vein of extremity Osteomyelitis M86.9 Osteomyelitis type: unspecified type Osteomyelitis location: foot Laterality: left Peripheral arterial disease I73.9 Diabetes E11.42; Z79.4 Diabetes mellitus type: type 2 Diabetes mellitus nursing home insulin use: with nursing home use Diabetes mellitus complication status: with neurologic complications Diabetes mellitus complication detail: with polyneuropathy Anxiety F41.9 Hypertension I10 Hypertension type: essential hypertension Asthma J45.20 Asthma severity: mild Asthma persistence: intermittent Asthma complication type: uncomplicated Depression F32.9 Depression Type: major depressive disorder Major depression recurrence: unspecified whether recurrent Active/Remission status: remission status unspecified (1) Acute deep vein thrombosis (DVT) of left upper extremity Affected thrombotic vein of extremity: unspecified vein of extremity Qualified Code(s): I82.622 - Acute embolism and thrombosis of deep veins of left upper extremity (2) Osteomyelitis Osteomyelitis type: unspecified type Osteomyelitis location: foot Laterality: left Qualified Code(s): M86.9 - Osteomyelitis, unspecified (3) Hypertension Hypertension type: essential hypertension Qualified Code(s): I10 - Essential (primary) hypertension (4) Asthma Asthma severity: mild Asthma persistence: intermittent Asthma complication type: uncomplicated Qualified Code(s): J45.20 - Mild intermittent asthma, uncomplicated (5) Depression Depression Type: major depressive disorder Major depression recurrence: unspecified whether recurrent Active/Remission status: remission status unspecified Qualified Code(s): F32.9 - Major depressive disorder, single episode, unspecified (6) Diabetes Diabetes mellitus type: type 2 Diabetes mellitus 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
[2019-10-30] MEDS ORDERED: INSULIN ASPART 100 UNITS/ML 3 ML PEN SC SCH (21:00)
[2019-10-30 21:38] LABS: Alanine Aminotransferase 42 U/L (12-78); Potassium 4.9 mmol/L (3.5-5.1); Sodium 134 mmol/L (136-145)
[2019-10-30] MEDS ORDERED: [UNRECOGNIZED DRUG - REMARK] PO PRN (22:24)
[2019-10-30] MEDS ORDERED: NON-FORMULARY MEDICATION (Vancomycin 1.25 GM) IV SCH (22:24)
[2019-10-30] MEDS ORDERED: NON-FORMULARY MEDICATION (Dulaglutide [Trulicity] 0.75 MG) SQ SCH (22:24)
[2019-10-30] MEDS ORDERED: LINEZOLID CONSULT ACTIVE PRN (22:24)
[2019-10-30] MEDS ORDERED: ONDANSETRON INJ 2 MG/ML 2 ML VIAL IV PRN (22:24)
[2019-10-30] MEDS ORDERED: CYCLOBENZAPRINE HCL 5 MG TAB PO PRN (22:24)
[2019-10-30] MEDS ORDERED: ALBUTEROL 0.083% NEBU SOLN 3 ML VIAL INH PRN (22:24)
[2019-10-30] MEDS ORDERED: PHARMACY GLYCEMIC MGMT CONSULT PRN (22:31)
[2019-10-30] MEDS ORDERED: INSULIN HUMAN NPH SC SCH (23:15)
[2019-10-30] MEDS: TRAMADOL HCL 50 MG TABLET PO PRN (23:18)
[2019-10-30] MEDS: SERTRALINE HCL 50 MG TABLET PO SCH (23:23)
[2019-10-30] MEDS: lisinopriL 20 MG TAB PO SCH (23:23)
[2019-10-30] MEDS: GABAPENTIN 800 MG TAB PO SCH (23:24)
[2019-10-30] MEDS: ASCORBIC ACID 500 MG TAB PO SCH (23:24)
[2019-10-30] MEDS: metroNIDAZOLE 500 MG TAB PO SCH (23:24)
[2019-10-30] MEDS: ENOXAPARIN INJ 120 MG/0.8 ML SYR SQ SCH (23:25)
[2019-10-30] MEDS: INSULIN ASPART 100 UNITS/ML 3 ML PEN SC SCH (23:28)
[2019-10-30] MEDS: clonazePAM 1 MG TAB PO SCH (23:31)
[2019-10-30] MEDS: TEMAZEPAM 15 MG CAPSULE PO PRN (23:31)
[2019-10-30] MEDS: ACETAMINOPHEN 500 MG TAB PO PRN (23:31)
[2019-10-31] MEDS ORDERED: VANCOMYCIN HCL 2,000 MG in SODIUM CHLORIDE 0.9% 500 ML IV ONE
[2019-10-31] MEDS ORDERED: INSULIN ASPART 100 UNITS/ML 3 ML PEN SC SCH ×2 (02:00→03:00)
[2019-10-31] MEDS: SODIUM CHLORIDE 0.9% 1000ML 1,000 ML IV SCH ×2 (03:12→12:14)
--- NOTE | 2019-10-31 04:07 | Pharmacy Report ---
Pharmacy Abx Initial Consult - Date of Service October 31, 2019 - Pharmacy Dosing Scope Date of Consult: 10/30/19 Consultation requested by: Dr. Melina Perera Pharmacy is consulted to continue Vancomycin IV dosing therapy, order appropriate labs and adjust drug dose/frequency. - Subjective The patient is a 64 year old M admitted on 10/30/19 20:49 with DVT and was being treated at home for Osteomyelitis with IV Vancomycin and possibly Flagyl. There was also mention of him taking Zyvox PO. He was recently an inpatient known to us and being treated with IV Vancomycin. He was converted to Daptomycin IV for extended IV abx dosing need for Osteomyelitis. He unfortunately did not tolerate Dapto and was back on IV Vancomycin at home at 1250mg IV every 12 hours. He presented to ED on the and received his 2nd dose at around 1900. He claims to have had trouble with his PICC line and only received a partial dose this morning. Given the history we chose to order a stat random level which returned at 6.9 mcg/ml from 2300. - Objective Height: 6 ft Weight: 123.6 kg Vital Signs (Past 12hrs): Vital Signs Temp Pulse Pulse Pulse Resp BP BP 10/30/19 23:23 36.7 C 74 16 160/79 H 10/30/19 22:03 36.9 C 84 20 10/30/19 21:01 77 18 169/79 H 10/30/19 21:00 80 12 10/30/19 20:45 82 17 178/93 H 10/30/19 20:30 80 19 171/76 H 10/30/19 20:15 80 18 125/64 10/30/19 20:11 20 10/30/19 20:01 80 13 10/30/19 20:00 80 18 163/77 H 10/30/19 19:45 77 18 164/78 H 10/30/19 19:33 86 18 162/69 H 10/30/19 19:30 80 16 10/30/19 19:20 10/30/19 19:17 84 13 10/30/19 19:15 86 15 147/74 H BP Pulse Ox 10/30/19 23:23 98 10/30/19 22:03 163/83 H 97 10/30/19 21:01 95 10/30/19 21:00 97 10/30/19 20:45 07/27/20 20:30 98 10/30/19 20:15 91 10/30/19 20:11 94 10/30/19 20:01 10/30/19 20:00 91 10/30/19 19:45 92 10/30/19 19:33 96 10/30/19 19:30 97 10/30/19 19:20 97 10/30/19 19:17 96 10/30/19 19:15 95 Lab Results (24hrs): Laboratory Tests (24 Hours) 10/30/19 10/30/19 10/30/19 23:01 19:16 19:16 WBC Neut # (Auto) Creatinine 1.28 Est Cr Clr Drug Dosing 78.8 Procalcitonin < 0.05 Random Vancomycin 6.9 10/30/19 19:16 WBC 5.83 Neut # (Auto) 3.52 Creatinine Est Cr Clr Drug Dosing Procalcitonin Random Vancomycin Micro Results: 10/30/19 19:15 Aerobic Blood Culture - Pending Blood Anaerobic Blood Culture - Pending 10/30/19 19:15 Aerobic Blood Culture - Pending Blood Anaerobic Blood Culture - Pending - Risk Factors for Resistance * Resident in a fpc or extended-care facility * Hospitalization for 48 hours or more within the past 90 days * Current hospitalization > 5 days * Chronic dialysis within the past 30 days * Immunocompromised (chronic steroid therapy, chemotherapy, immunomodulators) * History of infection with a multidrug-resistant organism: [organism] [site of infection] [date] * Antimicrobial use within the last 90 days [include specific drugs, if known] - Assessment & Plan Assessment 64 year old M with Osteomyelitis Plan Vancomycin IV * Estimated PK Parameters: Vd 0.55 L/kg, Carlos 0.070 hr-1, t1/2 9.9 hr * Loading dose: 2000 mg (16 mg/kg) re load after random of 6.9mcg/ml * Maintenance dose: 1250 mg IV (~10mg/kg) every 12 hours (home IV dose) * Goal trough level : 15-20 mcg/mL * Trough level ordered prior to 1000 dose on 11/01/19 * A less than traditional dose has been selected due to likelihood of drug accumulation in obese patient. Pharmacy will continue to follow and will adjust dose/frequency as necessary. Thank you.
[2019-10-31] MEDS ORDERED: VANCOMYCIN CONSULT ACTIVE PRN (07:29)
[2019-10-31] MEDS: ACETAMINOPHEN 500 MG TAB PO PRN ×2 (07:55→19:26)
[2019-10-31] MEDS ORDERED: NON-FORMULARY MEDICATION (Insulin Regular Hum U-500 Conc [Humulin R U-500 (Conc) Kwikpen] SQ SCH (08:00)
[2019-10-31 08:31] LABS: Basophils # (auto) 0.03 K/uL (0-0.2); Basophils % (auto) 0.6 %; Eosinophils # (auto) 0.14 K/uL (0-0.5); Hematocrit (blood only) 36.9 % (42-52); Hemoglobin 12.5 g/dL (14.0-18.0); Lymphocytes # (auto) 1.85 K/uL (1.2-3.4); Lymphocytes % (auto) 39.8 %; Mean Corpuscular Hemoglobin 28.3 pg (25-34); Mean Corpuscular Hgb Conc 33.9 g/dL (32-36); Mean Corpuscular Volume 83.7 fL (80-100); Mean Platelet Volume 8.7 fL (7.4-10.4); Monocytes # (auto) 0.29 K/uL (0.11-0.59); Monocytes % (auto) 6.2 %; Neutrophils # (auto) 2.34 K/uL (1.4-6.5); Neutrophils % (auto) 50.4 %; Platelet Count 119 K/uL (130-400); RDW Coefficient of Variation 13.5 % (11.5-14.5); RDW Standard Deviation 40.3 fL (36.4-46.3); Red Blood Count 4.41 M/uL (4.7-6.1); White Blood Count 4.65 K/uL (4.8-10.8)
[2019-10-31 08:40] LABS: INR 1.1 (0.9-1.1); Prothrombin Time 11.8 Seconds (9.0-12.0)
[2019-10-31] MEDS ORDERED: LACTOBACILLUS ACIDOPHILUS PO SCH (09:00)
[2019-10-31] MEDS ORDERED: LACTOBACILLUS BULGARICUS PO SCH (09:00)
[2019-10-31] MEDS: GABAPENTIN 800 MG TAB PO SCH ×3 (09:04→21:13)
[2019-10-31] MEDS: ASCORBIC ACID 500 MG TAB PO SCH ×2 (09:04→21:13)
[2019-10-31] MEDS: metroNIDAZOLE 500 MG TAB PO SCH ×3 (09:04→21:12)
[2019-10-31] MEDS: clonazePAM 1 MG TAB PO SCH ×3 (09:05→21:18)
[2019-10-31] MEDS: INSULIN ASPART 100 UNITS/ML 3 ML PEN SC SCH ×4 (09:07→21:19)
[2019-10-31] MEDS: INSULIN HUMAN NPH SC SCH ×2 (09:09→18:08)
[2019-10-31 09:10] LABS: BUN Creatinine Ratio 13.8 (10-20); Calcium 8.4 mg/dl (8.5-10.1); Creatinine Clr Calc Pharmacy 96.2 ml/min; Est GFR (African American) 86.9; Potassium 3.9 mmol/L (3.5-5.1)
--- NOTE | 2019-10-31 09:58 | Pharmacy Report ---
Glycemic Control Consultation - Date of Service October 31, 2019 - Scope Scope: Glycemic Pharmacist consulted for glycemic control and to write orders per [facility] inpatient glycemic control protocol. - Objective Weight: 123.6 kg Accuchecks BSG (last 24hrs): Laboratory Data (last 24hrs): 10/30/19 10/31/19 19:16 08:13 Potassium 4.9 3.9 D Carbon Dioxide 24 23 Anion Gap 7.0 7.0 Creatinine 1.28 1.04 Est Cr Clr Drug Dosing 78.8 96.2 - Recent Pertinent Medications Outpatient Anti-diabetic Regimen: * U-500 Regular Insulin 100 units SC TIDM + Trulicity 0.75 mg SC every * A1c = 10.6% (10/01/2019) The patient is currently receiving: * Basal insulin: NPH 35 units SC BIDM * Correctional Insulin: Novolog Correction per scale ACHS Goal Range: Low 110 mg/dL - High 140 mg/dL Correction Factor: 15 mg/dL/unit * Prandial insulin: Per carb ratio of 1 unit per 3 grams CHO consumed Risk Factors for Insulin Resistance: * Infection: * Vancomycin IV + Metronidazole PO * Diet: * T2DM - Assessment & Plan Assessment & Plan: ASSESSMENT: * 64 yo M admitted [facility]/29 from [facility] secondary to subjective fevers and chills as well as nausea, vomiting and diarrhea. * Underwent LLE 5th digit amputation on 09/06/2019 at [facility] [place]. Developed osteomyelitis following amputation and has been on IV Vancomycin + PO Metronidazole + PO Linezlolid at home. PICC line is present and patient was found to have a LUE DVT on 10/29/2019. [facility] 10/30/2019 to have PICC line replaced. * A1c has improved since February 2019: 12.8% --> 11.1% --> 10.6%. Patient was most recently started on Trulicity 0.75 mg SC every . Pharmacy is consulted for glycemic management and patient is well-known to our service. Will utilize previous admission data to help with inpatient insulin regimen during this admission. Patient was well-controlled during previous admission on NPH insulin BIDM. * ADA & AACE recommend a goal blood sugar range 140-180 mg/dl for the majority of critically ill & non-critically ill patients. However, more stringent targets may be selected in individual cases. Will utilize more stringent goal of 110-140mg/dl based on patient age & comorbidities. Additionally, tighter glycemic control is warranted to facilitate wound/infection healing. * POC BSG was 244 mg/dL last evening upon admission. Patient was given 35 units of NPH. metal tester RN documented that 300 units of Novolog was given last evening. Believe this to be an error but could not confirm with day shift RN. Correct amount patient should have received was 12 units of Novolog (7 units correctional + 5 units carb coverage). Overnight BSG was 138 mg/dL, no insulin administered. * Fasting BSG this AM was 96 mg/dL - decreased NPH scale secondary to this * Lunchtime BSG today was 125 mg/dL - loosened carb ratio this morning PLAN FOR INPATIENT GLYCEMIC CONTROL: * Basal insulin - decreased * NPH 10-20 units SQ BIDM (see eMAR for further details) * Bolus insulin - loosened * NovoLog per scale ACHS or Q6hrs while NPO * Goal Range: Low 110 mg/dL - High 140 mg/dL * Correction Factor: 15 mg/dL/unit * Nutritional / Prandial insulin per carb ratio of 1 unit per 4 grams CHO consumed * Please note that the plan above was derived based on current level of insulin resistance and hospital stress. These recommendations are appropriate for inpatient admission only. Plan of care upon discharge will need to be reassessed to avoid potential outpatient hypo/hyperglycemia. Thank you.
[2019-10-31] MEDS: VANCOMYCIN HCL 1,250 MG in SODIUM CHLORIDE 0.9% 250 ML IV SCH ×2 (10:48→22:12)
[2019-10-31] MEDS: ENOXAPARIN INJ 120 MG/0.8 ML SYR SQ SCH ×2 (10:48→22:15)
--- NOTE | 2019-10-31 11:16 | Hospitalist Progress Note ---
Date of Service October 31, 2019 Assessment & Plan (1) Acute deep vein thrombosis (DVT) of left upper extremity: * Acute DVT of LUE at site of PICC line. On admission, extremity is warm with palpable pulses, tender to palpation. Had received Lovenox and Coumadin * Continue Lovenox and Coumadin * INR 1.1 * Check INR in AM * Hold ASA 325mg while patient is on anticoagulation bridging * PICC line discontinued --> IV team placed new PICC line RUE 10/30 -- will need for continued Vancomycin for Osteo (started beginning of October and to be continued for 6 weeks). CM to asssit (2) Osteomyelitis: * Patient afebrile, HD stable. Foot is improving. He continues on IV Vancomycin. States he is on Linezolid and Flagyl as well? * Continue IV Vancomycin * Continue Flagyl * Will hold Linezolid for now * Continue dressing changes and wound care -- continued dressing changes as recommended by wound RN last admission with Aquacell Ag and optifoam dressings * Tylenol, tramadol prn pain (3) Peripheral arterial disease: * s/p angioplasty of left tibial with improved flow. * Hold ASA for now as patient is on Coumadin with Lovenox bridge, concern for bleeding * Resumed Pravastatin 40mg po daily as patient no longer on Daptomycin (4) Diabetes: * Patient with poorly controlled Type II DM. He is on high dose insulin U-500, 100u TID and was recently started on Trulicity. Last HgbA1C on 10/01/19 was 10.6 * Continue U-500, will place pharmacy consult to assist with glycemic management * Continue Carb count diet * Continue Gabapentin 800mg po TID for neuropathic pain * Continue Lisinopril 20mg po daily * Holding ASA as above (5) Anxiety: * Chronic. * -Continue Clonazepam 1mg PO TID scheduled * Continue home sertraline 50mg HS (6) Hypertension: * Blood pressure elevated at 161/79 -- likely some aspect of pain (also was on IVF at 125cc/hr) * D/c IVF * Continue home lisinopril 20mg * Continue to monitor (7) Asthma: * Chronic. Well controlled with no cough, SOB or wheeze * Albuterol PRN (8) Depression: * Chronic. Possibly exacerbation due to chronic illness and frequent hospitalizations * Continue Sertraline 50mg po qHS (9) DVT prophylaxis: * Coumadin, Lovenox * Plt low at 119 (chronically low per patient, but will need to continue to monitor) Dispo: from home, bridging with coumadin/lovenox until therapeutic. likely to remain inpatient another 2 days Admission and Anticipated Discharge Date Admission Date: October 30, 2019 Supervising Physician Co-Signing Physician Notes Attending Attestation: Chart reviewed in detail, care plan d/w PA Deirdre Henry. I agree w/ the farrell components of her documentation. LUE PICC-line associated DVT. Line has been d/c. Is on lovenox with coumadin. New PICC placed in RUE. Vancomycin now being used in emily of daptomycin for left foot osteo. Dispo planning. Manoj Dangelo MD Subjective Patient evaluated today. Pain, erythema, swelling already much improved. Pain tolerable with medications ordered. Frustrated with multiple hospitalizations and complications and hopeful to be discharged as soon as possible once INR therapeutic. Patient states he should have stayed on Wednesday when he came to the ER as he was sent by [facility] the next day to the ER after he had already picked up rx for lovenox, which he has at home now. Patient denies any current fever, chills, chest pain, shortness of breath, n/v at this time. Diarrhea with vancomycin not changed from prior. Patient states he already was seen by IV team this morning and now has PICC line in RUE. He states he was originally told he may need wound care for his 5th digit amputa tion but that he feels it has been closing nicely and may not need this. He states he had lack of sensation in that extremity prior to Dr Murray placing tibial stent earlier this month. He also started Trulicity recently as he would like to improve his overall health. He also has follow up outpatient for sleep study but was previously pushed back in setting of current COVID-19 pandemic. He does note that last time he was inpatient they had ordered his klonopin prn and he takes TID and had withdrawal. Only medication not on MAR is simethicone which he states he takes 30minutes before meals and would like to be continued. Stated that I would order this upon leaving the room to keep him regular. All questions/concerns addressed at this time. Review of Systems Review of Systems: All systems reviewed & are unremarkable except as noted in HPI & below Physical Exam Constitutional: WD/WN, vitals as above + obese; no acute distress Eyes: PERRL, conjunctivae normal, anicteric sclerae ENMT: external ear and nose normal, oropharynx normal Neck: trachea midline, no thyromegaly Respiratory: normal respiratory effort, lungs clear to auscultation Cardiovascular: RRR, no murmur, no edema Gastrointestinal (Abdomen): normal bowel sounds, soft, nontender, no hepatosplenomegaly Musculoskeletal: no cyanosis or clubbing, extremities motor strength 5/5 Skin: 5th digit amputation LEFT foot with dressing -- minimal drainage on dressing with flap present. [facility] minimal warm, trace erythema at site of previous PICC. Nontender to palpation. Neurologic: PERRL, EOMI, accommodation nl, no face palsy, no dysarthria Psychiatric: Orientation: alert, oriented x 3 and cooperative Lymphatic: no cervical or axillary lymphadenopathy Results & Data Results & Data ([facility]) Vital Signs (Past 12 Hours) Vital Signs Temp Pulse Resp BP Pulse Ox 10/31/19 09:57 36.6 C 68 18 123/70 98 10/31/19 04:42 62 16 112/69 10/30/19 23:23 36.7 C 74 16 160/79 H 98 Laboratory Results 10/31/19 10/31/19 10/31/19 Range/Units 11:58 08:13 08:13 WBC (4.8-10.8) K/uL RBC (4.7-6.1) M/uL Hgb (14.0-18.0) g/dL Hct (42-52) % MCV (80-100) fL MCH (25-34) pg MCHC (32-36) g/dL RDW Std Deviation (36.4-46.3) fL RDW Coeff of Ramos (11.5-14.5) % Plt Count (130-400) K/uL MPV (7.4-10.4) fL Immature Gran % (Auto) % Neut % (Auto) % Lymph % (Auto) % Frio % (Auto) % Eos % (Auto) % Baso % (Auto) % Neut # (Auto) (1.4-6.5) K/uL Lymph # (Auto) (1.2-3.4) K/uL Frio # (Auto) (0.11-0.59) K/uL Eos # (Auto) (0-0.5) K/uL Baso # (Auto) (0-0.2) K/uL Immature Gran # (Auto) (0.00-0.02) K/uL PT 11.8 (9.0-12.0) Seconds INR 1.1 (0.9-1.1) APTT (21.0-31.0) Seconds PTT Ratio Sodium 138 (136-145) mmol/L Potassium 3.9 D (3.5-5.1) mmol/L Chloride 107 (98-107) mmol/L Carbon Dioxide 23 (21-32) mmol/L Anion Gap 7.0 (3-11) BUN 14 (7-18) mg/dl Creatinine 1.04 (0.6-1.4) mg/dl Est Cr Clr Drug Dosing 96.2 ml/min Est GFR ( Amer) 86.9 Est GFR (Non-Af Amer) 75.0 BUN/Creatinine Ratio 13.8 (10-20) Glucose 111 H (70-99) mg/dl POC Glucose 125 H (70-99) mg/dl Lactate (0.4-2.0) mmol/L Calcium 8.4 L (8.5-10.1) mg/dl Magnesium (1.8-2.4) mg/dl Total Bilirubin (0.2-1) mg/dl AST (15-37) U/L ALT (12-78) U/L Alkaline Phosphatase (45-117) U/L Troponin I (0-0.045) ng/ml Total Protein (6.4-8.2) gm/dl Albumin (3.4-5.0) gm/dl Globulin (2.5-4.0) gm/dl Albumin/Globulin Ratio (0.9-2) Procalcitonin (0-0.5) ng/ml Urine Color Urine Appearance (Clear) Urine pH (4.5-7.5) Ur Specific [place] (1.000-1.030) Urine Protein (Negative) Urine Glucose (UA) (Negative) Urine Ketones (Negative) Urine Blood (Negative) Urine Nitrite (Negative) Urine Bilirubin (Negative) Urine Urobilinogen (Negative) Ur Leukocyte Esterase (Negative) Stl C. diff Tox B Gene Random Vancomycin mcg/ml 10/31/19 10/31/19 10/31/19 Range/Units 08:13 07:18 03:34 WBC 4.65 L (4.8-10.8) K/uL RBC 4.41 L (4.7-6.1) M/uL Hgb 12.5 L (14.0-18.0) g/dL Hct 36.9 L (42-52) % MCV 83.7 (80-100) fL MCH 28.3 (25-34) pg MCHC 33.9 (32-36) g/dL RDW Std Deviation 40.3 (36.4-46.3) fL RDW Coeff of Ramos 13.5 (11.5-14.5) % Plt Count 119 L (130-400) K/uL MPV 8.7 (7.4-10.4) fL Immature Gran % (Auto) 0.0 % Neut % (Auto) 50.4 % Lymph % (Auto) 39.8 % Frio % (Auto) 6.2 % Eos % (Auto) 3.0 % Baso % (Auto) 0.6 % Neut # (Auto) 2.34 (1.4-6.5) K/uL Lymph # (Auto) 1.85 (1.2-3.4) K/uL Frio # (Auto) 0.29 (0.11-0.59) K/uL Eos # (Auto) 0.14 (0-0.5) K/uL Baso # (Auto) 0.03 (0-0.2) K/uL Immature Gran # (Auto) 0.00 (0.00-0.02) K/uL PT (9.0-12.0) Seconds INR (0.9-1.1) APTT (21.0-31.0) Seconds PTT Ratio Sodium (136-145) mmol/L Potassium (3.5-5.1) mmol/L Chloride (98-107) mmol/L Carbon Dioxide (21-32) mmol/L Anion Gap (3-11) BUN (7-18) mg/dl Creatinine (0.6-1.4) mg/dl Est Cr Clr Drug Dosing ml/min Est GFR ( Amer) Est GFR (Non-Af Amer) BUN/Creatinine Ratio (10-20) Glucose (70-99) mg/dl POC Glucose 96 138 H (70-99) mg/dl Lactate (0.4-2.0) mmol/L Calcium (8.5-10.1) mg/dl Magnesium (1.8-2.4) mg/dl Total Bilirubin (0.2-1) mg/dl AST (15-37) U/L ALT (12-78) U/L Alkaline Phosphatase (45-117) U/L Troponin I (0-0.045) ng/ml Total Protein (6.4-8.2) gm/dl Albumin (3.4-5.0) gm/dl Globulin (2.5-4.0) gm/dl Albumin/Globulin Ratio (0.9-2) Procalcitonin (0-0.5) ng/ml Urine Color Urine Appearance (Clear) Urine pH (4.5-7.5) Ur Specific [place] (1.000-1.030) Urine Protein (Negative) Urine Glucose (UA) (Negative) Urine Ketones (Negative) Urine Blood (Negative) Urine Nitrite (Negative) Urine Bilirubin (Negative) Urine Urobilinogen (Negative) Ur Leukocyte Esterase (Negative) Stl C. diff Tox B Gene Random Vancomycin mcg/ml 10/30/19 10/30/19 10/30/19 Range/Units 23:01 22:00 20:46 WBC (4.8-10.8) K/uL RBC (4.7-6.1) M/uL Hgb (14.0-18.0) g/dL Hct (42-52) % MCV (80-100) fL MCH (25-34) pg MCHC (32-36) g/dL RDW Std Deviation (36.4-46.3) fL RDW Coeff of Ramos (11.5-14.5) % Plt Count (130-400) K/uL MPV (7.4-10.4) fL Immature Gran % (Auto) % Neut % (Auto) % Lymph % (Auto) % Frio % (Auto) % Eos % (Auto) % Baso % (Auto) % Neut # (Auto) (1.4-6.5) K/uL Lymph # (Auto) (1.2-3.4) K/uL Frio # (Auto) (0.11-0.59) K/uL Eos # (Auto) (0-0.5) K/uL Baso # (Auto) (0-0.2) K/uL Immature Gran # (Auto) (0.00-0.02) K/uL PT (9.0-12.0) Seconds INR (0.9-1.1) APTT (21.0-31.0) Seconds PTT Ratio Sodium (136-145) mmol/L Potassium (3.5-5.1) mmol/L Chloride (98-107) mmol/L Carbon Dioxide (21-32) mmol/L Anion Gap (3-11) BUN (7-18) mg/dl Creatinine (0.6-1.4) mg/dl Est Cr Clr Drug Dosing ml/min Est GFR ( Amer) Est GFR (Non-Af Amer) BUN/Creatinine Ratio (10-20) Glucose (70-99) mg/dl POC Glucose 244 H (70-99) mg/dl Lactate (0.4-2.0) mmol/L Calcium (8.5-10.1) mg/dl Magnesium (1.8-2.4) mg/dl Total Bilirubin (0.2-1) mg/dl AST (15-37) U/L ALT (12-78) U/L Alkaline Phosphatase (45-117) U/L Troponin I (0-0.045) ng/ml Total Protein (6.4-8.2) gm/dl Albumin (3.4-5.0) gm/dl Globulin (2.5-4.0) gm/dl Albumin/Globulin Ratio (0.9-2) Procalcitonin (0-0.5) ng/ml Urine Color Urine Appearance (Clear) Urine pH (4.5-7.5) Ur Specific [place] (1.000-1.030) Urine Protein (Negative) Urine Glucose (UA) (Negative) Urine Ketones (Negative) Urine Blood (Negative) Urine Nitrite (Negative) Urine Bilirubin (Negative) Urine Urobilinogen (Negative) Ur Leukocyte Esterase (Negative) Stl C. diff Tox B Gene TNP Random Vancomycin 6.9 mcg/ml 10/30/19 10/30/19 10/30/19 Range/Units 19:16 19:16 19:16 WBC (4.8-10.8) K/uL RBC (4.7-6.1) M/uL Hgb (14.0-18.0) g/dL Hct (42-52) % MCV (80-100) fL MCH (25-34) pg MCHC (32-36) g/dL RDW Std Deviation (36.4-46.3) fL RDW Coeff of Ramos (11.5-14.5) % Plt Count (130-400) K/uL MPV (7.4-10.4) fL Immature Gran % (Auto) % Neut % (Auto) % Lymph % (Auto) % Frio % (Auto) % Eos % (Auto) % Baso % (Auto) % Neut # (Auto) (1.4-6.5) K/uL Lymph # (Auto) (1.2-3.4) K/uL Frio # (Auto) (0.11-0.59) K/uL Eos # (Auto) (0-0.5) K/uL Baso # (Auto) (0-0.2) K/uL Immature Gran # (Auto) (0.00-0.02) K/uL PT (9.0-12.0) Seconds INR (0.9-1.1) APTT (21.0-31.0) Seconds PTT Ratio Sodium 134 L (136-145) mmol/L Potassium 4.9 (3.5-5.1) mmol/L Chloride 103 (98-107) mmol/L Carbon Dioxide 24 (21-32) mmol/L Anion Gap 7.0 (3-11) BUN 20 H (7-18) mg/dl Creatinine 1.28 (0.6-1.4) mg/dl Est Cr Clr Drug Dosing 78.8 ml/min Est GFR ( Amer) 67.6 Est GFR (Non-Af Amer) 58.3 BUN/Creatinine Ratio 15.6 (10-20) Glucose 277 H (70-99) mg/dl POC Glucose (70-99) mg/dl Lactate 0.5 (0.4-2.0) mmol/L Calcium 8.7 (8.5-10.1) mg/dl Magnesium 2.0 (1.8-2.4) mg/dl Total Bilirubin 0.2 (0.2-1) mg/dl AST 27 (15-37) U/L ALT 42 (12-78) U/L Alkaline Phosphatase 57 (45-117) U/L Troponin I < 0.015 (0-0.045) ng/ml Total Protein 7.7 (6.4-8.2) gm/dl Albumin 3.8 (3.4-5.0) gm/dl Globulin 3.9 (2.5-4.0) gm/dl Albumin/Globulin Ratio 1.0 (0.9-2) Procalcitonin < 0.05 (0-0.5) ng/ml Urine Color Urine Appearance (Clear) Urine pH (4.5-7.5) Ur Specific [place] (1.000-1.030) Urine Protein (Negative) Urine Glucose (UA) (Negative) Urine Ketones (Negative) Urine Blood (Negative) Urine Nitrite (Negative) Urine Bilirubin (Negative) Urine Urobilinogen (Negative) Ur Leukocyte Esterase (Negative) Stl C. diff Tox B Gene Random Vancomycin mcg/ml 10/30/19 10/30/19 10/30/19 Range/Units 19:16 19:16 19:15 WBC 5.83 (4.8-10.8) K/uL RBC 4.65 L (4.7-6.1) M/uL Hgb 13.3 L (14.0-18.0) g/dL Hct 38.8 L (42-52) % MCV 83.4 (80-100) fL MCH 28.6 (25-34) pg MCHC 34.3 (32-36) g/dL RDW Std Deviation 39.7 (36.4-46.3) fL RDW Coeff of Ramos 13.4 (11.5-14.5) % Plt Count 161 (130-400) K/uL MPV 9.2 (7.4-10.4) fL Immature Gran % (Auto) 0.2 % Neut % (Auto) 60.3 % Lymph % (Auto) 32.1 % Frio % (Auto) 5.0 % Eos % (Auto) 2.1 % Baso % (Auto) 0.3 % Neut # (Auto) 3.52 (1.4-6.5) K/uL Lymph # (Auto) 1.87 (1.2-3.4) K/uL Frio # (Auto) 0.29 (0.11-0.59) K/uL Eos # (Auto) 0.12 (0-0.5) K/uL Baso # (Auto) 0.02 (0-0.2) K/uL Immature Gran # (Auto) 0.01 (0.00-0.02) K/uL PT 10.7 (9.0-12.0) Seconds INR 1.0 (0.9-1.1) APTT 27.7 (21.0-31.0) Seconds PTT Ratio 1.0 Sodium (136-145) mmol/L Potassium (3.5-5.1) mmol/L Chloride (98-107) mmol/L Carbon Dioxide (21-32) mmol/L Anion Gap (3-11) BUN (7-18) mg/dl Creatinine (0.6-1.4) mg/dl Est Cr Clr Drug Dosing ml/min Est GFR ( Amer) Est GFR (Non-Af Amer) BUN/Creatinine Ratio (10-20) Glucose (70-99) mg/dl POC Glucose (70-99) mg/dl Lactate (0.4-2.0) mmol/L Calcium (8.5-10.1) mg/dl Magnesium (1.8-2.4) mg/dl Total Bilirubin (0.2-1) mg/dl AST (15-37) U/L ALT (12-78) U/L Alkaline Phosphatase (45-117) U/L Troponin I (0-0.045) ng/ml Total Protein (6.4-8.2) gm/dl Albumin (3.4-5.0) gm/dl Globulin (2.5-4.0) gm/dl Albumin/Globulin Ratio (0.9-2) Procalcitonin (0-0.5) ng/ml Urine Color Yellow Urine Appearance Clear (Clear) Urine pH 5.5 (4.5-7.5) Ur Specific [place] 1.013 (1.000-1.030) Urine Protein Negative (Negative) Urine Glucose (UA) 2+ H (Negative) Urine Ketones Negative (Negative) Urine Blood Negative (Negative) Urine Nitrite Negative (Negative) Urine Bilirubin Negative (Negative) Urine Urobilinogen Negative (Negative) Ur Leukocyte Esterase Negative (Negative) Stl C. diff Tox B Gene Random Vancomycin mcg/ml PG Care Time/CCT Total # of Minutes Spent Total Time Spent with Patient: Total time spent is greater than 50% in coordination of care (as documented) at patient's floor/unit and/or counseling patient: Coding Level of Care Code 12131 Subseq Hosp Care Lvl 3 Diagnoses Acute deep vein thrombosis (DVT) of left upper extremity I82.622 Affected thrombotic vein of extremity: unspecified vein of extremity Osteomyelitis M86.9 Laterality: left Osteomyelitis location: foot Osteomyelitis type: unspecified type Peripheral arterial disease I73.9 Diabetes E11.42; Z79.4 Diabetes mellitus complication detail: with polyneuropathy Diabetes mellitus complication status: with neurologic complications Diabetes mellitus jail insulin use: with watermelon inspector use Diabetes mellitus type: type 2 Anxiety F41.9 Hypertension I10 Hypertension type: essential hypertension Asthma J45.20 Asthma complication type: uncomplicated Asthma persistence: intermittent Asthma severity: mild Depression F32.9 Active/Remission status: remission status unspecified Depression Type: major depressive disorder Major depression recurrence: unspecified whether recurrent DVT prophylaxis Z29.9 (1) Diabetes Diabetes mellitus complication detail: with polyneuropathy Diabetes mellitus complication status: with neurologic complications Diabetes mellitus watermelon inspector insulin use: with watermelon inspector use Diabetes mellitus type: type 2 Qualified Code(s): E11.42 - Type 2 diabetes mellitus with diabetic polyneuropathy; Z79.4 - MCFP (current) use of insulin (2) Depression Active/Remission status: remission status unspecified Depression Type: major depressive disorder Major depression recurrence: unspecified whether recurrent Qualified Code(s): F32.9 - Major depressive disorder, single episode, unspecified (3) Acute deep vein thrombosis (DVT) of left upper extremity Affected thrombotic vein of extremity: unspecified vein of extremity Qualified Code(s): I82.622 - Acute embolism and thrombosis of deep veins of left upper extremity (4) Hypertension Hypertension type: essential hypertension Qualified Code(s): I10 - Essential (primary) hypertension (5) Asthma Asthma complication type: uncomplicated Asthma persistence: intermittent Asthma severity: mild Qualified Code(s): J45.20 - Mild intermittent asthma, uncomplicated (6) Osteomyelitis Laterality: left Osteomyelitis location: foot Osteomyelitis type: unspecified type Qualified Code(s): M86.9 - Osteomyelitis, unspecified
[2019-10-31] MEDS: SIMETHICONE 80 MG CHEW PO PRN (14:11)
[2019-10-31] MEDS ORDERED: WARFARIN SOD 5 MG TAB PO SCH (16:00)
[2019-10-31] MEDS ORDERED: PRAVASTATIN SOD 40 MG TAB PO SCH (17:00)
[2019-10-31] MEDS: TRAMADOL HCL 50 MG TABLET PO PRN (19:27)
[2019-10-31] MEDS: SERTRALINE HCL 50 MG TABLET PO SCH (21:12)
[2019-10-31] MEDS: lisinopriL 20 MG TAB PO SCH (21:13)
[2019-10-31] MEDS: TEMAZEPAM 15 MG CAPSULE PO PRN (21:24)
[2019-11-01 06:00] LABS: Basophils # (auto) 0.03 K/uL (0-0.2); Basophils % (auto) 0.6 %; Eosinophils # (auto) 0.14 K/uL (0-0.5); Eosinophils % (auto) 2.9 %; Hematocrit (blood only) 37.5 % (42-52); Hemoglobin 12.5 g/dL (14.0-18.0); Immature Granulocytes # (auto) 0.01 K/uL (0.00-0.02); Immature Granulocytes % (auto) 0.2 %; Lymphocytes # (auto) 1.75 K/uL (1.2-3.4); Mean Corpuscular Hemoglobin 28.1 pg (25-34); Mean Corpuscular Hgb Conc 33.3 g/dL (32-36); Mean Corpuscular Volume 84.3 fL (80-100); Mean Platelet Volume 8.7 fL (7.4-10.4); Monocytes % (auto) 8.2 %; Neutrophils # (auto) 2.53 K/uL (1.4-6.5); Neutrophils % (auto) 52.1 %; Platelet Count 135 K/uL (130-400); RDW Coefficient of Variation 13.5 % (11.5-14.5); RDW Standard Deviation 41.2 fL (36.4-46.3); Red Blood Count 4.45 M/uL (4.7-6.1); White Blood Count 4.86 K/uL (4.8-10.8)
[2019-11-01 06:09] LABS: INR 1.1 (0.9-1.1)
[2019-11-01] MEDS: ACETAMINOPHEN 500 MG TAB PO PRN (06:26)
[2019-11-01 06:30] LABS: BUN Creatinine Ratio 13.9 (10-20); Calcium 8.7 mg/dl (8.5-10.1); Est GFR (African American) 92.2; Est GFR (Non-African American) 79.6; Potassium 3.9 mmol/L (3.5-5.1)
[2019-11-01] MEDS: TRAMADOL HCL 50 MG TABLET PO PRN (08:14)
[2019-11-01] MEDS: SIMETHICONE 80 MG CHEW PO PRN (08:14)
[2019-11-01] MEDS: GABAPENTIN 800 MG TAB PO SCH ×2 (08:15→13:44)
[2019-11-01] MEDS: metroNIDAZOLE 500 MG TAB PO SCH ×2 (08:15→13:44)
[2019-11-01] MEDS: ASCORBIC ACID 500 MG TAB PO SCH (08:16)
[2019-11-01] MEDS ORDERED: VANCOMYCIN TROUGH ONE (09:30)
[2019-11-01] MEDS: clonazePAM 1 MG TAB PO SCH ×2 (10:03→13:43)
[2019-11-01] MEDS: INSULIN HUMAN NPH SC SCH (10:06)
[2019-11-01] MEDS: INSULIN ASPART 100 UNITS/ML 3 ML PEN SC SCH ×2 (10:09→13:18)
[2019-11-01] MEDS: VANCOMYCIN HCL 1,250 MG in SODIUM CHLORIDE 0.9% 250 ML IV SCH (10:40)
[2019-11-01] MEDS: ENOXAPARIN INJ 120 MG/0.8 ML SYR SQ SCH (10:41)
[2019-11-01] MEDS ORDERED: VANCOMYCIN HCL 500 MG in 0.9 % SODIUM CHLORIDE 100 ML IV ONE (12:45)
--- NOTE | 2019-11-01 12:55 | Pharmacy Report ---
Pharmacy Glycemic Short Note 2 - Date of Service November 01, 2019 - Glycemic Short BSG Results (Last 24 hours): 10/31/19 10/31/19 11/01/19 17:18 20:16 05:36 Glucose 102 H POC Glucose 91 111 H 11/01/19 11/01/19 08:02 12:22 Glucose POC Glucose 132 H 137 H OUTPATIENT ANTIDIABETIC REGIMEN: * U-500 insulin: 100units TID with meals * Dulaglutide 0.75mg once weekly on * A1c = 10.6% 10/01/19 ASSESSMENT: * BSGs well controlled over last 24 hrs * 73 units of SQ insulin administered over last 24 hrs while tolerating a diet (utilizing NPH and Novolog) * Patient requiring substantially less insulin during hospitalization vs reported outpt regimen * Fasting BSG 132 this AM with current NPH dosing scale * Post-prandial BSGs well controlled with current Novolog orders PLAN FOR INPATIENT GLYCEMIC CONTROL: * Hold outpatient oral diabetes medications * Basal insulin * NPH SQ BID per scale * 15 units if BSG less than 110 * 20 units if BSG 110-180 * 25 units if BSG greater than 180 * Bolus insulin * NovoLog per scale ACHS or Q6hrs while NPO * Goal Range: Low 110 mg/dL - High 140 mg/dL * Correction Factor: 15 mg/dL/unit * Nutritional / Prandial insulin per carb ratio of 1 unit per 4 grams CHO consumed
--- NOTE | 2019-11-01 13:31 | Pharmacy Report ---
Pharmacy Abx Dose Short Note - Date of Service November 01, 2019 - Assessment & Plan Assessment * 64 year old M receiving VANCOMYCIN 1250mg IV Q 12 hrs (dosing per Pharmacy consult) for treatment of foot osteomyelitis * Patient is also receiving PO METRONIDAZOLE * Day # 4 IV vancomycin therapy this admission however pt was started on this therapy in the outpt setting, unclear start date, however pt to complete a 6 week course of vancomycin due to intolerances of other abx options * Renal fxn stable, afebrile, no leukocytosis noted * No growth in blood cx's * 10/10/19 foot cx grew CoN staph, sensitive to vanco (DANIELLA 2), daptomycin, smx/tmp and clindamycin Plan Vancomycin * Vancomycin level was drawn today, however this level was drawn at the incorrect time. Level was drawn 4 hours early and is not reflect of trough. * Today's level = 15.2, which to me indicates patient will require a higher dose than currently ordered as this level will fall over the next 4 hrs * Goal trough level for bone/joint infxn: 15-20mcg/mL * Patient did not qualify for AUC dosing due to wt > 100kg * Of note, I spoke with Sunil Henry today and she reports that pt was receiving 1750mg Q 12 hrs as out-pt. She has plans to discharge the patient today. Will give additional 500mg dose after the 1250mg AM dose finishes infusing. Patient will then resume 1750mg Q 12 hrs. * Recommend f/u trough level in the next 48 hrs on this dosage. Pharmacy will continue to follow and will adjust dose/frequency as necessary. Thank you.
--- NOTE | 2019-11-01 13:38 | Discharge Summary ---
Date of Service November 01, 2019 Admission HPI Per Admitting Provider Lenin Villa is a 64yo C male with history of poorly controlled DM II on high dose insulin, peripheral neuropathy, HTN, HLP, COPD. Patient injured his LLE in August 2019 while moving furniture. This injury progressed into a non-healing infection resulting in amputation of the 5th digit performed at [facility] on 06 September 2019. Patient was treated with IV Vancomycin and Ceftriaxone x 23 days. He then developed an infection of the PICC site and was hospitalized x 2 days for IV antibiotics (09/30/19 - 10/02/19). He had some worsening redness and swelling of the left foot and was seen in the ER. He had an MRI performed on 10/10/19 which showed possible early osteomyelitis of the distal fifth metatarsal. He was admitted and treated with IV pain medication as well as Vancomycin and Ceftriaxone. He had angiogram with balloon angioplasty of the left anterior tibial artery performed on 10/13/[address] Murray. He had a PICC line placed and was to receive Daptomycin x 6 weeks for his left 5th metatarsal osteomyelitis. He was discharged home on 10/16/19. Patient was transitioned to Vancomycin due to intolerance to Daptomycin - nausea/vomiting and emotional lability. He was recently started on Trulicity 0.75mg IV q Patient returned to the ER on 10/29/19 with complaint of LUE pain as well as redness and swelling. He was found to have a nearly occlusive DVT of the left axillary and subclavian veins around the PICC line as well as a nearly occlusive superficial venous thrombus is present in the left basilic vein. Patient was administered Vancomycin 1250mg IV as well as Lovenox and Coumadin. A new PICC line was not placed in the ER due to staffing therefore it was arranged for him to have the RUE PICC pulled with a LUE placed at the [facility] today. However, when patient arrived at the [facility] for these procedures he was instructed to come to the ER. Patient has subjective fevers and chills as well as nausea, vomiting and diarrhea at home. No additional complaints at this time. He is tired of being in the hospital and dealing with complications. He denies cough/CP/SOB/dysuria. No concerns for Covid-19 infection. ER Course: Acetaminophen, Zofran, NSS Admission Exam Per Admitting Provider General: patient resting comfortably, NAD, non-toxic in appearance, AA&O x 4 Skin: warm, dry, intact, no rashes or lesions HEENT: NC/AT, PERRL, EOMI, anicteric sclera, conjunctiva without injection, external ear normal to inspection and nontender, nares patent, moist mucus membranes, dentition intact, no oropharyngeal lesions, neck supple, trachea midline, no LAD, no thyromegaly, no JVD Heart: +S1/S2, regular, 3/6 JESSICA at right 2nd ICS Lungs: equal air entry bilaterally, no rales/rhonchi/wheezes Abd: +BS, soft, NT/ND, no masses/organomegaly/ascites Ext: warm, 2+ pulses in UE, 1+ pulses in LE, dressing in place LLE, LUE PICC with slight warmth/tenderness and swelling of forearm and upper arm, new RUE PI CC line in place with dressing intact, no bleeding/drainage or erythema Neuro: nonfocal, patient AA&O x 4, speech intact, no facial droop, moving all extremities on command with equal strength 5/5 Principal Diagnosis LEFT UPPER EXTREMITY DVT Discharge Exam Constitutional WD/WN, vitals as above + obese; no acute distress Eyes PERRL, conjunctivae normal, anicteric sclerae ENMT external ear and nose normal, oropharynx normal Neck trachea midline, no thyromegaly Respiratory normal respiratory effort, lungs clear to auscultation Cardiovascular RRR, no murmur, no edema Gastrointestinal (Abdomen) normal bowel sounds, soft, nontender, no hepatosplenomegaly Musculoskeletal no cyanosis or clubbing, extremities motor strength 5/5 5th digit amputation LEFT foot with dressing -- minimal drainage on dressing with flap present. Now with aquacell and optifoam PICC line to RUE LUE without warms, erythema. Nontender to palpation Neurologic PERRL, EOMI, accommodation nl, no face palsy, no dysarthria Psychiatric Orientation: alert, oriented x 3 and cooperative Lymphatic no cervical or axillary lymphadenopathy Discharge Data Allergies Allergy/AdvReac Type Severity Reaction Status Date / Time codeine Allergy Unknown RASH, Verified 10/30/19 17:02 VOMITING Penicillins Allergy Unknown RASH Verified 10/30/19 17:02 amoxicillin [From Augmentin] Allergy Vomiting Verified 10/30/19 17:02 ciprofloxacin [From Cipro] Allergy Hives Verified 10/30/19 17:02 clavulanic acid Allergy Vomiting Verified 10/30/19 17:02 [From Augmentin] exenatide [From Bydureon] Allergy . Verified 10/30/19 17:02 Consultations 10/30/19 20:14 ED Decision to Admit Stat 10/31/19 19:05 Consult Anticoagulation Clinic Routine Ordered Studies 10/29 Venous Study BL UE CXR Hospital Course (1) Acute deep vein thrombosis (DVT) of left upper extremity: * Acute DVT of LUE at site of PICC line. On admission, extremity is warm with palpable pulses, tender to palpation. Had received Lovenox and Coumadin and will continue to bridge until therapeutic * INR 1.1 * Holding ASA 325mg while patient is on anticoagulation bridging. Will needed resumed given hx PAD/recent stenting. Could consider 81mg ASA daily for now. Follow up with PCP * PICC line discontinued --> IV team placed new PICC line RUE 10/30 -- will need for continued Vancomycin for Osteo (started beginning of October and to be continued for 6 weeks). Rx sent to [facility] * Discussed with Dr. Taylor -- patient to receive 7.5mg coumadin 10/31 and continue with 5mg daily and Lovenox 120mg SC BID and follow up with Coag clinic 11/01 for further management. Patient with home health and able to have INR checks and coordination with coag clinic moving forward. * BCx NGTD (2) Osteomyelitis: * Patient afebrile, HD stable. Foot is improving. He continues on IV Vancomycin. States he is on Linezolid and Flagyl as well? * Continued IV Vancomycin, PO Flagyl. * No longer on Linezolid * Continued dressing changes as recommended by wound RN last admission with Aquacell Ag and optifoam dressings. Wound care follow up as already scheduled in one week * Tylenol, tramadol prn pain while inpatient. No pain reported at discharge (3) Peripheral arterial disease: * s/p angioplasty of left tibial with improved flow. * Held ASA for now as patient is on Coumadin with Lovenox bridge, concern for bleeding. * Resumed Pravastatin 40mg po daily as patient no longer on Daptomycin (4) Diabetes: * Patient with poorly controlled Type II DM. He is on high dose insulin U-500, 100u TID and was recently started on Trulicity. Last HgbA1C on 10/01/19 was 10.6 * Continue U-500, will place pharmacy consult to assist with glycemic management * Continued Gabapentin 800mg po TID for neuropathic pain * Continued Lisinopril 20mg po daily * ASA as above (5) Anxiety: * Chronic. * Continued Clonazepam 1mg PO TID scheduled * Continued home sertraline 50mg HS (6) Hypertension: * BP 142/77 * Continued home lisinopril 20mg daily (7) Asthma: * Chronic. Minimal wheezing at discharge. Patient stated no SOB and plans to do neb once at home this evening (8) Depression: * Chronic. Possibly exacerbation due to chronic illness and frequent hospitalizations * Continued Sertraline 50mg po qHS (9) DVT prophylaxis: * Coumadin, Lovenox Discharge with bridging coumadin 5mg PO/lovenox 120 SC BID until therapeutic. Follow up with Coag clinic in AM for further management. INRs to be done by home health. 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 Recommended follow up with Endocrinology for DM and sleep medicine for AMBER evaluation. Total Time Total Time Spent Total Time Spent (In Minutes): 90 Discharge Plan Discharge Items Patient Disposition: Home - Self-Care Reason For Visit: LUE DVT Discharge Diagnosis: Left Upper Extremity DVT Condition on Discharge: Good Goals: You have been hospitalized for an acute medical problem. During your stay at [facility], we have made an effort to correct the problem that brought you to the hospital while keeping you as comfortable as possible. Medications were used to bring your condition under control and your discharge instructions will include directions for any medications you should take after leaving the hospital. Please make sure you see your Primary Care Provider as part of your follow up plan. Activity: Resume your previous activity Non-emergency contact: Primary Care Provider Call non-emergency contact if: you have any medication questions, your symptoms worsen and your pain is not controlled Follow-up/Referrals: Danae Taylor MD, PhD [Pathologist] - 11/02/19 11:00 am (A follow up appt. has been made for you with Dr. Taylor on November 01 at 11:00am.) Guilherme Isaac MD [Primary Care Provider] - 11/07/19 1:30 pm Brenton Sánchez PA-C [Physician Epic Cadence Analyst] - 11/08/19 10:00 am (for DM) Oswaldo Hurtado II, DO [Physician] - (for Osteo) Diet: Carb Consistent or DM2 and Heart Healthy Addtl Attending Provider Instructions: You have been hospitalized for an upper extremity DVT secondary to your PICC line for antibiotics for your osteomyelitis. You have been treated with Coumadin and Lovenox and should continue as follows: * Coumadin 5mg by mouth daily * Lovenox 120mg SC TWICE daily You have been set up an appointment with Dr. Taylor from the coagulation clinic and have an appointment tomorrow morning as above. Please keep this appointment to get established with her and then home health may continue your INR lab draws and she may make adjustments to your Coumadin as needed. Please follow up with Endocrinology regarding your diabetes as well as sleep medicine for sleep apnea. Please follow up with Dr. Hurtado from infectious disease. Please follow up with Dr Isaac in the next week to monitor your progress. Now that you are not on Daptomycin, you may resume your pravastatin for cholesterol. This medication was held while you were on Daptomycin but now that you have transitioned back to Vancomycin you should resume this medication. You have been sent with Vancomycin 1750mg IV every 12 hours. This may need to be increased if repeat vancomycin trough in one week not in therapeutic range. Please return to the emergency room for any increased swelling, redness, pain, shortness of breath, or for any other symptoms that are concerning for you. It has been a pleasure being a part of the medical team providing for you while you have been in the hospital. Take care! Pending Studies at Discharge: No Stand-Alone Forms: My dateIITians, Smoking Cessation Medications and DC Order Prescriptions: New pravastatin 40 mg Tablet 40 mg PO DAILY@1700 30 Days Qty: 30 RF: 0 simethicone [Mi-Acid Gas Relief(simethicon)] 80 mg Tablet,Chewable 80 mg PO TID PRN (Reason: abdominal distention) Qty: 30 RF: 0 vancomycin 1.5 gram recon soln 1.75 gm IV Q12H Qty: 10 RF: 0 Continued cyclobenzaprine 5 mg tablet 5 mg PO TID PRN (Reason: Muscle Spasm) Qty: 90 RF: 1 gabapentin [Neurontin] 800 mg tablet 800 mg PO TID Qty: 90 RF: 3 Humulin R U-500 (Conc) Kwikpen 500 unit/mL (3 mL) insulin pen 100 unit SQ TIDM Qty: 6 RF: 11 lisinopril [Zestril] 20 mg tablet 20 mg PO HS Qty: 90 RF: 3 albuterol sulfate 2.5 mg /3 mL (0.083 %) solution for nebulization 2.5 mg INH Q8H PRN (Reason: Bronchospasm J 45.820) Qty: 180 RF: 3 ascorbic acid (vitamin C) 500 mg capsule 500 mg PO BID RF: 0 Centrum Silver 0.4-300-250 mg-mcg-mcg tablet 1 tab PO QAM RF: 0 clonazepam [Klonopin] 1 mg tablet 1 mg PO TID Qty: 90 RF: 0 chlorpheniramine maleate [Allergy (chlorpheniramine)] 4 mg tablet 4 mg PO Q12H PRN (Reason: itching) Qty: 60 RF: 5 Trulicity 0.75 mg/0.5 mL pen injector 0.75 mg SQ WEEKLY Qty: 2 RF: 2 acetaminophen [Tylenol Extra Strength] 500 mg Tablet 1,000 mg PO Q8H PRN (Reason: Pain) RF: 0 tramadol 50 mg Tablet 50 mg PO Q6H PRN (Reason: pain) Qty: 15 RF: 0 temazepam [Restoril] 30 mg Capsule 30 mg PO HS PRN (Reason: Sleep) RF: 0 ondansetron HCl [Zofran] 4 mg tablet 4 mg PO Q8H PRN (Reason: Nausea) RF: 0 sertraline 50 mg tablet 50 mg PO HS RF: 0 Lactinex 1 million cell tablet,chewable 3 tab PO QAM RF: 0 diphenhydramine HCl [Benadryl] 25 mg Capsule 50 mg PO HS PRN (Reason: Sleep) RF: 0 warfarin 5 mg tablet 5 mg PO DAILY Qty: 5 RF: 0 enoxaparin [Lovenox] 120 mg/0.8 mL syringe 120 mg SQ Q12H 5 Days Qty: 8 RF: 0 metronidazole [Flagyl] 500 mg Tablet 500 mg PO TID RF: 0 Discontinued (DME) Pic Line reinsertion Qty: 1 RF: 0 (DME) [facility] Referral Qty: 1 RF: 0 aspirin 325 mg tablet,delayed release (DR/EC) 325 mg PO QAM RF: 0 vancomycin 1.25 gram recon soln 1.25 g IV Q12H RF: 0 linezolid [Zyvox] 600 mg Tablet 600 mg PO BID RF: 0 Discharge Orders: Discharge Order (Routine); Ordered 11/01/19 Ordered By: Deirdre Henry Admission Data Admit Date/Time: 10/30/19 20:49 Attending Provider: Dalton Laura Admit Provider: Melina Perera Primary Care Provider: Guilherme Isaac Other Providers: Melina Perera ; Danae Taylor ; [place] Other Interventions: Discharge Summary Assessment (RN) Last Done: 11/01/19 15:41 DC Date/Time DO NOT enter until pt leaves facility: 11/01/19 16:22 Supervising Physician Co-Signing Physician Notes Patient was seen and examined independently I discussed the case with Deirdre Henry PAC I reviewed pertinent past medical social family history and also the plan of care and agree with the plan of care. 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
[2019-11-01] MEDS ORDERED: WARFARIN SOD 7.5 MG TAB PO ONE (14:00)
[2019-11-01] MEDS ORDERED: VANCOMYCIN HCL 1,750 MG in SODIUM CHLORIDE 0.9% 500 ML IV SCH (22:00)
--- NOTE | 2019-11-02 08:11 | Electrocardiogram Report ---
Test Reason : Blood Pressure : / mmHG Vent. Rate : 079 BPM Atrial Rate : 079 BPM P-R Int : 222 ms QRS Dur : 098 ms QT Int : 368 ms P-R-T Axes : 069 014 006 degrees QTc Int : 421 ms Poor data quality, interpretation may be adversely affected Sinus rhythm with 1st degree A-V block Otherwise normal ECG When compared with ECG of 30-SEP-2019 21:39, No significant change was found Confirmed by Asa Alba ([id number]) on 11/02/2019 8:10:28 AM Referred By: REFERRED SELF Confirmed By:Asa Alba
== END 2019-11-01 16:22 | disposition home or self-care (01) | DRG 315 ==
LOC: ED 15:02 → SUATTDRO 20:49 → 3W 20:49